=== PATIENT | male | born 1970 | race Caucasian/White ===

== ENCOUNTER 2017-04-10 08:37 | Emergency (ER) | payer OTHER ==
[~2017-04-10] VITALS: Ht 162.6 cm; Wt 56.7 kg
[~2017-04-10 08:37] MED LIST: COLACE100 MG PO; DOCUSATE SODIU250 MG PO; ETODOLAC400 MG PO; LITHIUM8 MEQ/5 ML PO; MAGNESIUM CITR296 ML PO; METAMUCIL1 PKT NG; MULTI VITAMIN1 EACH PO; PAXIL10 MG/5 ML PO; PROPRANOLOL HCL20 MG PO; ZYPREXA ZYDIS20 MG PO; ZYPREXA20 MG PO
[2017-04-10] MEDS ORDERED: BACLOFEN10 MG PO (09:01)
[2017-04-10] MEDS ORDERED: ONDANSETRON ODT8 MG PO (09:01)
[2017-04-10] MEDS ORDERED: ADULT GLYCERIN1 EACH PR (09:36)
[2017-04-10] MEDS ORDERED: FLEET ENEMA133 ML PR (09:36)
[2017-07-19] MEDS ORDERED: BACLOFEN10 MG PO (19:03)
[2017-07-19] MEDS ORDERED: MILK OF MA400 MG/5 M PO (19:04)
[2017-07-19] MEDS ORDERED: CEFADROXIL500 MG PO (19:05)
[2017-07-19] MEDS ORDERED: BACTRIM DS TAB1 EACH PO (19:05)
[2017-08-14] MEDS ORDERED: BACTRIM DS TAB1 EACH PO (00:14)
== END 2017-04-10 11:56 | disposition home or self-care (01) ==
LOC: ED 08:37
DX: K56.41 Fecal impaction (principal); F20.9 Schizophrenia, unspecified; Z79.899 Other long term (current) drug therapy
CPT/HCPCS: 99282

== ENCOUNTER 2017-05-15 16:28 | Emergency (ER) | payer OTHER ==
[~2017-05-15] VITALS: Ht 162.6 cm; Wt 56.7 kg
[~2017-05-15 16:28] MED LIST changes: +ADULT GLYCERIN1 EACH PR; +BACLOFEN10 MG PO; +FLEET ENEMA133 ML PR; +ONDANSETRON ODT8 MG PO
[2017-07-19] MEDS ORDERED: BACLOFEN10 MG PO (19:03)
[2017-07-19] MEDS ORDERED: MILK OF MA400 MG/5 M PO (19:04)
[2017-07-19] MEDS ORDERED: BACTRIM DS TAB1 EACH PO (19:05)
[2017-07-19] MEDS ORDERED: CEFADROXIL500 MG PO (19:05)
[2017-08-14] MEDS ORDERED: BACTRIM DS TAB1 EACH PO (00:14)
== END 2017-05-15 19:03 | disposition home or self-care (01) ==
LOC: ED 16:28
DX: K59.00 Constipation, unspecified (principal); F20.9 Schizophrenia, unspecified; Z79.899 Other long term (current) drug therapy
CPT/HCPCS: 80053; 83735; 85025; 96360; 99283; J7030

== ENCOUNTER 2017-05-18 09:32 | Emergency (ER) | payer OTHER ==
[~2017-05-18] VITALS: Ht 162.6 cm; Wt 55.3 kg
[2017-05-18] MEDS ORDERED: MILK OF MA400 MG/5 M PO (09:56)
[2017-07-19] MEDS ORDERED: BACLOFEN10 MG PO (19:03)
[2017-07-19] MEDS ORDERED: MILK OF MA400 MG/5 M PO (19:04)
[2017-07-19] MEDS ORDERED: CEFADROXIL500 MG PO (19:05)
[2017-07-19] MEDS ORDERED: BACTRIM DS TAB1 EACH PO (19:05)
[2017-08-14] MEDS ORDERED: BACTRIM DS TAB1 EACH PO (00:14)
== END 2017-05-18 18:18 | disposition home or self-care (01) ==
LOC: ED 09:32
PROC: 0T9B70Z Drainage of Bladder with Drainage Device, Via Natural or Artificial Opening (ICD-10-PCS; principal; 2017-05-18)
DX: K59.00 Constipation, unspecified (principal); Z79.899 Other long term (current) drug therapy
CPT/HCPCS: 51701; 74020; 74177; 80053; 81001; 83735; 85025; 96360; 99284; J7030; Q9967

== ENCOUNTER 2017-05-19 11:45 | Inpatient (IN) | payer OTHER ==
[~2017-05-19] VITALS: Ht 162.6 cm; Wt 56.7 kg
[~2017-05-19 11:45] MED LIST changes: +MILK OF MA400 MG/5 M PO
--- NOTE | 2017-05-19 18:29 | NUR ---
PT ARRIVED TO FLOOR WITH CAREGIVER AT BEDSIDE. PT MOSTLY NON-VERBAL. 2 PERSON ASSIST, CAREGIVER WILL ASSIST. IV STARTED, FLUIDS RUNNING. CLEAR LIQUIDS AT THIS TIME.
--- NOTE | 2017-05-19 19:25 | NUR ---
RECIEVED REPORT FROM DAY SHIFT NURSE. PT IN BED WITH CAREGIVER AT BEDSIDE. PT APPEARS TO BE IN ALOT OF PAIN. CONSTANT FROWN NOTED. PT HAS NOT VOIDED SINCE HE ARRIVED ON MS. HUMBERTO RUANO IN REACH.
--- NOTE | 2017-05-19 20:00 | NUR ---
ATIVAN ADMINISTERED. CALLED MD FOR ENEMA ORDER AND CATHETER ORDER. CAREGIVER AT BEDSIDE. CALL RUANO IN REACH.
--- NOTE | 2017-05-19 20:36 | NUR ---
FAYE CATHETER INSERTED AT 2030 AFTER BLADDER SCAN SHOWED OVER 999CC IN BLADDER.
--- NOTE | 2017-05-19 21:03 | NUR ---
SOAP SUDS ENEMA ADMINISTERED. PT ABLE TO TOLERATE 900CC. SMALL AMOUNT OF STOOL LEAKED OUT AFTER ADMINISTRATION. PT LYING IN L LATERAL GONZALES. CAREGIVER AT BEDSIDE. ENCOURAGED CAREGIVER TO USE CALL LIGHT WHEN PT STARTS TO EXPELL FLUID FROM RECTUM. CALL RUANO IN REACH.
--- NOTE | 2017-05-19 21:14 | NUR ---
PT UP TO BSC WITH HELP OF CAREGIVER. CALL RUANO IN REACH.
--- NOTE | 2017-05-19 21:30 | NUR ---
700CC BROWN LIQUID OUT. PT BACK TO BED. SECOND ENEMA TO BE GIVEN IN ABOUT 1/2 HOUR.
--- NOTE | 2017-05-19 22:00 | NUR ---
SECOND SOAP SUDS ENEMA GIVEN IN L LATERAL GONZALES. PT ABLE TO TOLERATE 1000CC. CAREGIVER AT BEDSIDE. CALL RUANO IN REACH.
--- NOTE | 2017-05-19 22:35 | NUR ---
PT UP TO BSC WITH ASSIST FROM CAREGIVER. DR. MILLER IN TO SEE PT.
--- NOTE | 2017-05-19 22:45 | NUR ---
PT OFF BSC-600CC LIQUID BROWN STOOL OUT. PT BACK TO BED WITH HELP OF CAREGIVER. TORADOL ADMINISTERED. PT STILL WITH CONSTANT FROWN-ATIVAN AND TORADOL GIVEN. NEW IVF HANGING. CALL RUANO IN REACH.
--- NOTE | 2017-05-20 01:31 | NUR ---
PT SLEEPING. VS OBTAINED. IVF INFUSING W/O DIFFICULTY. CAREGIVER AT BEDSIDE. CALL RUANO IN REACH.
--- NOTE | 2017-05-20 03:45 | NUR ---
PT SLEEPING. CAREGIVER AT BEDSIDE. IVF INFUSING W/O DIFFICULTY. CALL RUANO IN REACH.
--- NOTE | 2017-05-20 04:58 | NUR ---
PT SLEEPING. CAREGIVER AT BEDSIDE. IVF INFUSING W/O DIFFICULTY. CALL RUANO IN REACH.
--- NOTE | 2017-05-20 05:30 | NUR ---
PT INCONT OF LIQUID STOOL. BED BATH PERFORMED. BED LINEN CHANGED. PT UP TO BSC. ABLE TO PASS SMALL HARD PELLET.
--- NOTE | 2017-05-20 06:12 | NUR ---
PT SLEPT MOST OF THE NIGHT. 2 SOAP SUDS ENEMAS ADMINISTERED AT START OF SHIFT W/O RESULTS. PT INCONT. OF STOOL THIS MORNING. BED BATH GIVEN. ATIVAN ADMINISTERED X3 LAST NIGHT. CAREGIVER "REGINALDO" WITH PATIENT.
--- NOTE | 2017-05-20 07:23 | NUR ---
RECIEVED BEDSIDE REPORT FROM GM ROJO. PT IN BED RESTING WITH CAREGIVER AT BEDSIDE. NO SIGNIFICANT BM OVERNIGHT. X-RAY COMPLETE THIS AM.
--- NOTE | 2017-05-20 08:03 | NUR ---
PATIENT SLEEPING, DID NOT WANT TO DISTURB HIM. WHITEBOARD UPDATED. ROOM TIDIED.
--- NOTE | 2017-05-20 09:45 | NUR ---
PT STILL SLEEPING, WOKE TO CAREGIVER FOR ASSESSMENT AND MEDICATIONS. PT APPEARS RELAXED AND COMFORTABLE. UNABLE TO FOLLOW MOST DIRECTIONS. WILL DRINK APPLE JUICE WITH CUING. FAYE DRAINING DK YELLOW URINE. NO BM YET. IMAGING NOT COMPLETE.
--- NOTE | 2017-05-20 09:50 | NUR ---
PATIENT STILL ASLEEP, GETS A LOT OF ANXIETY WHEN AWAKE SO I DO NOT WANT TO WAKE HIM FOR AM CARE UNTIL HE WAKES UP BY HIMSELF. CAREGIVER AGREES.
--- NOTE | 2017-05-20 12:10 | NUR ---
PT RECIEVED SOAPSUDS/TAP WATER ENEMA WITH MINIMAL RESULTS. PT TOLERATED PROCEDURE WELL. PT HAD SMALL AMT OF LIQUID DM IN ATTENDS PRIOR TO ENEMA. PT PLACED ON LEFT SIDE WITH ATTEND ON. WILL REPEAT ENEMA IF NO RESULTS.
--- NOTE | 2017-05-20 13:29 | NUR ---
PATIENT STILL SLEEPING. WOKE UP A FEW MINUTES AGO TO DRINK APPLE JUICE, BUT OTHERWISE SLEEPING. DID NOT WAKE UP FOR VITAL SIGNS.
--- NOTE | 2017-05-20 15:51 | NUR ---
PT IN BED WATCHING FOOTBALL WITH CAREGIVER. NO DISTRESS NOTED, PT SMILING AT STAFF. PT DRIFTED TO SLEEP WHILE DOING ASSESSMENT. NO SIZEABLE BM NOTED.
--- NOTE | 2017-05-20 16:50 | NUR ---
ADMINISTERED ADDITIONAL SOAPSUDS/TAPWATER ENEMA WITH VERY MINIMAL RESULTS. PT TOLERATED WELL. PT AGREEABLE TO SITTING ON THE COMMODE AFTER A WHILE. WILL ATTEMPT LATER THIS SHIFT.
--- NOTE | 2017-05-20 17:50 | NUR ---
NO SIGNIFCANT BM THIS SHIFT. TAP WATER/SOAPSUDS ENEMA X2. SMALL LIQUID BM WITH FIRST ENEMA. PT UP TO COMMODE, MINIMAL RESULTS. PT UNWILLING TO BE OOB FOR ANY LENGTH OF TIME. NO PRN ATIVAN GIVEN. FAYE DRAINING WELL. IV FLUIDS CONTINUE. PT NPO AFTER MIDNIGHT.
--- NOTE | 2017-05-20 19:44 | NUR ---
RECIEVED REPORT FROM DAY SHIFT NURSE. PT SLEEPING IN BED. BED ALARM ON. CAREGIVER AT BEDSIDE. CAREGIVER DENIES NEEDS. CALL RUANO IN REACH.
--- NOTE | 2017-05-20 20:40 | NUR ---
TAP WATER EMEMA ADMINISTERED IN L LATERAL GONZALES. PT ABLE TO TOLERATE 1000ML. PT MUCH MORE PLESANT TONIGHT. HE IS MORE VERBAL. ASKED ME WHAT MY NAME WAS. PT DOES NOT APPEAR TO BE IN ANY KIND OF DISTRESS. NO C/O PAIN EXCEPT WHEN TUBE WAS INITIALLY INSERTED INTO RECTUM. PROPANOLOL HELD THIS EVENING, HR 55-60. CAREGIVER AT BEDSIDE. CALL RUANO IN REACH.
--- NOTE | 2017-05-20 21:26 | NUR ---
PT UP TO BSC, HAD 450CC BROWN LIQUID OUT OF RECTUM ALONG WITH 5-6 SMALL-MED HARD STOOLS. PT BACK IN BED. BED ALARM ON. WILL REPEAT TAP WATER ENEMA IN 30 MINUTES. CALL RUANO IN REACH.
--- NOTE | 2017-05-20 21:50 | NUR ---
ADMINISTERED SECOND TAP WATER ENEMA. PT ABLE TO TOLERATE 1000CC IN. HE WAS ONLY ABLE TO HOLD IT FOR ABOUT 5 MINUTES. PT UP TO BSC AT THIS TIME. CAREGIVER SITTING WITH PATIENT WHILE HE TRIES TO HAVE BM. CALL RUANO IN REACH.
--- NOTE | 2017-05-20 22:20 | NUR ---
PT OFF BSC. 700CC BROWN LIQUID OUT. NO FORMED STOOL. PT BACK TO BED. ATTENDS IN PLACE. CAREGIVER AT BEDSIDE. CAREGIVER AND PT DENY NEEDS. CALL RUANO IN REACH.
--- NOTE | 2017-05-20 23:44 | NUR ---
PT UP TO BSC WITH 2 PERSON ASSIST. VOIDED. BACK TO BED. REPOSITIONED TO R SIDE, PT STATES SHE IS NOT COMFORTABLE ON THAT SIDE. PT SUPINE WITH BLE ELEVATED ON 2 PILLOWS. CALL RUANO IN REACH.
--- NOTE | 2017-05-21 00:16 | NUR ---
PT SLEEPING. CAREGIVER AT BEDSIDE. CHECKED FOR EPISODE OF INCONT., FOUND DRY. CALL RUANO IN REACH.
--- NOTE | 2017-05-21 01:36 | NUR ---
PT SLEEPING. CAREGIVER AT BEDSIDE. CHECKED FOR EPISODE OF INCONT., FOUND DRY. CALL RUANO IN REACH. BED ALARM ON.
--- NOTE | 2017-05-21 03:45 | NUR ---
PT CHECKED FOR EPISODE OF INCONT., FOUND DRY. IVF INFUSING W/O DIFFICULTY. FAYE EMPTIED PALE YELLOW URINE. BED ALARM ON, CALL RUANO IN REACH. PT HAS BEEN NPO SINCE 2229.
--- NOTE | 2017-05-21 04:26 | NUR ---
PT SLEEPING. BED ALARM ON, CALL RUANO IN REACH.
--- NOTE | 2017-05-21 05:05 | NUR ---
CHECKED FOR EPISODE OF INCONT., FOUND DRY. PT SLEEPING. ACTIVE BS AUSCULTATED. NO MORE STOOLS SINCE FIRST ENEMA GIVEN. IVF INFUSING W/O DIFFICULTY. CALL RUANO IN REACH. CAREGIVER DENIES NEEDS AT THIS TIME.
--- NOTE | 2017-05-21 05:45 | NUR ---
2 TAP WATER ENEMAS ADMINISTERED THIS SHIFT. LITTLE RESULTS AFTER FIRST ENEMA-(5-6 SMALL/MED HARD PELLETS). NO RESULTS WITH SECOND ENEMA. PT APPEARED MUCH MORE COMFORTABLE THIS SHIFT, SMILING AT STAFF. SLEPT MOST OF THE NIGHT. NO INCONTINENCE. ATTENDS IN PLACE. CAREGIVER AT BEDSIDE.
--- NOTE | 2017-05-21 06:50 | NUR ---
XRAY IN OBTAINING ABD XRAY.
--- NOTE | 2017-05-21 07:29 | NUR ---
PT IS VERY ANXIOUS, GRIMACING, TEARFUL. PRN ATIVAN GIVEN. DISSCUSSED PLAN OF THE DAY.
--- NOTE | 2017-05-21 08:00 | NUR ---
PATIENT RESTING IN BED. CAREGIVER STATES THAT PATIENT JUST CALMED DOWN AND ISN'T IN THE MOOD TO BE BOTHERED FOR ADL'S. LEFT WASH CLOTH, CLEAN GOWN AND TOOTH BRUSH OUT FOR USE. TALKED TO CAREGIVER ABOUT CALLING WHEN ITS A GOOD TIME FOR CARE.
--- NOTE | 2017-05-21 09:47 | NUR ---
PT SLEEPING, WOKE TO CAREGIVER QUESTIONS. TOOK ORAL MEDS WITH SMALL AMT OF JUICE PER DR MILLER'S ORDER. PROPRANOL HELD D/T LOWER BP AND CAREGIVER REQUEST. WAITING FOR SPOUT LINER HELPER TO COME IN TO SIGN CONSENT FOR PROCEDURE AND FLU SHOT.
--- NOTE | 2017-05-21 10:21 | NUR ---
SPOKE WITH PT'S CAREGIVERS AND WHIPPED TOPPING MIXER. ALL AGREED TO THE PROCEDURE, WHIPPED TOPPING MIXER AND AND CAREGIVER SIGNED CONSENT WITH RN WITNESS. ALL QUESTIONS WERE ANSWERED. VERBAL CONSENT FOR FLU SHOT WELL.
--- NOTE | 2017-05-21 10:30 | NUR ---
SPOKE WITH CAREGIVER REGINALDO VA [phone] AT BEDSIDE WITH PATIENT. PATIENT WILL RETURN HOME WITH THEM TO [facility]. PATIENT IS AWAKE, QUIET IN BED. CAREGIVER STATES PATIENT HAS BEEN IN [facility]. HAS CONSTIPATION ON OCCASION ABOUT ONCE EVERY 2 MONTHS. PATIENT IS ON BOWEL ROUTINE, USUALLY ONE ENEMA RELIEVES THE PROBLEM. HE STATES PATIENT HAD A MEDICATION CHANGE RECENTLY THAT THEY THINK MADE THIS WORSE. HE STATES DR MILLER WAS IN AND THE PLAN IS FOR SCOPE OF THE BOWEL LATER TODAY. HE STATES THE AGING AND DISABILITY ROLLER MILL OPERATOR IS COMING TO SIGN SURGERY PERMIT. HER NAME IS MATT BOSWELL. REGINALDO HAS NO BARRIERS TO RETURNING PATIENT HOME TO [facility].
--- NOTE | 2017-05-21 10:47 | NUR ---
PT SLEEPING, BREATHING EVEN AND UNLABORED. TAPING SUPERVISOR AND CAREGIVERS AT BEDSIDE.
--- NOTE | 2017-05-21 10:50 | NUR ---
PATIENT RESTING COMFORTABLY IN BED. CAREGIVER IN ROOM. NO NEEDS AT THIS TIME. TALKED TO CAREGIVER ABOUT BATHING THIS AFTERNOON.
--- NOTE | 2017-05-21 11:28 | NUR ---
PATIENT RESTING IN BED WITH EYES CLOSED.
--- NOTE | 2017-05-21 12:10 | NUR ---
PATIENT RESTING IN BED. BED BATH COMPLETE. [place], FAYE CATH, AND ORAL CARE DONE. LINENS CHANGED. CAREGIVER IN ROOM. NO OTHER NEEDS AT THIS TIME.
--- NOTE | 2017-05-21 14:29 | NUR ---
PT TRANSFERED TO SURGERY WITH REGINALDO, CAREGIVER. REPORT GIVEN TO GM MCDOWELL AND GM BROWN.
--- NOTE | 2017-05-21 15:41 | NUR ---
05/21/17 1541 Joana Mendoza 1532-PATIENT ARRIVED TO PACU ON 4L NC O2 SAT 100% PATIENT LAYING ON LEFT LATERAL SIDE. ABDOMEN SOFT. NONAROUSABLE. FAYE CATHETER TO GRAVITY.
--- NOTE | 2017-05-21 16:39 | NUR ---
PATIENT IS BACK FROM SURGERY. GOT PATIENT TUCKED INTO REGULAR BED. SEEMS TO BE DOING FAIRLY WELL.
--- NOTE | 2017-05-21 17:00 | NUR ---
PATIENT RESTING IN BED WATCHING TV. CAREGIVER IN ROOM. NO NEEDS AT THIS TIME.
--- NOTE | 2017-05-21 17:43 | NUR ---
PLACED FAYE CATHETER IN STERILE FASHION D/T URINARY RETENTION. BLADDER SCAN SHOWED 346ML POST VOID. PT TOLERATED WELL.
--- NOTE | 2017-05-21 18:08 | NUR ---
PT WENT TO PROCEDURE THIS AFTERNOON. BLOCKAGE CLEARED. ADVANCED TO REGULAR DIET, TOLERATED WELL. FAYE MAY BE D/C WHEN PO INTAKE IS ADEQUATE. NEW MEDICATIONS ORDERED. IV S/L.
--- NOTE | 2017-05-21 18:13 | NUR ---
PATIENT SITTING STRAIGHT UP IN BED. CAREGIVER ASSISTING WITH DINNER. NO OTHER NEEDS AT THIS TIME.
--- NOTE | 2017-05-21 19:00 | NUR ---
RECIEVED REPORT FROM DAY SHIFT NURSE. PT SITTING UP IN CHAIR, PEG ALARM ON. FAMILY IN ROOM. CALL RUANO IN REACH.
--- NOTE | 2017-05-21 19:20 | NUR ---
RECIEVED REPORT FROM DAY SHIFT NURSE. PT RESTING IN BED. CAREGIVER AT BEDSIDE. CAREGIVER REQUESTING FOR ATIVAN TO BE GIVEN TO HELP PT RELAX SO HE MAY SLEEP. I EXPLAINED TO HIM THAT PT SHOULD TRY TO SLEEP WITHOUT IT TONIGHT, IF PT IS ANXIOUS AND RESTLESS I CAN ALWAYS CALL . CALL BINDU IN REACH.
--- NOTE | 2017-05-21 19:59 | NUR ---
REMOVED FAYE FROM PT. TOLERATED WELL. PLACED ATTENDS IN THE EVENT HE IS INCONT. BENSON CAREGIVER AT BEDSIDE. WILL CALL WHEN PT NEEDS SOMETHING.
--- NOTE | 2017-05-21 20:52 | NUR ---
PT RESTING IN BED. HR AROUND 100 BPM. PT APPEARS ANXIOUS. OBTAINED ORDER FOR HOME MEDS AND ATIVAN. CALL RUANO IN REACH.
--- NOTE | 2017-05-21 21:15 | NUR ---
PT UP TO BSC TO ATTEMPT TO VOID. LOTS OF FLATUS EXPELLED. NO URINE OUTPUT AT THIS TIME. ATTENDS IN PLACE. CAREGIVER STATES PT CAN BE INCONT. AT TIMES. CALL RUANO IN REACH.
--- NOTE | 2017-05-21 23:08 | NUR ---
PT SLEEPING. CHECKED FOR EPISODE OF INCONT., FOUND DRY. CAREGIVER AT BEDSIDE. CALL RUANO IN REACH.
--- NOTE | 2017-05-22 01:09 | NUR ---
CHECKED FOR EPISODE OF INCONT., FOUND DRY, ASKED PT IF HE NEEDED TO VOID, PT SAID NO. BS ACTIVE. CAREGIVER AT BEDSIDE, CALL RUANO IN REACH.
--- NOTE | 2017-05-22 02:32 | NUR ---
PT HAD LARGE EPISODE OF URINARY INCONTINENCE. BED LINEN CHANGED. WASHED PT. BRIEF CHANGED. HYDRATION OFFERERD. CAREGIVER DENIES NEEDS. CALL RUANO IN REACH. BED ALARM ON.
--- NOTE | 2017-05-22 04:41 | NUR ---
WALKED INTO PT'S ROOM, PT WAS LYING SIDEWAYS ON HIS BED, EYES WIDE OPEN, STATES HE DOES NOT FEEL GOOD. ADMINISTERED 0.25MG ATIVAN. CHECKED FOR EPISODE OF INCONT., FOUND DRY. CAREGIVER AT BEDSIDE. CALL RUANO IN REACH.
--- NOTE | 2017-05-22 05:20 | NUR ---
COLONOSCOPY W/ WASHOUT SUCCESSFUL YESTERDAY. PT ANXIOUS AT START OF SHIFT, ATIVAN ADMINISTERED. FAYE CATH D/C. INCONTINENT OF URINE. PT ANSWERS SIMPLE QUESTIONS, DOES NOT ANSWER APPROPRIATELY AT TIMES. MOSTLY NON-VERBAL. EATING AND DRINKING WELL. MIRALAX, SENNA, METAMUCIL ON OCT. CAREGIVER (REGINALDO) AT BEDSIDE ASSISTS WITH CARE. MOST LIKELY D/C TODAY.
--- NOTE | 2017-05-22 06:00 | NUR ---
PT INCONT OF URINE. LINEN CHANGE. BRIEF CHANGE. NO C/O. CAREGIVER AT BEDSIDE.
--- NOTE | 2017-05-22 07:16 | NUR ---
CAREGIVER IN WITH PT. HE IS LAYING IN BED, WITH A PAINED EXPRESSION ON HIS FACE. HE STRUGGLED TO COMMUNICATE, TRIED TO SMILE AND FOLLOWED THE COMMAND OF CG TO THANK ME FOR COMING IN. I WILL CONTINUE TO FOLLOW
--- NOTE | 2017-05-22 07:40 | NUR ---
BEDSIDE REPORT FROM ALIA WORRELL, PT SLEEPING RR EVEN AT 16 BPM, CAREGIVER AT BEDSIDE.
--- NOTE | 2017-05-22 08:20 | NUR ---
PATIENT SITTING UP IN BED. WASHED HANDS AND FACE. ORAL CARE DONE. CAREGIVER STATES THAT HE WILL HAVE THE PATIENT TAKE A BATH WHEN HE GOES HOME TODAY. FRESH ICE WATER GIVEN. NO OTHER NEEDS AT THIS TIME.
--- NOTE | 2017-05-22 11:02 | NUR ---
PT RESTING IN BED WAS UP WITH CAREGIVERS TO VOID. NEW DRESSING PLACED BETWEEN TOES AT THIS TIME. HAS CAREGIVER AT BEDSIDE
--- NOTE | 2017-05-22 11:16 | NUR ---
PATIENT LAYING IN BED WATCHING TV CAREGIVER IN ROOM. NO OTHER NEEDS AT THIS TIME.
--- NOTE | 2017-05-22 12:51 | NUR ---
patient resting in bed with eyes closed. bed alarm on.
--- NOTE | 2017-05-22 13:00 | NUR ---
patient up to commode with two person assist.
--- NOTE | 2017-05-22 14:00 | NUR ---
PATIENT RESTING WITH EYES CLOSED IN BED. CAREGIVER IN ROOM. NO NEEDS AT THIS TIME.
[2017-05-22] MEDS ORDERED: METAMUCIL FIBE3.4 GM PO (14:37)
[2017-05-22] MEDS ORDERED: MIRALAX17 GM PO (14:37)
[2017-05-22] MEDS ORDERED: SENNA LAX8.6 MG PO (14:38)
[2017-05-22] MEDS ORDERED: PROPRANOLOL HCL20 MG PO (14:45)
--- NOTE | 2017-05-22 15:13 | NUR ---
DISCHARGE INSTRUCTIONS GIVEN TO CAREGIVER REGINALDO. ACTIVITY TO BE ENCOURAGED UP AND WALKING AT HOME. GOOD HYDRATION TO BE MAINTAINED, TO PROMOTE BOWEL HEALTH. MEDICATION CONSULT BY [facility], RN GAVE MEDICATION EDUCATION LAST DOSE NEXT DOSE. PT TO FOLLOW UP WITH ON SUNDAY PREVIOUSLY SCHEDULED. CAREGIVER ABLE TO VERBALIZE ALL EDUCATIONS BACK TO RN
--- NOTE | 2017-06-15 07:48 | OR ---
[facility] [address], [place] [address] Signed DATE OF PROCEDURE: 05/21/17 PREOPERATIVE DIAGNOSES Recent progressive unrelenting fecal impaction. Mental retardation and other psychiatric illness. POSTOPERATIVE DIAGNOSIS: Normal colon to cecum. PROCEDURE PERFORMED: Colonoscopy with lavage of fecal impaction. SURGEON: Fadi Miller MD. ANESTHESIA: Propofol infusion, Julee Beltran CRNA. INDICATION This 46-year-old retarded man was admitted by me on May 19, 2017, following his third visit to the emergency room with an unrelenting fecal impaction. Various approaches had been undertaken to loosen his impaction. He had undergone a CT scan several days prior to that confirming a markedly dilated colon with air-fluid levels and a fair amount of stool in the rectosigmoid. Mineral oil and Mag Citrate were ineffective in addition to 2 enemas that had been performed. Since his admission, he has undergone treatment only from "below" including enemas, fecal disimpaction a couple times, and so on. His KUB today shows a fair amount of air within the colon, but no air-fluid levels and improvement. I have recommended colonoscopy to assure that complete relief of the fecal impaction has been accomplished as well as to assess for neoplastic or other unusual causes of the obstructive process. His guardian service desk lead understands the risks of bleeding, infection, and perforation. The patient himself is not competent otherwise. FINDINGS There was some solid stool in the upper part of the rectum, much of it out of reach of the examining finger, even under sedation, however. Colonoscopy was undertaken allowing passage of the scope beyond the impaction to the more proximal colon. Colonoscopy was undertaken to the right colon with visualization of the cecum. There was some residual stool, but not much more proximally. Irrigation was undertaken throughout. With various maneuvers, including irrigation and scope manipulation, the imp acted stool clips completely freed and at this point, the colon is free of any impaction. There is no evidence of neoplastic change. Scarring, stricture, or of diverticular formation that would account for his problem, mostly it is functional. PROCEDURE IN DETAIL The patient was brought to the endoscopy suite and placed in lateral decubitus position. He was given intravenous sedation with Propofol infusion and full cardiopulmonary Electronically Signed By: FADI MILLER MD 06/15/17 0748 PATIENT NAME: YESENIA BRISCOE OPERATIVE REPORT DATE OF : 74 PHYSICIAN: FADI MILLER MD REPORT #: [id number] REPORT IS CONFIDENTIAL AND NOT TO BE RELEASED WITHOUT AUTHORIZATION [facility] [address], [place] [address] Signed monitoring. Digital rectal examination was undertaken showing some bits of partially formed stool in the high rectum. An Olympus video colonoscope was passed in the rectum. There was no sign of rectal neoplasm. The scope was advanced to the rectosigmoid where a stool bolus was noted. There was some room around it and therefore the s cope was manipulated around it with irrigation and other maneuvers ultimately passing beyond to the sigmoid and upward well beyond that. There was not much of formed stool more proximal in the rectosigmoid at this point. Once the right colon was intubated, irrigation was undertaken. The scope was withdrawn decompressing the colon as much as possible with gas. Further withdrawal of the scope was undertaken and at the rectosigmoid irrigation and mechanical breakup using the tip of the endoscope undertaken. Irrigation was undertaken more fully and retroflexed view undertaken allowing for withdrawal of some impacted stool. Retroflexed view in the rectum was then undertaken confirming that all the stool was cleared from the rectosigmoid and colon and minimal amounts in the rectum itself. The scope was straightened, withdrawn, and removed and the patient was taken to recovery room in good condition. CONCLUDING DIAGNOSIS: Complete clearance of the colon at this point. PLAN We will initiate a persistent bowel regimen to start. He will likely be able to be discharged once tolerating a regular diet. MD PAYAM Albert/Andrea /[id number] cc: MD Steve Thompson MD Electronically Signed By: FADI MILLER MD 06/15/17 0748 PATIENT NAME: YESENIA BRISCOE OPERATIVE REPORT DATE OF : 74 PHYSICIAN: FADI MILLER MD REPORT #: [id number] REPORT IS CONFIDENTIAL AND NOT TO BE RELEASED WITHOUT AUTHORIZATION
--- NOTE | 2017-06-15 08:27 | HP ---
[facility] [address], [place] [address] Signed DATE OF ADMISSION: 05/19/17 REASON FOR ADMISSION: Progressive unrelenting significant constipation. HISTORY OF PRESENT ILLNESS This 46-year-old white man is mentally retarded. He presented to the emergency room approximately 2 days ago and was evaluated by Dr. Esparza with at least 10 days of no bowel movement. According to his caregiver, Kalpesh, he has a bowel regimen of having bowel movements approximately every 4 days or so. If no bowel movement is forthcoming, he sometimes receives an enema and occasionally milk of magnesia. He has been on MiraLAX in the past. He has some problem with his toe and has had spasticity related to it and was prescribed Baclofen which may have recently complicated his overall bowel regimen. When advised of his constipation problem 2 days a g o by Dr. Esparza following a CT scan of his abdomen which showed a somewhat dilated and markedly impacted colon. He was advised by me to initiate mineral oil 60 mL p.o. as well as mag Citrate. He was given those preparations and only a small amount of stool was noted. Dr. Steve Chaves, emergency room physician, today saw him and efforts at manual disimpaction were undertaken retrieving some stool, but then the stool in question was out of reach of the examining finger. On that basis, additional enemas were undertaken which were not beneficial. Somewhat out of desperation, I was called for further assistance. The patient did not have additional imaging today, but certainly did have abdominal and pelvic CT as well as plain abdominal x-ray on 05/18/2017. Distended fluid-filled colon was noted and rectal stool was deemed the offending cause. The cecum was distended at 9 cm in diameter. The patient is admitted at this time for further evaluation and care. PAST MEDICAL HISTORY Significant for mental retardation. He does not have Down syndrome. He does not smoke. Does not use alcohol. He is nonverbal. His past medical history does include MRDD, schizophrenia, and constipation. MEDICATIONS Include Propranolol, DSS, Etodolac, Olanzapine, recently Baclofen, Milk of Magnesia, Fossil Citrate liquid, Paroxetine and Multivitamin. Electronically Signed By: FADI MILLER MD 06/15/17 0827 PATIENT NAME: YESENIA BRISCOE HISTORY AND PHYSICAL DATE OF : 74 PHYSICIAN: FADI MILLER MD REPORT #: [id number] REPORT IS CONFIDENTIAL AND NOT TO BE RELEASED WITHOUT AUTHORIZATION [facility] [address], [place] [address] Signed ALLERGIES: He has no known drug allergies. REVIEW OF SYSTEMS He is unable to respond for such an inquiry, but his inbound telemarketer, Kalpesh, notes he has not had shortness of breath or evidence of chest pain in his opinion. His abdominal pain is such that when he initiates bowel movement he has a fair amount of discomfort. PHYSICAL EXAM Relatively thin white man who is nonverbal, but cooperative, having had some Ativan. Trachea is midline. He has no hoarseness. There is no crepitus. Abdomen is somewhat distended, but not tender at all. I detect no mass. He is on the commode at this time. His lower extremities appeared to show no sign of edema. An IV is in place. A Kirkland catheter was placed. He did have a 1000 mL residual. LABORATORY DATA From yesterday showed a white count of 5.2, hematocrit 33, platelets 101,000. Chem profile is normal overall, glucose 80. Liver enzymes normal. Total protein 5.8, albumin 3.3. Urinalysis specific gravity 1.031. Otherwise, normal. ASSESSMENT AND PLAN I reviewed some of his CT scan findings showing fair amount of fluid within the cecum and upper portions of colon as well as some more solid stool distally. Enema therapy has been initiated since admission under my direction and the plain x-ray will be obtained in the morning. There has been some production with the enemas, but not completely. He may ultimately require exam under anesthesia. Attempts at fecal disimpaction that way, possible endoscopic evaluation to allow for decompression. We are mindful of the hazards of severe constipation and fecal impaction including development of stercoral ulcer or more proximal dilation of the stomach with rupture which should be a serious problem indeed. We are taking measures to avoid that as noted. MD PAYAM Albert/Andrea /[id number] Electronically Signed By: FADI MILLER MD 06/15/17 0827 PATIENT NAME: YESENIA BRISCOE HISTORY AND PHYSICAL DATE OF : 74 PHYSICIAN: FADI MILLER MD REPORT #: [id number] REPORT IS CONFIDENTIAL AND NOT TO BE RELEASED WITHOUT AUTHORIZATION [address] [address] Signed cc: MD Imtiaz Ramey MD Electronically Signed By: FADI MILLER MD 06/15/17 0827 PATIENT NAME: YESENIA BRISCOE HISTORY AND PHYSICAL DATE OF : 74 PHYSICIAN: FADI MILLER MD REPORT #: [id number] REPORT IS CONFIDENTIAL AND NOT TO BE RELEASED WITHOUT AUTHORIZATION
--- NOTE | 2017-06-28 08:26 | DS ---
[facility] [address], [place] [address] Signed ADMISSION DATE: 05/19/2017 DISCHARGE DATE: 05/22/2017 REASON FOR ADMISSION: This 46-year-old white man is mentally retarded and presented to the emergency room approximately 2 days prior to current admission and evaluation and evaluated by Dr. Esparza with at least 10 days of no bowel movement. According to his caregiver, "Kira," he has a bowel regimen of having bowel movements approximately every 4 days or so. If no bowel movement is forthcoming, he would receive an enema and occasionally milk of magnesia. He has been on MiraLAX in the past. He has had some problem with his toe and recently was prescribed baclofen, which may have recently complicated his overall bowel regimen. A CT scan was performed of his abdomen in the emergency room, which had shown a dilated and markedly impacted colon. He was advised by me at that time to initiate mineral oil 60 mL dose as well as magnesium citrate. He was given those preparations and only a small amount of stool was noted. On the day of admission, Dr. Chaves, emergency room physician saw him and efforts at manual disimpaction were undertaken retrieving some stool, but the stool in question was out of reach of the examining finger. On that basis, additional enemas were undertaken, which were not beneficial. I was called for further assistance. Additional imaging was not undertaken today, but given his previous imaging with distention of the cecum at about 9 cm, he was admitted to my service for further evaluation and care. PERTINENT PHYSICAL EXAMINATION: GENERAL: Showed a thin white man, who is nonverbal, but cooperative, having had some Ativan for agitation. HEENT: Trachea is midline. He had no hoarseness. There is no crepitus. ABDOMEN: Somewhat distended, but nontender. There was no distinct mass. EXTREMITIES: Lower extremities showed no evidence of edema. Kirkland catheter was placed. He was noted to have a 1000 mL residual urine after voiding. LABORATORY DATA: His white count is 5.2, hematocrit 33, and platelets 101,000. Chem profile normal. Liver enzymes normal. Albumin 3.3. Urinalysis normal. HOSPITAL COURSE: He was admitted with an objective to provide enema therapy in hopes of loosening up his fecal impaction. He was given Ativan due to his apparent anxiety and although somewhat somnolent, was cooperative. A digital rectal examination showed some solid formed stool at the anal canal, a capacious rectum, and stool out of reach of the examining finger. Enemas had been initiated with minimal production. Electronically Signed By: FADI MILLER MD 06/28/17 0826 PATIENT NAME: YESENIA BRISCOE DISCHARGE SUMMARY DATE OF : 74 PHYSICIAN: FADI MILLER MD REPORT #: [id number] REPORT IS CONFIDENTIAL AND NOT TO BE RELEASED WITHOUT AUTHORIZATION [address] [address] Signed By May 21, 2017, without much improvement, he was taken to the endoscopy suite and underwent colonoscopy with lavage of the fecal impaction. Some solid stool was noted in the upper part of the rectum. Much of it was out of reach of the examining finger even under sedation. Colonoscopy was undertaken allowing passage of the scope well beyond the impaction to the more proximal colon. Colonoscopy was undertaken of the right colon with visualization of the cecum. There was some residual stool there, but not much proximally. Irrigation was undertaken throughout and with various maneuvers including irrigation and scope manipulation, the impacted stool was completely freed. By conclusion, the colon was free of any impaction. There was no evidence of neoplastic change, scarring, stricture, diverticular formation, or other problem. The following day, he was doing well overall. He was tolerating a regular diet and voiding well. He had no abdominal distention or tenderness. Plans were made for discharge with a bowel regimen outlined as well. DISCHARGE MEDICATIONS: Were to include: 1. MiraLAX 17 g powder pack 1 packet daily. 2. Metamucil fiber packet 3.4 g p.o. daily. 3. Senna laxative 8.6 mg tablets 2 tabs p.o. at bedtime. 4. Continuance of propranolol 20 mg tablets 60 mg b.i.d. He will continue with his usual medications includin. [place] 8 mEq p.o. b.i.d. 2. Paroxetine (Paxil) 10 mg/5 mL, 10 mL p.o. b.i.d. 3. Multivitamin 1 tab p.o. daily. 4. Etodolac 400 mg tablets b.i.d. 5. Zyprexa olanzapine 20 mg tablet p.o. daily. 6. Glycerin suppository one rectally as needed. He will for the time being discontinue his baclofen, Fleet Enema, DSS, and magnesium hydroxide. He will have regularly scheduled follow up with Dr. Lofton as previously noted. DISCHARGE DIAGNOSES: 1. Fecal impaction, unresponsive to enema therapy and other measures. 2. Recent prescription of baclofen, possibly contributory to constipation and fecal impaction. 3. Severe mental retardation. 4. Anxiety disorder. Electronically Signed By: FADI MILLER MD 06/28/17 0826 PATIENT NAME: YESENIA BRISCOE DISCHARGE SUMMARY DATE OF : 74 PHYSICIAN: FADI MILLER MD REPORT #: [id number] REPORT IS CONFIDENTIAL AND NOT TO BE RELEASED WITHOUT AUTHORIZATION [address] [place], [place] [address] Signed MD PAYAM Albert/LILIL /[id number] cc: Imtiaz Lofton MD Electronically Signed By: FADI MILLER MD 06/28/17 0826 PATIENT NAME: YESENIA BRISCOE Gabino DISCHARGE SUMMARY DATE OF : 74 PHYSICIAN: FAID MILLER MD REPORT #: [id number] REPORT IS CONFIDENTIAL AND NOT TO BE RELEASED WITHOUT AUTHORIZATION
[2017-07-19] MEDS ORDERED: BACLOFEN10 MG PO (19:03)
[2017-07-19] MEDS ORDERED: MILK OF MA400 MG/5 M PO (19:04)
[2017-07-19] MEDS ORDERED: BACTRIM DS TAB1 EACH PO (19:05)
[2017-07-19] MEDS ORDERED: CEFADROXIL500 MG PO (19:05)
[2017-08-14] MEDS ORDERED: BACTRIM DS TAB1 EACH PO (00:14)
== END 2017-05-22 15:20 | disposition home or self-care (01) | DRG 392 ==
LOC: ED 11:45 → MS 16:52
PROVIDERS: ADMIT Surgery
PROC: 3E1H88Z Irrigation of Lower GI using Irrigating Substance, Via Natural or Artificial Opening Endoscopic (ICD-10-PCS; principal; 2017-05-21 16:00)
DX: K59.09 Other constipation (principal); F20.9 Schizophrenia, unspecified; F79 Unspecified intellectual disabilities
CPT/HCPCS: 00810; 74000; 99285; J1885; J2060; J2704; J7120

== ENCOUNTER → 2017-07-19 | Emergency (ER) | payer OTHER ==
[~2017-07-19] VITALS: Ht 162.6 cm; Wt 56.7 kg
[~2017-07-19] MED LIST changes: +BACTRIM DS TAB1 EACH PO; +BENEFIBER1 EAC1 PO; +BISAC-EVAC10 MG PR; +CEFADROXIL500 MG PO; +CITRATE OF MAG296 ML PO; +DIPHENHYDRAMINE25 MG PO; +DULCOLAX5 MG PO; +ERYTHROMYCIN250 M1 PO; +INDERAL LA60 MG PO; +LACTULOSE20 GM/30 M PO; +METAMUCIL FIBE3.4 GM PO; +METOCLOPRAMIDE10 MG PO; +MINERAL OIL EN133 ML PR; +MIRALAX17 GM PO; +SENNA LAX8.6 MG PO; +TYLENOL325 MG PO
== END ==
LOC: ED 18:44
DX: K59.00 Constipation, unspecified (principal); F20.9 Schizophrenia, unspecified; Z79.899 Other long term (current) drug therapy
CPT/HCPCS: 51701; 74022; 80053; 83690; 85025; 99284

== ENCOUNTER 2017-07-25 16:33 | Emergency (ER) | payer OTHER ==
[~2017-07-25] VITALS: Ht 162.6 cm; Wt 54.4 kg
[~2017-07-25 16:33] MED LIST changes: -BENEFIBER1 EAC1 PO; -BISAC-EVAC10 MG PR; -CITRATE OF MAG296 ML PO; -DIPHENHYDRAMINE25 MG PO; -DULCOLAX5 MG PO; -ERYTHROMYCIN250 M1 PO; -INDERAL LA60 MG PO; -LACTULOSE20 GM/30 M PO; -METOCLOPRAMIDE10 MG PO; -MINERAL OIL EN133 ML PR; -TYLENOL325 MG PO
[2017-07-25] MEDS ORDERED: FLEET ENEMA133 ML PR (19:02)
[2017-08-14] MEDS ORDERED: BACTRIM DS TAB1 EACH PO (00:14)
== END 2017-07-25 22:47 | disposition home or self-care (01) ==
LOC: ED 16:33
DX: K59.00 Constipation, unspecified (principal); F20.9 Schizophrenia, unspecified; Z79.899 Other long term (current) drug therapy
CPT/HCPCS: 74000; 99283

== ENCOUNTER 2017-08-07 10:17 | Observation (INO) | payer OTHER ==
[~2017-08-07] VITALS: Ht 162.6 cm; Wt 55.8 kg
[2017-08-07] MEDS ORDERED: CITRATE OF MAG296 ML PO (13:22)
--- NOTE | 2017-08-07 16:36 | NUR ---
PT ARRIVED TO FLOOR FROM EMERGENCY DEPARTMENT AT 1620. ARRIVED VIA STRECHER, ACCOMPANIED BY GM TAN AND PT'S CAREGIVER, CAMILO. PT'S CAREGIVER ASKED THAT PT HAVE ATIVAN PRN AVAILABLE, PT IS VERY ANXIOUS AT THIS TIME, AND CAREGIVER REPORTS THAT WHEN PT WAS AN INPATIENT RECENTLY, THIS MEDICATION WAS VERY EFFECTIVE FOR HIM. ALSO NOTIFIED THIS RN THAT THE PT WILL REFUSE TO USE URINAL OR TOILET TO URINATE, AND THAT PT HAD A FAYE CATHETER DURING HIS LAST ADMISSION, AND REQUESTED THAT FAYE BE PLACED. NOTIFIED DR. CASILLAS THAT PT APEARS ANXIOUS, IS TREMBLING, FLINCHING AWAY FROM STAFF, ETC. ALSO NOTIFIED DR. CASILLAS OF CAREGIVER'S REQUEST FOR CATHETER AND FOR ATIVAN.
[2017-08-07] MEDS ORDERED: INDERAL LA60 MG PO (16:41)
[2017-08-07] MEDS ORDERED: SENNA LAX8.6 MG PO (16:43)
[2017-08-07] MEDS ORDERED: TYLENOL325 MG PO (16:45)
--- NOTE | 2017-08-07 16:46 | NUR ---
MED REC COMPLETE WITH INTERVIEW WITH REGINALDO [facility] CARE PROVIDER. PATIENT HAS ALL MORNING MEDICATIONS EXCEPT METAMUCIL OR BACLOFEN, OR TYLENOL, OR ANTIBIOTIC BACTRIM TODAY.
--- NOTE | 2017-08-07 16:51 | NUR ---
NEW PT. TOOK VITALS.
--- NOTE | 2017-08-07 17:47 | NUR ---
16 FR FAYE CATHETER INSERTED, 10 ML STERILE WATER INSERTED ONCE CATHETER IN PLACE. CATHETER SECUREMENT DEVICE TO RIGHT INNER THIGH, HOLDING CATHETER IN PLACE.
--- NOTE | 2017-08-07 18:47 | NUR ---
REGINALDO, PT'S CAREGIVER AT BEDSIDE. PT RECIEVING SOAP SUDS ENEMA FROM VIVIEN Salcedo RN.
--- NOTE | 2017-08-07 19:12 | NUR ---
RECEIVED REPORT FROM DAY SHIFT RN. PATIENT IS RESTING IN BED WITH CAREGIVER AT THE BEDSIDE. NO NEEDS NOTED.
--- NOTE | 2017-08-07 21:20 | NUR ---
PATIENT ASSESMENT COMPLETED. PATIENT HAD AN EXTREMELY LARGE BM, THAT WAS LOOSE. PATIENT TOLERATED BED BATH WELL. PATIENTS CAREGIVER AT THE BEDSIDE AND ASSISTED WITH PATIENT CARE. PATIENTS COCYX HAS REDDENED AREA THAT IS BLANCHABLE. BARRIER CREAM IS APPLIED. PATIENTS EVENING MEDICATIONS GIVEN PER ORDER. PATIENT IS RESTLESS IN BED. PATIENT GIVEN PRN ANXIETY MEDICATION PER ORDER PER CAREGIVER REQUESTS. PATIENT ALSO SHOWS NON-VERBAL CUES OF BEING IN PAIN. PATIENT GIVEN PRN TYLENOL PER ORDER. PATIENTS ABD IS FIRM AND SLIGHTLY DISTENDED. PATIENTS CAREGIVER DENIES ANY FURTHER NEEDS. CALL LIGHT IN REACH.
--- NOTE | 2017-08-07 23:17 | NUR ---
PATIENT GIVEN SCHEDULED LACTULOSE. PATIENT TOLERATED MED PASS WELL. PATIENTS CAREGIVER IS ASLEEP ON THE COUCH. NO FURTHER NEEDS. NOTED. CALL LIGHTIN REACH.
--- NOTE | 2017-08-08 01:36 | NUR ---
PATIENT GIVEN SCHEDULED LACTULOSE. PATIENTS VITALS TAKEN AND RECORDED. PATIENTS CAREGEIVER DENIES ANY FURTHER NEEDS. CALL LIGHT IN REACH.
--- NOTE | 2017-08-08 03:35 | NUR ---
PATIENTS SCHEDULED LACTULOSE GICEN PER ORDER. PATIENT HAD A MEDIUM SIZED BM THAT WAS LOOSE IN NATURE BUT THICKER THAN THE LAST BM. PATIENT TOLERATRED ACTIVITY WELL. PATIENT DID BECOME ANXIOUS AFTER CARE. PATIENT GIVEN PRN ATIVAN PER CAREGIVERS REQUEST. NO FURTHER NEEDS AT THIS TIME. CALL LIGHT IN REACH.
--- NOTE | 2017-08-08 04:28 | NUR ---
PATIENT RESTED ON AND OFF THROUGHOUT THE SHIFT. PATIENT IS ON A SOFT DIET. PATIENT IS A 2PA WHEN OUT OF BED. PATIENT HAS A FAYE IN PLACE. PATIENT HAS A CAREGIVER AT THE BEDSIDE. PATIENT HAS A REDDENED AREA ON HIS COCYX, BARRIER CREAM APPLIED. PATIENT HAD X2 LOOSE BMS. PATIENT RECEIVED NEW IV. PATIENT RECEIVED X2 PRN ATIVAN. PATIENT RECEIVED X2 PRN TYLENOL FOR PAIN. PATIENT IS NON VERBAL AT TIMES. PATIENT HAS FAYE IN PLACE AND URINE OUTPUT IS QS.
--- NOTE | 2017-08-08 05:32 | NUR ---
PT'S VITAL SIGNS WERE TAKEN AND DOCUMENTED. FAYE WAS EMPTIED AND DOCUMENTED. PT'S SHEETS AND GOWN WERE CHANGED DUE TO PT SWEATING.
--- NOTE | 2017-08-08 05:40 | NUR ---
PATIENT GIVEN SCHEDULED DOSE OF LACTULOSE. PATIENT TOLERATED TAKING MEDICATION WELL. PATIENTS VITALS TAKEN AND RECORDED. PATIENTS MORTGAGE OR LOAN UNDERWRITER REMAINS AT THE BEDSIDE. PATIENT DOES NOT SHOW ANY NON VERBAL SIGNS OF PAIN. NO FURTHER NEEDS NOTED. CALL LIGHT IN REACH.
--- NOTE | 2017-08-08 07:33 | NUR ---
RECIEVED REPORT FROM DESULFURIZER MACHINE NURSE. PATIENT RESTING IN BED. CAREGIVER AT BEDSIDE. IVF INFUSING IN R ARM. CAREGIVER DENIES NEEDS. CALL LIGHT IN REACH.
--- NOTE | 2017-08-08 08:09 | NUR ---
PATIENT RESTING IN BED. GRIMACING FREQUENTLY. CAREGIVER STATES PATIENT IS VERY UNCOMFORTABLE. WHEN I ASKED THE PATIENT IF HE HAD ANY PAIN, I DID NOT GET A RESPONSE. TYLENOL AND ATIVAN ADMIISTERED. PATIENT'S ABDOMEN FIRM, BOWEL SOUNDS ACTIVE, PASSING FLATUS. RN FROM LAST NIGHT STATES THAT HE HAD 2 LOOSE BMS LAST NIGHT. SOAP SUDS ENEMA TO BE GIVEN ONCE ATIVAN HAS TAKEN EFFECT. BED ALARM IN PLACE. CALL LIGHT IN REACH.
--- NOTE | 2017-08-08 08:38 | NUR ---
WASHED PATIENTS HANDS AND FACE ORAL CARE DONE. CAREGIVER IN ROOM. NO OTHER NEEDS AT THIS TIME.
--- NOTE | 2017-08-08 08:57 | NUR ---
BED BATH COMPLETE. FAYE CATH CARE DONE. ORAL CARE DONE. CAREGIVER IN ROOM ORDERING PATIENT BREAKFAST.
--- NOTE | 2017-08-08 09:16 | NUR ---
PATIENT RESTING IN BED. CAREGIVER AT BEDSIDE. IV PUMP CONSTANTLY BEEPING. TURNED PUMP OFF, PATIENT DRINKING PLETNY OF FLUIDS. WILL SPEAK WITH MD. BREAKFAST ORDERED.
--- NOTE | 2017-08-08 10:29 | NUR ---
PATIENT ATE 100% OF BREAKFAST. AFTER BREAKFAST PATIENTS ABDOMEN BECAME MUCH MORE FIRM. PATIENT ALSO DIAPHORETIC AND APPEARS TO BE EXTREMELY UNCOMFORTABLE. CALLED MD, OBTAINED ORDER. ADMINISTERED PAIN MEDICATION PER [facility] SUPPOSITORY. WAITING FOR PORTABLE XRAY. I TOLD CAREGIVER TO KEEP PT NPO FOR NOW UNTIL HE STARTS TO FEEL BETTER. PATIENTS IVF INFUSING W/O DIFFICULTY FOR NOW. CALL LIGHT IN REACH.
--- NOTE | 2017-08-08 10:50 | NUR ---
PATIENT STILL DIAPHORETIC, GRIMACING CONSTANTLY. ADMINISTERED ANOTHER DOSE OF MORPHINE. PATIENT ALSO HAS BEEN HICCUPING/BURPING--APPEARS HE MIGHT VOMIT. ADMINISTERED ZOFRAN PER OCT. MED STUDENT IN TO SEE PATIENT AND CAREGIVER. CALLED XRAY A REMINDER.
--- NOTE | 2017-08-08 12:30 | NUR ---
400CC OF SOAP SUDS ENEMA ADMINISTERED PER RECTUM. THAT WAS ALL PATIENT COULD TOLERATE. PATIENT INCONT OF STOOL. PUDDING CONSISTENCY.
--- NOTE | 2017-08-08 13:00 | NUR ---
REVIEWED XRAY REPORT. FAYE CATH NOT PLACED IN CORRECT POSITION. DEFLATED BALLOON, ADVANCED CATHETER, PULLED BACK AND ADVANCED AGAIN. PATIENT STARTED DRIPPING BLOOD FROM AROUND MEATUS. REMOVED CATHETER, CALLED .
--- NOTE | 2017-08-08 13:10 | NUR ---
PATIENT'S MEATUS NO LONGER EXPELLING BRIGHT RED BLOOD.
--- NOTE | 2017-08-08 13:31 | NUR ---
DR. CASILLAS IN TO EXAMINE PATIENT.
--- NOTE | 2017-08-08 14:15 | NUR ---
PATIENT CHANGED FOR EPISODE OF STOOL INCONT. BARRIER CREAM APPLIED. NEW BRIEF IN PLACE.
--- NOTE | 2017-08-08 15:09 | NUR ---
CHANGED PATIENT FOR EPISODE OF STOOL INCONT. PATIENT ALSO HAD MORE BLEEDING OUT OF MEATUS. BOLUS HAS STOPPED, IVF INFUSING AGAIN AT 125CC/HR. REMOVED DRESSING ON R FOOT. PT'S SECOND TOE RECENTLY AMPUTATED, NO S/S OF INFECTION NOTED AT THIS TIME. CALLED MD TO ASSESS.
--- NOTE | 2017-08-08 15:45 | NUR ---
PATIENT CHANGED FOR EPISODE OF STOOL INCONT. CLEAN PATIENT AND USED BARRIER WIPES, PT'S COCCYX IS SLIGHTLY REDDENED. ABDOMEN STILL FIRM, BS HYPERACTIVE, PATIENT HAS BEEN PASSING FLATUS. LUNGS CLEAR, HR REGULAR. MD IN TO SEE PATIENT'S RECENTLY AMPUTATED TOE. REMOVED DRESSING, MD ASSESSED, CLEANSED WITH NORAML SALINE AND PLACED DRY GUAZE OVER SITE, WRAPPED COBAN AROUND FOOT TO KEEP GUAZE IN PLACE. PATIENT APPEARS TO BE UNCOMFORTABLE. ADMINISTERED MORPHINE 1MG. CALL RUANO IN REACH.
--- NOTE | 2017-08-08 16:22 | NUR ---
PER RN, PATIENT HAD EPISODE OF VOMITING. SHE STATES IT WAS A LARGE AMOUNT OF THIN BROWN EMESIS. BED LINENS CHANGED, GOWN CHANGED, PATIENT WASHED.
--- NOTE | 2017-08-08 17:15 | NUR ---
BLADDER SCANNED PATIENT TO FIND OVER 491CC IN BLADDER. NOTIFIED MD OF BLADDER SCAN AND EMESIS. PATIENT STATES HE HAS TO "PEE." ASSISTED PATIENT ON BSC WITH CAREGIVER. CALL LIGHT IN REACH.
--- NOTE | 2017-08-08 18:02 | NUR ---
ASSISTED PATIENT OFF BSC AND BACK TO BED. PATIENT HAD A MEDIUM STOOL, BUT STILL NO URINE. MEAL TRAY REMOVED, PATIENT DID NOT EAT DINNER. CALL LIGHT IN REACH.
--- NOTE | 2017-08-08 18:08 | NUR ---
PATIENT'S I AND O COMPLETE AND VITALS TAKEN AT THIS TIME
--- NOTE | 2017-08-08 19:00 | NUR ---
ASSISTING DR. CASILLAS WITH FAYE CATH PLACEMENT. PATIENT SLEEPING THROUGH INTERVENTION.
--- NOTE | 2017-08-08 19:53 | NUR ---
PATIENT IN BED ASLEEP. WHITEBOARD UPDATED, GREEN SHEET SWITCHED OUT. ROOM TIDIED. PATIENT DOES NOT NEED ANYTHING AT THIS TIME.
--- NOTE | 2017-08-08 20:13 | NUR ---
CLARIFIED ENEMA AND SUPPOSITORY ORDERS WITH DR CASILLAS. CHANGE ENEMA TO Q4 HOURS AND GIVE SUPPOSITORY 2 HOURS AFTER ENEMA PER DR CASILLAS.
--- NOTE | 2017-08-08 21:55 | NUR ---
PT HAD XLARGE LOOSE BM. CLEANED PT UP AND CHANGED BEDDING. PT DROWSY AT THIS TIME. CAREGIVER ON SOFA, ALSO APPEARS TO BE SLEEPING. LIGHTS TURNED OFF.
--- NOTE | 2017-08-08 21:56 | NUR ---
PT LAYING IN BED, APPEARED TO BE SLEEPING WHEN ENTERING ROOM. CAREGIVER ON SOFA ALSO APPEARED ASLEEP. PT WOKE EASILY AND TOOK HIS MEDS WELL. PT INCONTINENT OF EXTRA LARGE AMOUNT OF LOOSE STOOL. CLEANED PT UP AND GAVE NEW GOWN AND ALL NEW BEDDING, ATTENDS ALSO IN PLACE. CAREGIVER VERY ATTENTIVE. PT ANXIOUS AFTER ENEMA, GAVE ATIVAN FOR AGITATION. NEW BAG OF FLUIDS AND ALL NEW TUBING DUE TO STOOL GETTING ON IV TUBING. PT APPEARED TO RELAX AFTER ATIVAN GIVEN. CAREGIVEN WILL CALL IF PT NEEDS ANYTHING.
--- NOTE | 2017-08-09 00:52 | NUR ---
patient incontinent of stool. changed depend, john and draw sheet. performed clyde care and catheter care. rolled patient to left side.
--- NOTE | 2017-08-09 03:32 | NUR ---
PT HAD ANOTHER XLARGE PUDDING CONSISTANTCY BM. CLEANED PT UP AND CHANGED BEDDING. PT APPEARS AGITATED AT THIS TIME, GAVE ATIVAN FOR AGITATION. BOWEL TONES ARE HYPERACTIVE, AUDIBLE TO RN WHILE STANDING IN ROOM, VERY LOUD BOWEL SOUNDS. PASSING MASSIVE AMOUNTS OF FLATUS.
--- NOTE | 2017-08-09 05:18 | NUR ---
PT HAS HAD MULTIPLE XLARGE LOOSE BM'S OVER NIGHT. SLEPT ON AND OFF THROUGHOUT SHIFT. GAVE ATIVAN FOR AGITATION X2. CAREGIVER IN ROOM, VERY ATTENTIVE TO PT. ENEMA'S Q4 HOURS.
--- NOTE | 2017-08-09 07:27 | NUR ---
RECIEVED BEDSIDE REPORT FROM CHILD CARE WORKER NURSE. PATIENT SLEEPING, EVIDENCE BY SNORING. IVF INFUSING W/O DIFFICULTY. CAREGIVER AT BEDSIDE. CAREGIVER DENIES NEEDS AT THIS TIME. CALL LIGHT IN REACH.
--- NOTE | 2017-08-09 08:30 | NUR ---
PATIENT SLEEPING. CAREGIVER IN ROOM. CALL LIGHT IN REACH.
--- NOTE | 2017-08-09 09:00 | NUR ---
CHANGED PATIENT FOR EPISODE OF STOOL INCONTINENCE. BRIEF CHANGED. CHUCKS CHANGED. WASHED PATIENT. FAYE CARE COMPLETED.
--- NOTE | 2017-08-09 09:43 | NUR ---
VS OBTAINED. NOTIFIED MD OF PATIENT CONDITION (ELEVATED HR AND TEMP, DIAPHORETIC, ANXIOUS). ATIVAN ADMINISTERED. CAREGIVER AT BEDSIDE. OBTAINED ORDERS FROM MD.
--- NOTE | 2017-08-09 10:21 | NUR ---
PATIENT IS MUCH MORE RELAXED AFTER ATIVAN. OIL RETENTION ENEMA GIVEN WITHOUT DIFFICULTY. LR BOLUS STARTED. TYLENOL ADMINISTERED FOR FEVER OF 100.7 F. CATHETER EMPITED, URINE CULTURE SENT. LAB IN TO DRAW BLOOD CULTURES. DIFFICULTY AUSCULTATING LUNGS, PATIENT UNABLE TO FOLLOW DIRECTIONS WELL AT TIMES. HR TACHY (MD AWARE), NO EDEMA. DRESSING TO R SECOND TOE C/D/I. PEDAL PULSES PALPATED. CAREGIVER DENIES NEEDS AT THIS TIME. ENCOURAGED SIPS OF WATER. PLAN FOR MEAL AT LUNCH, WILL PREMEDICATE WITH ANTIEMETIC.
--- NOTE | 2017-08-09 11:04 | NUR ---
BOLUS FINISHED INFUSING. DIETARY IN TO SEE PATIENT. RESTARTED CONTINUOUS FLUIDS. PATIENT SLEEPING EVIDENCE BY SNORING. CALL LIGHT IN REACH.
--- NOTE | 2017-08-09 11:49 | NUR ---
CHANGED PATIENT FOR EPISODE OF STOOL INCONT. USED BARRIER WIPES TO CLEAN [place] AREA. ALSO APPLIED BARRIER CREAM. NEW BRIEF PLACED. NEW GOWN APPLIED. ADMINISTERED ANTIEMETIC BEFORE LUNCH. LUNCH ORDERED. PATIENT SITTING UP RIGHT IN BED. CALL LIGHT IN REACH. CAREGIVER AT BEDSIDE.
--- NOTE | 2017-08-09 12:00 | NUR ---
PATIENT SLEEPING. TALKED WITH ASPHALT ROLLER PERSON OF THE [facility], REGINALDO. REGINALDO EXPLAINED TO ME PATIENT'S EATING REGIMEN ALONG WITH BOWEL MOVEMENTS/ISSUES. PATIENT DOES NOT LIKE TO HAVE BM'S BECAUSE THEY ARE PAINFUL. THEY DID HAVE A GOOD REGIMEN GOING SINCE MAY WHEN PATIENT WAS PUT ON A NEW MEDICATION. PATIENT HAS HAD ISSUES WITH ONE OF HIS TOES WHICH ENDED UP BEING AMPUTATED, SO HE HASN'T BEEN ACTIVE AND SITTING ON THE TOILET HAS BEEN DIFFICULT. AFTER DISCUSSING PATIENT'S USUAL DIET INTAKE, I OFFERED A FEW SUGGESTIONS THEY COULD TRY TO PROVIDE VARIETY AND FIBER. SOME SUGGESTIONS WERE PUREED OR MASHED BERRIES, SWEET POTATOES, MORE SOFT BEANS THAT CAN BE MASHED, AND SWITCHING FROM NO FIBER CRACKERS TO WHOLE WHEAT CRACKERS TO EAT WITH HIS SOUP. WE ALSO DISCUSSED PROTEIN FOR THE PATIENT. HE CAN EAT GROUND TURKEY, GROUND BEEF, AND CANNED CHICKEN, BUT THEY ALL HAVE TO BE MASHED AND MIXED WITH MASHED POTATOES OR OTHER SOFT FOOD. PATIENT DOES NOT CHEW, HE JUST SWALLOWS HIS FOOD. HANDOUT PROVIDED ON HIGER-FIBER DIET THAT REGINALDO CAN TAKE AND SHARE WITH HIS . HE THINKS HE WILL BUY SOME PROTEIN POWDER TO MIX IN PATIENT'S OATMEAL AT HOME. PATIENT ALREADY TAKES MIRALAX, SENOKOT, AND METAMUCIL. HE DRINKS 4 OZ. PRUNE JUICE AT LUNCH. THEY MIX AN ENSURE (NOT SURE IF ITS ORIGINAL OR PLUS) WITH 4 OZ OF MILK AND ADD EITHER STRAWBERRY OR CHOCOLATE QUICK TO MAKE IT "STRAWBERRY MILK." OTHERWISE PATIENT WON'T DRINK IT. REGINALDO WAS OPEN TO THE SUGGESTIONS PROVIDED. HE OR HIS CAN CALL ME IF THEY HAVE ANY QUESTIONS.
--- NOTE | 2017-08-09 13:30 | NUR ---
PATIENT SLEEPING. CAREGIVER AT BEDSIDE. PATIENT HAD SMEAR OF STOOL. PERICARE PERFORMED, APPLIED BARRIER CREAM. CAREGIVER DENIES NEEDS. CALL LIGHT IN REACH.
--- NOTE | 2017-08-09 14:45 | NUR ---
PATIENT RESTING IN BED, CHANGED PATIENT FOR EPISODE OF STOOL INCONT. ENEMA ADMINISTERED. CAREGIVER REQUESTS I GIVE HIM SOME TYLENOL. PATIENT GRIMACES AT TIMES. UNABLE TO SUBJECTIVELY ASSESS WHETHER OR NOT PATIENT IS EXPERIENCING PAIN DUE TO MRDD. PATIENT IS MOSTLY NON-VERBAL HOWEVER HE IS MORE TALKATIVE THIS AFTERNOON. LUNGS CLEAR, HR REGULAR, BS HYPERACTIVE. DRESSING TO R SECOND TOE C/D/I WITH GUAZE AND COBAN. PATIENT AND CAREGIVER DENY NEEDS AT THIS TIME. CALL LIGHT IN REACH.
--- NOTE | 2017-08-09 15:45 | NUR ---
PATIENT HAD ANOTHER EPISODE OF STOOL INCONT. CLEANED WITH BARRIER WIPES. STOOL APPEARS TO BE MORE MUCOUSY AND HAS A STRONG ODOR. NOTIFIED MD. CAREGIVER AT BEDSIDE. CALL RUANO IN REACH.
--- NOTE | 2017-08-09 17:45 | NUR ---
NURSE COMPANION OBTAINED VS. HEART RATE AND BLOOD PRESSURE ELEVATED. NOTIFIED MD. PATIENT STARTED BACK ON PROPANOLOL. BED BATH PERFORMED WITH CAREGIVER. PATIENT WASHED WITH WARM SOAPY WATER. GOWN CHANGED, BRIEF CHANGED. PATIENT TRANSFERRED TO [facility] WITH HELP OF CAREGIVER, NO STOOL AT THIS TIME. BED LINEN CHANGED. ENEMA ADMINISTERED. BED ALARM ON. CALL LIGHT IN REACH.
--- NOTE | 2017-08-09 19:25 | NUR ---
BEDSIDE REPORT RECEIVED FROM GM ROJO. PT SLEEPING, EYES CLOSED, CAREGIVER AT BEDSIDE. D5LR INFUSING WNL AT 125 ML/HR.
--- NOTE | 2017-08-09 20:27 | NUR ---
CLEANED PT W BOX TOE STITCHER NOVEMBER AND CAREGIVER REGINALDO ASSIST. PT INCONTINENT OF STOOL. PT ASLEEP, EYES CLOSED WHILE CLEANING. PT ASSESSMENT COMPLETE AT THIS TIME. BOWEL TONES ACTIVE X 4, ABDOMEN SOFT. PT DOES NOT COMMUNICATE PAIN, ADMINISTERED 1 ACETAMINOPHEN PO FOR PT TOE. TOE CLEAN, GAUZE OVER TOE, NO DISCHARGE NOTED. LUNGS CLEAR THROUGHOUT ALL LOBES. IVF INFUSING WNL. PT AWAKENS WHEN SAT UP TO TAKE ORAL MEDICATIONS. CAREGIVER AT BEDSIDE. WILL CONTINUE TO MONITOR.
--- NOTE | 2017-08-09 21:54 | NUR ---
PHONE CALL TO DR. CASILLAS, UPDATED THAT PT BP 95/[address] CASILLAS INSTRUCTED TO RETAKE BLOOD PRESSURE IN ONE HOUR.
--- NOTE | 2017-08-09 22:17 | NUR ---
VITALS AND I&OS DONE. I HELPED HIS RN CHANGE HIS ATTEND OF A BOWEL MOVEMENT. CALL LIGHT AND BEDSIDE TABLE IS WITHIN REACH. BED ALARM IS ON. CAREGIVER IS IN THE CHAIR NEXT TO PT WHEN I LEFT.
--- NOTE | 2017-08-09 23:11 | NUR ---
IN PT ROOM, ATTENDS CHANGED, SMALL BM, FLEET ENEMA ADMINISTERED, RN GEE ASSISTED, PT SARAH WELL. BP REASSESSED, 98/50 (60), HR 82, PT AFEBRILE. PT DROWSY, BACK TO SLEEP, IVF INFUSING. FOLDED DRAW SHEET BETWEEN PTS KNEES REDNESS NOTED. PT CAREGIVER IN ROOM, INSTRUCTED TO CALL IF ANY REQUESTS, IVF INFUSING.
--- NOTE | 2017-08-09 23:16 | NUR ---
CALLED DR. CASILLAS, UPDATED ON PT BP 98/50 MAP 60, HR 82, URINE OUTPUT QUANITY SUFFICIENT. ORDER TO CONTINUE TO MONITOR.
--- NOTE | 2017-08-10 00:30 | NUR ---
PT INCONTINENT OF STOOL, CHANGED ATTENDS, REPOSITIONED PT WITH MAGNET PLACER KIMBER ASSIST. PT HAD LARGE SOFT STOOL, BROWN IN COLOR. CHUX CHANGED UNDER PT. PT CAREGIVER AWAKENS IN ROOM. IVF INFUSING, PT BACK TO SLEEP, EYES CLOSED. PT COOPERATIVE. WILL CONTINUE TO MONITOR.
--- NOTE | 2017-08-10 00:41 | NUR ---
WENT INTO PT ROOM TO CHANGE HIS ATTENDS WITH RN. HE HAD A BIG BOWEL MOVEMENT. GOT HIM CLEANED UP AND NEW ATTENDS PUT ON. REPOSITIONED HIM IN BED. CALL LIGHT AND BEDSIDE TABLE WITHIN REACH. PT WENT BACK TO SLEEP WE WERE LEAVING THE ROOM.
--- NOTE | 2017-08-10 02:13 | NUR ---
PT SLEEPING, LIGHTS OFF IN ROOM, IVF INFUSING. PT CHECKED FOR STOOL, NO STOOL NOTED BY CLINICAL RN MANAGER NOVEMBER. WILL CONTINUE TO MONITOR. CAREGIVER ASLEEP ON COUCH.
--- NOTE | 2017-08-10 02:41 | NUR ---
PT ASSESSMENT COMPLETE, PT AWAKENS TO RN VOICE, RISES UP IN BED, REACHING OUT AT RN, MUMBLING INCOMPREHENSIBLE, ORIENTED PT TO CAREGIVER REGINALDO IN ROOM, ADMINISTERED 0.5 MG ATIVAN FOR AGITATION. PTS LUNGS SOUND CLEAR THROUGHOUT ALL LOBES, HR REGULAR RHYTHM. BOWEL TONES ACTIVE X 4, ABDOMEN SOFT. PT ATTENDS DRY, NO STOOL NOTED. PT REPOSITIONED SELF TO LEFT SIDE PER CAREGIVER INSTRUCTION. CALL LIGHT NEAR CAREGIVER, NO ADDITIONAL REQUESTS AT THIS TIME.
--- NOTE | 2017-08-10 04:26 | NUR ---
CHECKED ON PT, PT SLEEPING, AWAKENS TO VOICE, TOUCH. CHECKED PTS ATTENDS, NO STOOL NOTED. FAYE DRAINING, IVF INFUSING WNL. CAREGIVER IN ROOM, NO REQUESTS AT THIS TIME. PT STATES "BEDDY BYE TIME", FACING CAREGIVER.
--- NOTE | 2017-08-10 04:51 | NUR ---
PT HAS HAD MULTIPLE INCONTINENT STOOLS IN ATTENDS, RECEIVED LACTULOSE AND FLEET ENEMA ORDERED, BARRIER CREAM APPLIED TO REDDENED AREA ON BEHIND. PT COOPERATIVE, RECEIVED ATIVAN X 1 FOR AGITATION, TYLENOL X 1 FOR PAIN CONTROL. FAYE CATHETER DRAINING, IVF INFUSING WNL THROUGHOUT SHIFT. CAREGIVER IN ROOM THROUGHOUT SHIFT.
--- NOTE | 2017-08-10 06:14 | NUR ---
IN PT ROOM, CHECKED ATTENDS, DRY AT THIS TIME, EMPTIED PT'S FAYE 1125 MLS YELLOW URINE OUT. IVF INFUSING WNL. BP 110/67 (74), HR 75, 97% SPO2 ON ROOM AIR. CAREGIVER IN ROOM. NO REQUESTS AT THIS TIME.
--- NOTE | 2017-08-10 06:22 | NUR ---
ASSISTED X RAY TECHNICIANS TO POSITION PT FOR XRAY. PT SARAH WELL, FOLLOWED COMMANDS TO TURN. CAREGIVER IN PT ROOM.
--- NOTE | 2017-08-10 08:00 | NUR ---
patient sat up in bed for breakfast. ordered oatmeal, apple sauce, and apple juice. paient tolerated 100 percent. taking medication well. vitals taken. patient is currently with clean attends. no bm at this time. daniel putting out clear yellow urine. qs. lungs clear but diminished at the bases. working on deep breathing with patient. following commands at times. answering questions for health care analyst not nursing staff. will respond with yes and no answers to caregiver.
--- NOTE | 2017-08-10 09:49 | NUR ---
checked on patient. patient currently resting with hob down. children's zoo caretaker in room. rr even and unlabored. caregiver reports that he has been looking comfortable since breakfast. asked if I would feel is abd since last assessment. patient jumped when i went to take him for another assesment. patient abd reminds soft. patient has small amount of sweat on forehead. not tense or clentching at this time. will cont to monitor.
--- NOTE | 2017-08-10 10:00 | NUR ---
SPOKE WITH PATIENTS CAREGIVER, REGINALDO IN ROOM. WE DISCUSSED POSSIBLE DISCHARGE TODAY BACK TO HIS [facility]. HE STATES HE HAS ALL NECESSARY EQUIPMENT. WE DISCUSSED THAT WHEN THEY GET DISCHARGE INSTRUCTIONS, TO LET STAFF KNOW IF HE HAS ANY QUESTIONS, CONCERNS OR NEEDS FOR PATIENT TO RETURN TO HIS CARE. HE STATES UNDERSTANDING.
--- NOTE | 2017-08-10 10:57 | NUR ---
personal care attendant stepped out. plan to do bed bath and move to chair at 1115. patient remains with clean attend on his l side. patient has no grimance on face. bed alarm in place while personal care attendant is out of room.
--- NOTE | 2017-08-10 11:37 | NUR ---
total bed bath complete. dressing change complete on r 2nd toe. patients amputation looks good. stitches intact. no redness. new gauze and coband placed. patient assited to the chair with a total assist with resident care manager rn. patient sitting up for lunch. requesting tylenol. patient smiling for caregiver, but fearful for transfer. relaxed now.
--- NOTE | 2017-08-10 11:47 | NUR ---
CAREGIVER AND I GAVE HIM A BED BATH AND SHAMPOOED HIS HAIR. CHANGED BED LINENS. NURSE AND CAREGIVER GOT HIM IN THE CHAIR. NOW CAREGIVER IS HELPING HIM EAT.
--- NOTE | 2017-08-10 12:27 | NUR ---
patient remains up in chair. tolerating well. patient tolerated 75 percent of lunch. post acute care registered nurse in the room to assist with feeding. daniel remains intact putting out clear yellow urine. abd remains soft. patient smiling with caregiver and watching tv.
--- NOTE | 2017-08-10 12:35 | NUR ---
CAREGIVER AND I TRANSFERED PATIENT FROM CHAIR BACK TO HIS BED. HE DID GOOD. NOW HE IS SLEEPING ON HIS LEFT SIDE. BED ALARM CARTRIDGE BELT PUNCHER LIGHT RIGHT NEXT TO HIM.
--- NOTE | 2017-08-10 12:38 | NUR ---
patient assisted back to bed with a total lift from caregiver. patient tolerated transfer better. assisted to bed. on l side. patient is not tense. attends remains clean. no new stool.
--- NOTE | 2017-08-10 13:02 | NUR ---
rounded with DR. CASILLAS in room. plan to discharge this afternoon. x-ray from admit and today shown to caregiver. improvement with bowels. daniel to remain in place until sun. patient will go to ds for removal. new regiment of lactalose discussed with caregiver. plan to have pharmacy in room to go over medications again.
[2017-08-10] MEDS ORDERED: LACTULOSE20 GM/30 M PO (13:03)
[2017-08-10] MEDS ORDERED: METAMUCIL FIBE3.4 GM PO (13:04)
--- NOTE | 2017-08-10 14:11 | NUR ---
cath care education given to animal daycare provider. discussed how to clean tubing. stat lock. and how to switch to leg bag. plan to d/c daniel on sunday wither at doctors office or outpatient. animal daycare provider tolerated all information well. changed patient. new attends in place. no bm at this time.
--- NOTE | 2017-08-10 14:45 | NUR ---
discharge paper work given. care given extensive information on new medication. lactolose instructions given. pharmacy in room to given information. assisted to own clothing. daniel cath care/ demonstration given to caregiver.
--- NOTE | 2017-08-10 15:00 | NUR ---
refused flu shot due to already having before hospital stay
[2017-08-14] MEDS ORDERED: BACTRIM DS TAB1 EACH PO (00:14)
== END 2017-08-10 15:05 | disposition home or self-care (01) ==
LOC: ED 10:17 → MS 10:19
PROVIDERS: ADMIT Internal Medicine
DX: K59.09 Other constipation (principal); F79 Unspecified intellectual disabilities; F20.9 Schizophrenia, unspecified; R31.9 Hematuria, unspecified; S37.30XA Unspecified injury of urethra, initial encounter; T83.83XA Hemorrhage due to genitourinary prosthetic devices, implants and grafts, initial encounter; Y84.6 Urinary catheterization as the cause of abnormal reaction of the patient, or of later complication, without mention of misadventure at the time of the procedure; Y92.239 Unspecified place in hospital as the place of occurrence of the external cause; Z89.421 Acquired absence of other right toe(s); Z86.59 Personal history of other mental and behavioral disorders; Z79.2 Long term (current) use of antibiotics; Z79.899 Other long term (current) drug therapy
CPT/HCPCS: 51702; 51798; 74000; 74177; 80053; 80178; 81001; 83735; 85025; 96361; 96372; 96374; 96375; 96376; 99284; G0378; J1170; J1650; J2060; J2270; J2405; J2765; J7030; J7120; Q9967

== ENCOUNTER 2017-08-13 08:31 | Emergency (ER) | payer OTHER ==
[~2017-08-13] VITALS: Ht 162.6 cm; Wt 55.8 kg
[~2017-08-13 08:31] MED LIST changes: +CITRATE OF MAG296 ML PO; +INDERAL LA60 MG PO; +LACTULOSE20 GM/30 M PO; +TYLENOL325 MG PO
[2017-08-13] MEDS ORDERED: DIPHENHYDRAMINE25 MG PO (11:42)
[2017-08-13] MEDS ORDERED: METOCLOPRAMIDE10 MG PO (11:42)
[2017-08-13] MEDS ORDERED: ERYTHROMYCIN250 M1 PO (11:48)
[2017-08-14] MEDS ORDERED: BACTRIM DS TAB1 EACH PO (00:14)
== END 2017-08-13 12:23 | disposition home or self-care (01) ==
LOC: ED 08:31
DX: K59.09 Other constipation (principal); N39.490 Overflow incontinence; F20.9 Schizophrenia, unspecified; Z79.899 Other long term (current) drug therapy
CPT/HCPCS: 36415; 74022; 80053; 81001; 83605; 83690; 85025; 99283

== ENCOUNTER 2017-08-20 15:42 | Observation (INO) | payer OTHER ==
[~2017-08-20] VITALS: Ht 162.6 cm; Wt 51.7 kg
[~2017-08-20 15:42] MED LIST changes: +DIPHENHYDRAMINE25 MG PO; +ERYTHROMYCIN250 M1 PO; +METOCLOPRAMIDE10 MG PO
--- NOTE | 2017-08-20 23:40 | NUR ---
RECEIVED REPORT FROM ED RN CHICO.
--- NOTE | 2017-08-20 23:49 | NUR ---
PATIENT TO FLOOR FROM ER VIA STRETCHER. PATIENT TRANSFERED TO BED WITH EASE.
--- NOTE | 2017-08-20 23:55 | NUR ---
ADMISSION DONE WELL ASSESSMENT. VITALS TAKEN. PATIENT APPEARS TO BEUNCOMFORTABLE AND EMOTIONAL. UNABLE TO ASSESS PATIENT'S NEEDS DUE TO BEING NON-VERBAL. CAREGIVER AT BEDSIDE WAS ABLE TO GIVE INFORMATION AND STATES "HE GETS UPSET WHEN THERE ARE A LOT OF PEOPLE HE DOESN'T KNOW AROUND." PATIENT'S ATTENDS WERE CHANGED DUE TO HAVE MEDIUM BM. [place] CARE DONE. REPOSITIONED PATIENT ON SIDE FOR COMFORT. ORIENTED CAREGIVER AND PATIENT TO ROOM, SHOWED HOW TO USE CALL LIGHT.
--- NOTE | 2017-08-21 00:25 | NUR ---
GM FENTON AND I CHANGED/CLEANED UP PATIENT HAVING BOWEL MOVEMENT WITH THE HELP OF PATIENT'S COMPANY.
--- NOTE | 2017-08-21 01:00 | NUR ---
CALLED DR. CASILLAS REGARDING PATIENT'S EVENING MEDICATIONS. CAREGIVER STATED THAT PATIENT DID NOT HAVE HIS EVENING DOSES OF LITHIUM, OLANZAPINE, PAROXETINE, OR PROPRANOLOL. DR. CASILLAS ORDERED FOR OLANZAPINE TO BE GIVEN TONIGHT, OTHER MEDICATIONS WILL BE RESUMED TOMORROW. ALSO RECEIVED 0.5 MG IV ATIVAN PRN Q6H ORDER FOR AGGITATION.
--- NOTE | 2017-08-21 01:18 | NUR ---
PATIENT RESTING IN BED COMFORTABLY. NO GRIMACE ON FACE, CAREGIVER STATES "HE LOOKS COMFORTABLE." ATTENDS CHANGED DUE TO PATIENT HAVING LARGE BM WITH FORMED BROWN STOOL. [place] CARE DONE, BARRIER CREAM APPLIED. MEDICATIONS GIVEN PER EMAR, PRN ATIVAN GIVEN AFTER PATIENT WAS CHANGED DUE TO BECOMING UPSET AGGITATED. CALL LIGHT WITHIN REACH.
--- NOTE | 2017-08-21 04:30 | NUR ---
ATTENDS CHANGE AND LINEN CHANGE DUE TO PATIENT'S LARGE INCONTINENT VOID OF URINE. ASSISTED BY MELI ROJO. PATIENT RESTING COMFORTABLY, TOLERATED WELL. WHEN GIVEN MEDICATION, PATIENT WAS DIFFICULT TO AROUSE. CAREGIVER STATES "THIS IS NORMAL FOR HIM. WE HAVE A HARD TIME WAKING HIM UP ALL THE TIME." VITALS TAKEN, WHICH WERE STABLE. PATIENT NOW RESTING ON SIDE AGAIN, BREATHING IS EVEN AND UNLABORED, RESPIRATORY RATE IS 14. CALL LIGHT WITHIN REACH, CAREGIVER AT BEDSIDE.
--- NOTE | 2017-08-21 05:19 | NUR ---
PATIENT'S NIGHT HAS BEEN UNEVENTFUL. VSS, URINE OUTPUT QS. PATIENT IS MOSTLY NON-VERBAL, BUT ANSWERS "YES" AND "NO" AT TIMES, HX OF MRDD. HAS 24/ CAREGIVER. PATIENT HAD 2 LARGE BMs THIS SHIFT, ONE WITH BROWN FORMED STOOL. RECEIVING LACTULOSE Q2H. HAS IV FLUIDS INFUSING, CAREGIVER REPORTS HE IS A 1PA WITH AMBULATION. NO ACUTE CHANGES.
--- NOTE | 2017-08-21 06:34 | NUR ---
PATIENT RESTING COMFORTABLY IN BED, BREATHING IS EVEN AND UNLABORED. AWAKES EASILY TO VOICE. MEDICATION ADMINISTERED PER EMAR. CALL LIGHT WITHIN REACH.
--- NOTE | 2017-08-21 08:45 | NUR ---
patient in bed resting. caregiver states they have no needs at this time.
--- NOTE | 2017-08-21 09:02 | NUR ---
IN ROOM TO SEE PATIENT.
--- NOTE | 2017-08-21 09:03 | NUR ---
DR CASILLAS IN TO ASSESS PATIENT AND SPEAK WITH CAREGIVERS NOW. PT LYING ON RIGHT SIDE FLAT IN BED. AT BEDSIDE REPORT PT WAS PASSING LOTS OF FLATULENCE. APPEARS COMFORTABLE AT THIS TIME. SNORING.
--- NOTE | 2017-08-21 10:01 | NUR ---
PATIENT IS ANXIOUS AND SHAKING. NOTIFIED RN. WILL APROACH PATIENT AFTER MEDICATION CALMS HIM DOWN. CARE GIVERS IN ROOM. NO OTHER NEEDS AT THIS TIME.
--- NOTE | 2017-08-21 10:40 | NUR ---
PATIENT RESTING IN BED. BATH COMPLETE. [place] CARE DONE. CAREGIVERS AND RN IN ROOM TO SEE PATIENT. NO OTHER NEEDS AT THIS TIME.
--- NOTE | 2017-08-21 11:43 | NUR ---
MED REC COMPLETE WITH LAST DISCHARGE AND INTERVIEW WITH CAREGIVER. NEW MEDICATIONS INCLUDE ERYTHROMYCIN, DIPHENHYDRAMINE, AND METOCLOPRAMIDE. UNCLEAR IF PATIENT IS STILL TAKING BACTRIM EVEN THOUGH PATIENT WAS DIRECTED TO STOP TAKING THIS AFTER LAST DISCHARGE.
--- NOTE | 2017-08-21 12:57 | NUR ---
PATIENT WITH COPIUS LOOSE STOOL. PATIENT CLEANED, IN SHOWER, LINENS CHANGED AND PATIENT IS BACK TO BED.
--- NOTE | 2017-08-21 14:18 | NUR ---
PATIENT RESTING IN BED. CHANGED DEPENDS AND [place] CARE DONE. WORKERS' COMPENSATION CLAIMS SUPERVISOR IN ROOM FRESH ICE WATER GIVEN. NO OTHER NEEDS AT THIS TIME.
--- NOTE | 2017-08-21 16:44 | NUR ---
PT BMs ARE MUCH MORE LOOSE/WATERY THAN EARLIER IN DAY. NO FOOD CHUNKS NOTED IN STOOL. COLOR IS COPPER TONED.
--- NOTE | 2017-08-21 17:41 | NUR ---
CAREGIVER AT BEDSIDE. LACTULOSE QID. ENEMAS AND SUPPOS FOR BM REGIMEN (ONLY ONE MORE DOSE THEN STOP PER MD ORDER). FINISH IVF BAG AND THEN STOP. NS @ 100 INFUSING NOW. INCONTINENT. ATTENDS IN PLACE. REGULAR DIET/CHOPPED. SWALLOW PERCAUTIONS. 1PA. LOOSE STOOLS D/T LACTULOSE AND BOWEL CARES. PASSING LOTS OF GAS. ABD XRAY TODAY. MRDD. ROOM AIR. ABDOMEN VERY DISTENDED.
[2017-08-21] MEDS ORDERED: ZYPREXA ZYDIS20 MG PO (18:14)
[2017-08-21] MEDS ORDERED: LACTULOSE20 GM/30 M PO (18:15)
[2017-08-21] MEDS ORDERED: DULCOLAX5 MG PO (18:17)
[2017-08-21] MEDS ORDERED: MINERAL OIL EN133 ML PR (18:18)
[2017-08-21] MEDS ORDERED: BISAC-EVAC10 MG PR (18:18)
[2017-08-21] MEDS ORDERED: METAMUCIL FIBE3.4 GM PO (18:19)
[2017-08-21] MEDS ORDERED: MILK OF MA400 MG/5 M PO (18:20)
--- NOTE | 2017-08-21 18:55 | NUR ---
RECEIVED REPORT FROM RN. PATIENT RESTING COMFORTABLY IN BED, BREATHING IS EVEN AND UNLABORED. CAREGIVER AT BEDSIDE. CALL LIGHT WITHIN REACH.
--- NOTE | 2017-08-21 19:15 | NUR ---
RECEIVED REPORT FROM RN. PATIENT RESTING COMFORTABLY IN BED, BREATHING IS EVEN AND UNLABORED. APPEARS TO BE ASLEEP. CAREGIVER AT BEDSIDE. CALL LIGHT WITHIN REACH.
--- NOTE | 2017-08-21 19:18 | NUR ---
PATIENT RESTING IN BED. FRESH ICE WATER GIVEN. NO OTHER NEEDS AT THIS TIME. TRAVELING STOREKEEPER IN ROOM.
--- NOTE | 2017-08-21 20:06 | NUR ---
PATIENT RESTING COMFORTABLY IN BED. MEDICATIONS GIVEN PER EMAR. PATIENT TOLERATED SUPPOSITORY WELL, NO AGGITATION AND NO NEED FOR PRN ATIVAN. NOW RESTING ON SIDE COMFORTABLY, BREATHING IS EVEN AND UNLABORED. CAREGIVER DENIES QUESTIONS AT TIME. CALL LIGHT WITHIN REACH.
--- NOTE | 2017-08-21 23:13 | NUR ---
PATIENT RESTING COMFORTABLY IN BED, BREATHING IS EVEN AND UNLABORED. PATIENT CLEANED, ATTENDS AND LINEN CHANGED DUE TO LARGE BOWEL MOVEMENT. ENEMA GIVEN PER ORDERS FROM DR. CASILLAS. ONCE CLEANED, PATIENT WAS REPOSITIONED ON SIDE FOR COMFORT. PATIENT APPEARS COMFORTABLE, NO SIGNS OF DISCOMFORT OR AGGITATION. CAREGIVER AT BEDSIDE. CALL LIGHT WITHIN REACH.
--- NOTE | 2017-08-21 23:35 | NUR ---
GM FENTON, GM GODDARD AND I CHNGED/CLEANED UP PATIENT FROM HAVING BOWEL MOVEMENT.
--- NOTE | 2017-08-22 00:08 | NUR ---
PATIENT RESTING COMFORTABLY IN BED, BREATHING IS EVEN AND UNLABORED. CAREGIVER AT BEDSIDE, CALL LIGHT WITHIN REACH.
--- NOTE | 2017-08-22 02:17 | NUR ---
PATIENT RESTING COMFORTABLY IN BED, BREATHING IS EVEN AND UNLABORED. CAREGIVER AT BEDSIDE. CALL LIGHT WITHIN REACH.
--- NOTE | 2017-08-22 04:00 | NUR ---
PATIENT'S ATTENDS CHANGED, LARGE URINARY VOID AND LOOSE BM. REPOSITIONED FOR COMFORT. APPEARS COMFORTABLE, NO SIGNS OF AGRIVATION. CAREGIVER AT BEDSIDE. CALL LIGHT WITHIN REACH.
--- NOTE | 2017-08-22 05:45 | NUR ---
PATIENT'S NIGHT WAS UNEVENTFUL. HE HAS BEEN RESTING COMFORTABLY IN BED THROUGHOUT SHIFT. VSS, URINE OUTPUT QS. NO SIGNS OF PAIN THROUGHOUT SHIFT. CONTINUES TO HAVE LARGE AMOUNTS OF LOOSE STOOL, REQUIRES FREQUENT ATTENDS AND LINEN CHANGES. ABD REMAINS MODERATELY DISTENDED, HIGH LEVELS OF FLATULENCE, HYPERACTIVE BOWEL TONES. NO ACUTE CHANGES FROM BEGINNING OF SHIFT. PATIENT HAD GOOD NIGHT OVERALL.
--- NOTE | 2017-08-22 06:47 | NUR ---
PATIENT RESTING COMFORTABLY IN BED, BREATHING IS EVEN AND UNLABORED. BED ALARM ON, CALL LIGHT WITHIN REACH.
--- NOTE | 2017-08-22 07:10 | NUR ---
BEDSIDE HANDOFF REPORT RECEIVED FROM DIRECTOR GLOBAL SALES RN. PT RESTING QUIETLY IN BED. CAREGIVER AT BEDSIDE.
--- NOTE | 2017-08-22 07:30 | NUR ---
PATIENT RESTING IN BED WATCHING TV WITH CAREGIVER IN ROOM. GAVE PATIENT SOME APPLE JUICE AND ADJUSTED PATIENT IN BED. NO OTHER NEEDS AT THIS TIME.
--- NOTE | 2017-08-22 08:49 | NUR ---
PATIENT UP TO BATHROOM AND BACK TO BED WITH CAREGIVER ASSISTING. ORAL CARE DONE. HANDS AND FACE WASHED. TALKED TO CAREGIVER ABOUT SHOWER. HE WILL CALL WHEN HE'S READY. NO OTHER NEEDS AT THIS TIME. FRESH ICE WATER GIVEN.
--- NOTE | 2017-08-22 09:45 | NUR ---
PT RESTIGN QUIETLY IN BED. PT WITH OCCASIONAL GRIMACE, OVERALL APPEARS RELAXED. CAREGIVER REPORT THAT PT APPEARED TO BE IN PAIN 30 MINUTES AFTER EATIGN BREAKFAST, REPORT OF SHAKING AND SWEATING. PT ON ROOM AIR, LUNG SOUNDS CLEAR. PT TOLERATED CHOPPED REGULAR DIET, BOWEL TONES HYPERACTIVE. PT SALINE LOCKED. PT GIVEN MORNING MEDICATIONS, CRUSHED AND TOOK WITH APPLE SAUCE. PT WITHOUT EDEMA, CMS INTACT, PULSES PALPABLE. DISCUSSED PLAN OF CARE WITH CAREGIVERS, SEVERAL QUESTIONS FOR MD ABOUT POSSIBLE DISCHARGE.
--- NOTE | 2017-08-22 10:32 | NUR ---
CAREGIVER REMOVED GAUZE DRESSING TO RIGHT TOE AMBUTATION. STERISTRIPS INTACT, SMALL AMOUNT OF OLD DRY DRAINAGE, NO REDNESS NOTED TO TOE OR SURROUNDING SKIN. CLEAN GAUZE APPLIED TO TOE, SECURED WITH MEDIPORE TAPE. DENIES OTHER NEEDS AT THIS TIME.
--- NOTE | 2017-08-22 11:20 | NUR ---
PATIENT RASTING IN BED. DOOR TRIMMER IN ROOM. NO NEEDS AT THIS TIME.
--- NOTE | 2017-08-22 11:50 | NUR ---
PATIENT SHOWER WITH CAREGIVER AND RN INTERVENTIONAL ASSIST. LINENS CHANGED. PATIENT SITTING UP IN CHAIR EATING LUNCH. NO OTHER NEEDS AT THIS TIME.
--- NOTE | 2017-08-22 12:13 | NUR ---
PT SITTING IN CHAIR, EATING LUNCH, CAREGIVER AT BEDSIDE. PT APPEARS COMFORTABLE, INTERACTING WELL WITH CAREGIVER. PT WITHOUT BOWEL MOVEMENT THIS SHIFT, GIVEN METAMUCIL AND LACTULOSE. DENIES OTHER NEEDS AT THIS TIME.
--- NOTE | 2017-08-22 12:56 | NUR ---
PT WITH MEDIUM STOOL, BROWN IN COLOR, LOOSE WITH SMALL AMOUNT OF MUCUS. PERICARE PERFORMED WITH BARRIER WIPES, ATTENDS IN PLACE. BED ALARM ON, CAREGIVER OFF UNIT FOR BREAK.
--- NOTE | 2017-08-22 13:13 | NUR ---
PATIENT RESTING IN BED WITH MISSILE MECHANIC IN ROOM. FRESH ICE WATER GIVEN. NO OTHER NEEDS AT THIS TIME
[2017-08-22] MEDS ORDERED: BENEFIBER1 EAC1 PO (14:16)
[2017-08-22] MEDS ORDERED: MINERAL OIL EN133 ML PR (14:16)
[2017-08-22] MEDS ORDERED: MILK OF MA400 MG/5 M PO (14:16)
[2017-08-22] MEDS ORDERED: BISAC-EVAC10 MG PR (14:16)
== END 2017-08-22 15:10 | disposition home or self-care (01) ==
LOC: ED 15:42 → MS 15:43
PROVIDERS: ADMIT Internal Medicine
DX: K59.09 Other constipation (principal); F79 Unspecified intellectual disabilities; F20.9 Schizophrenia, unspecified; Z79.1 Long term (current) use of non-steroidal anti-inflammatories (NSAID); Z79.899 Other long term (current) drug therapy; Z86.59 Personal history of other mental and behavioral disorders
CPT/HCPCS: 36415; 51798; 74018; 74022; 80069; 83735; 96374; 96376; 99285; G0378; J2060; J7030

== ENCOUNTER 2018-01-30 07:46 | Emergency (ER) | payer OTHER ==
[~2018-01-30] VITALS: Ht 162.6 cm; Wt 51.7 kg
[~2018-01-30 07:46] MED LIST changes: +BENEFIBER1 EAC1 PO; +BISAC-EVAC10 MG PR; +DULCOLAX5 MG PO; +MINERAL OIL EN133 ML PR
[2018-01-30] MEDS ORDERED: AMITIZA24 MCG PO (07:56)
[2018-01-30] MEDS ORDERED: ZITHROMAX250 MG PO (10:23)
== END 2018-01-30 10:52 | disposition home or self-care (01) ==
LOC: ED 07:46
DX: J40 Bronchitis, not specified as acute or chronic (principal); K59.00 Constipation, unspecified; F20.9 Schizophrenia, unspecified; Z79.899 Other long term (current) drug therapy
CPT/HCPCS: 26725; 74022; 80053; 81001; 83605; 85025; 99283; J7030

== ENCOUNTER 2018-02-03 09:36 | Emergency (ER) | payer OTHER ==
[~2018-02-03] VITALS: Ht 162.6 cm; Wt 51.7 kg
[~2018-02-03 09:36] MED LIST changes: +AMITIZA24 MCG PO; +ZITHROMAX250 MG PO
== END 2018-02-03 10:47 | disposition home or self-care (01) ==
LOC: ED 09:36
DX: S61.101A Unspecified open wound of right thumb with damage to nail, initial encounter (principal); Z79.899 Other long term (current) drug therapy; Z23 Encounter for immunization; X58.XXXA Exposure to other specified factors, initial encounter
CPT/HCPCS: 90471; 90715; 99282

== ENCOUNTER 2018-02-05 18:53 | Emergency (ER) | payer OTHER ==
[~2018-02-05] VITALS: Ht 162.6 cm; Wt 51.7 kg
[2018-02-05] MEDS ORDERED: IBUPROFEN200 MG PO (19:23)
[2018-02-05] MEDS ORDERED: ANUSOL-HC25 MG PR (20:39)
== END 2018-02-05 21:09 | disposition home or self-care (01) ==
LOC: ED 18:53
DX: K64.8 Other hemorrhoids (principal); Z79.899 Other long term (current) drug therapy
CPT/HCPCS: 36415; 85025; 99283

== ENCOUNTER 2018-12-05 16:23 | Emergency (ER) | payer OTHER ==
[~2018-12-05] VITALS: Ht 162.6 cm; Wt 59.4 kg
--- OUTSIDE RECORDS SUMMARY | ~2018-12-05 | XMS | Clinical Summary ---
Demographics + + + | Address | [address] | | | [place] [address] | + + + | Home Phone | | + + + | Preferred Language | Unknown | + + + | Marital Status | Single | + + + | Christianity Affiliation | Unknown | + + + | Race | Unknown | + + + | Ethnic Group | Unknown | + + + Author + + + | Author | [facility] | | | and Namana | + + + | Organization | [facility] | | | and Namana | + + + | Address | Unknown | + + + | Phone | Unavailable | + + + Support + + +---------+ + | Name | Relationship | Address | Phone | + + +---------+ + | Jose Manuel,Kalpesh | ECON | Unknown | | + + +---------+ + Care Team Providers + +------+ + | Care New Client Banking Services Clerk Name | Role | Phone | + +------+ + | Imtiaz Lofton | PP | | | MD | | | + +------+ + Allergies No Known Allergies Medications + + + +---------+------+------+-------+ | Medication | Sig | Dispensed | Refills | Star | End | Statu | | | | | | t | Date | s | | | | | | Date | | | + + + +---------+------+------+-------+ | Lactulose 20 | Take by mouth 4 | | 0 | | | Activ | | GM/30ML SOLN | times daily. | | | | | e | + + + +---------+------+------+-------+ | etodolac (LODINE) | Take 400 mg by mouth | | 0 | | | Activ | | 400 mg tablet | 2 times daily. | | | | | e | + + + +---------+------+------+-------+ | multivitamin | Take 1 tablet by | | 0 | | | Activ | | (THEREMS) TABS | mouth Daily. | | | | | e | + + + +---------+------+------+-------+ | propranolol | Take 60 mg by mouth | | 0 | | | Activ | | (INDERAL LA) 60 mg | 2 times daily. | | | | | e | | SR capsule | | | | | | | + + + +---------+------+------+-------+ | baclofen | Take 10 mg by mouth | | 0 | | | Activ | | (LIORESAL) 10 mg | 3 times daily. | | | | | e | | tablet | | | | | | | + + + +---------+------+------+-------+ | Nutritional | Take by mouth 2 | | 0 | | | Activ | | Supplements (ENSURE | times daily. | | | | | e | | PLUS HN PO) | | | | | | | + + + +---------+------+------+-------+ | lithium 300 mg/5 | Take 300 mg by mouth | | 0 | | | Activ | | mL liquid | 2 times daily. | | | | | e | + + + +---------+------+------+-------+ | PARoxetine (PAXIL) | Take by mouth 2 | | 0 | | | Activ | | 10 mg/5 mL | times daily. | | | | | e | | suspension | | | | | | | + + + +---------+------+------+-------+ | OLANZapine | Take 20 mg by mouth | | 0 | | | Activ | | (ZYPREXA) 20 MG | nightly. | | | | | e | | tablet | | | | | | | + + + +---------+------+------+-------+ | butt paste | as needed for Diaper | | 0 | | | Activ | | ointment | Rash. | | | | | e | + + + +---------+------+------+-------+ | bisacodyl | Take 5 mg by mouth 3 | | 0 | | | Activ | | (DULCOLAX) 5 mg EC | times daily. | | | | | e | | tablet | | | | | | | + + + +---------+------+------+-------+ | Wheat Dextrin | Take by mouth 3 | | 0 | | | Activ | | (BENEFIBER ON THE GO | times daily. | | | | | e | | PO) | | | | | | | + + + +---------+------+------+-------+ | AMITIZA 24 MCG | TAKE 1 CAPSULE BY | 60 | 11 | 05/0 | | Activ | | capsule | MOUTH TWICE DAILY | capsule | | 7/20 | | e | | | WITH BREAKFAST AND | | | 18 | | | | | DINNER FOR | | | | | | | | CONSTIPATION | | | | | | + + + +---------+------+------+-------+ | Nutritional | Take by mouth. | | 0 | | | Activ | | Supplements (ENSURE | | | | | | e | | ACTIVE PO) | | | | | | | + + + +---------+------+------+-------+ | [facility] MINERAL OIL | Place rectally. | | 0 | | | Activ | | ENEMA RE | | | | | | e | + + + +---------+------+------+-------+ | BISCOLAX 10 MG | | | 0 | 07/0 | | Activ | | suppository | | | | 3/20 | | e | | | | | | 18 | | | + + + +---------+------+------+-------+ | PROCTO-MED HC 2.5 | | | 0 | 06/2 | | Activ | | % rectal cream | | | | 7/20 | | e | | | | | | 18 | | | + + + +---------+------+------+-------+ | lidocaine | apply thin layer to | 30 mL | 5 | 10/2 | | Activ | | (XYLOCAINE) 2% jelly | anus for anal pain, | | | 9/20 | | e | | | TID PRN | | | 18 | | | + + + +---------+------+------+-------+ | polyethylene | Take 17 g by mouth | 500 g | 2 | 11/2 | | Activ | | glycol (MIRALAX) | Daily as needed (up | | | 0/20 | | e | | powder | to 4 times daily). | | | 18 | | | | | For gas and | | | | | | | | constipation | | | | | | + + + +---------+------+------+-------+ Active Problems + + + | Problem | Noted Date | + + + | Constipation, chronic | 01/03/2018 | + + + Family History + + +------+ + | Medical History | Relation | Name | Comments | + + +------+ + | Other (see comment) | Mother | | In poor health | + + +------+ + + +------+ + + | Relation | Name | Status | Comments | + +------+ + + | Brother | | Alive | | + +------+ + + | Father | | | | + +------+ + + | Mother | | Alive | | + +------+ + + Social History + +-------+ +--------+------+ | Tobacco Use | Types | Packs/Day | Years | Date | | | | | Used | | + +-------+ +--------+------+ | Never Smoker | | | | | + +-------+ +--------+------+ + +---+---+---+ | Smokeless Tobacco: | | | | | Never Used | | | | + +---+---+---+ + + +---------+ + | Alcohol Use | Drinks/We | oz/Week | Comments | | | ek | | | + + +---------+ + | No | | | | + + +---------+ + + + + | Sex Assigned at | Date Recorded | | | | + + + | Not on file | | + + + + + + + | Job Start Date | Occupation | Industry | + + + + | Not on file | Not on file | Not on file | + + + + + + + + | Travel History | Travel Start | Travel End | + + + + + + | No recent travel history available. | + + Last Filed Vital Signs + + + + | Vital Sign | Reading | Time Taken | + + + + | Blood Pressure | 128/89 | 03/08/2018 1330 PDT | + + + + | Pulse | 74 | 03/08/2018 1330 PDT | + + + + | Temperature | 36.4 C (97.5 F) | 03/08/2018 1224 PDT | + + + + | Respiratory Rate | 15 | 03/08/2018 1330 PDT | + + + + | Oxygen Saturation | 100% | 03/08/2018 1330 PDT | + + + + | Inhaled Oxygen | - | - | | Concentration | | | + + + + | Weight | 58.6 kg (129 lb 3 | 03/08/2018952 PDT | | | oz) | | + + + + | Height | 165.1 cm (5' 5") | 03/08/2018952 PDT | + + + + | Body Mass Index | 21.5 | 03/08/2018952 PDT | + + + + Plan of Treatment + + + + + | Health Maintenance | Due Date | Last Done | Comments | + + + + + | Vaccine: | | | | | Dtap/Tdap/Td (1 - | 2 | | | | Tdap) | | | | + + + + + | Vaccine: Influenza | | | | | (Season Ended) | 9 | | | + + + + + Results Not on filefrom Last 3 Months Insurance + +--------+ +--------+ +---------+--------+ | Payer | Benefi | Subscriber | Effect | Phone | Address | Type | | | t Plan | ID | man | | | | | | / | | Dates | | | | | | Group | | | | | | + +--------+ +--------+ +---------+--------+ | [employer] | MODA | [id number] | | [phone] | | Medica | | MEDICAID HMO | HEALTH | | [id number]-Pr | 1 | | id | | | MDCD | | esent | | | | | | HMO OR | | | | | | + +--------+ +--------+ +---------+--------+ + +--------+ +--------+ + + | Guarantor Name | Accoun | Relation to | Date | Phone | Billing Address | | | t Type | Patient | of | | | | | | | | | | + +--------+ +--------+ + + | Emily Peres | Person | Self [birth year] [address] | | | al/Fam | | 1971 | [phone] | [place] [address] | | | deepali | | | 0 (Home) | | + +--------+ +--------+ + + Advance Directives Patient has advance care planning documents on file. For more information, please contact:[facility] [place] [address]
--- OUTSIDE RECORDS SUMMARY | ~2018-12-05 | XMS | Clinical Summary ---
Demographics + + + | Address | [address] | | | [place] [address] | + + + | Home Phone | | + + + | Preferred Language | Unknown | + + + | Marital Status | Single | + + + | Roman Catholic Affiliation | Unknown | + + + | Race | Unknown | + + + | Ethnic Group | Unknown | + + + Author + + + | Author | [facility] | | | and Namana | + + + | Organization | [facility] | | | and Namana | [...] Team Providers + +------+ + | Care Gristmiller Name | Role | Phone | + [...] | [employer] | MODA | [id number] | | [phone] | | Medica | | MEDICAID HMO [...] | Self | [birth year] [address] | | | al/Fam | | 1971 | [phone] | [place] [address] | | | [place]ali | | | 0 (Home) | | + +--------+ +--------+ + + Advance Directives Patient has advance care planning documents on file. For more information, please contact:[facility] [place] [address]
[~2018-12-05 16:23] MED LIST changes: +ANUSOL-HC25 MG PR; +IBUPROFEN200 MG PO
--- OUTSIDE RECORDS SUMMARY | 2018-12-05 16:26 | XMS ---
PreManage Notification: YESENIA BRISCOE [employer] Events No recent Security Events currently on file CRITERIA MET - [facility] - Has Care Guidelines CARE PROVIDERS DR INGRID LOFTON Primary Care Current PHONE: [phone] [facility] Provider Current PHONE: [phone] Marianela has no Care Guidelines for this patient. Care History Medical/Surgical 02/06/2018 [facility] - Patient can be seen same day at PCP office if patient calls first thing in the am. - Non emergent ED visits needs to be directed to his PCP Dr Lofton. - Dr Lofton and GM Pryor are aware of the ED usage and are working on patient to maintain health outside of the ED. - Patient caregiver needs to be educated on ED usage for patient. CHW called patient several times voicemail is not set up. Care Recommendation: This patient has had 5 or more Emergency Department visits in the last 12 months.\T\ nbsp; Patient requires education on the scope and purpose of the ED as an acute care provider not a Primary Care Provider and should not be utilized for chronic conditions.\T\nbsp; If patient returns to ED please contact Community Health WorkerMena at [phone]. These are guidelines and the provider should exercise clinical judgment when providing care. Behavioral 04/24/2018 Gio Fry Currently working with [facility] for mental health medication management.\T\ nbsp; Please contact [facility] with mental health concerns. [phone] E.D. VISIT COUNT (12 MO.) 4 MEE [facility] TOTAL 4 NOTE: Visits indicate total known visits. ED/UCC VISIT TRACKING (12 MO.) 12/05/2018 16:23 [facility] [place] TYPE: Emergency COMPLAINT: - VOMITING 02/05/2018 18:54 [facility] TYPE: Emergency COMPLAINT: - BLOOD IN HIS INTENDS DIAGNOSES: - Other hemorrhoids - Other silk screen painter (current) drug therapy - Hemorrhage of anus and rectum 02/03/2018 09:36 [facility] TYPE: Emergency COMPLAINT: - L THUMB NAIL PROB DIAGNOSES: - Unspecified injury of right wrist, hand and finger(s), initial encounter - Unspecified open wound of right thumb with damage to nail, initial encounter - Other snf (current) drug therapy - Encounter for immunization - Exposure to other specified factors, initial encounter 01/30/2018 07:47 [facility] [place] TYPE: Emergency COMPLAINT: - COLD SWEATS,CRYING DIAGNOSES: - Constipation, unspecified - Other silk screen painter (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
[2018-12-05] MEDS ORDERED: TUSSIN100 MG/51 PO (16:41)
[2018-12-05] MEDS ORDERED: ZOFRAN4 MG SL (18:40)
[2018-12-05] MEDS ORDERED: KEFLEX500 MG PO (18:40)
== END 2018-12-05 21:22 | disposition home or self-care (01) ==
LOC: ED 16:23
PROC: 0T9B70Z Drainage of Bladder with Drainage Device, Via Natural or Artificial Opening (ICD-10-PCS; principal; 2018-12-05)
DX: N39.0 Urinary tract infection, site not specified (principal); R33.9 Retention of urine, unspecified; F20.9 Schizophrenia, unspecified; Z89.422 Acquired absence of other left toe(s); Z89.421 Acquired absence of other right toe(s); Z79.899 Other long term (current) drug therapy
CPT/HCPCS: 51701; 74177; 80053; 81001; 83690; 85025; 99284-25; C9113; J0696; J2405; J7030; Q9967

== ENCOUNTER 2019-01-05 00:30 | Emergency (ER) | payer OTHER ==
[~2019-01-05] VITALS: Ht 162.6 cm; Wt 63.5 kg
--- OUTSIDE RECORDS SUMMARY | ~2019-01-05 | XMS | Clinical Summary ---
Demographics + + + | Address | [address] | | | [place] [address] | + + + | Home Phone | | + + + | Preferred Language | Unknown | + + + | Marital Status | Single | + + + | Anabaptism Affiliation | Unknown | + + + | Race | Unknown | + + + | Ethnic Group | Unknown | + + + Author + + + | Author | [facility] | | | and Namana | + + + | Organization | [facility] | | | and Namana | [...] Team Providers + +------+ + | Care Helix Coil Winder Name | Role | Phone | + [...] | [employer] | MODA | [id number] | | [phone] | | Medica | | MEDICAID HMO [...] | Self | [birth year] | [address] | | | al/Fam | | 1971 | [phone] | [place] [address] | | | deepali | | | 0 (Home) | | + +--------+ +--------+ + + Advance Directives Patient has advance care planning documents on file. For more information, please contact:[facility] [place] [address]
--- OUTSIDE RECORDS SUMMARY | ~2019-01-05 | XMS | Clinical Summary ---
Demographics + + + | Address | [address] | | | [place] [address] | + + + | Home Phone | | + + + | Preferred Language | Unknown | + + + | Marital Status | Single | + + + | Church Affiliation | Unknown | + + + | Race | Unknown | + + + | Ethnic Group | Unknown | + + + Author + + + | Author | [facility] | | | and Namana | + + + | Organization | [facility] | | | and Namana | [...] Team Providers + +------+ + | Care Judge'S Clerk Name | Role | Phone | [...] | [employer] | MODA | [id number] | | [phone] | | Medica | | MEDICAID HMO [...] | Self | [birth year] | [address] | | | al/Fam | | 1971 | [phone] | [place] [address] | | | deepali | | | 0 (Home) | | + +--------+ +--------+ + + Advance Directives Patient has advance care planning documents on file. For more information, please contact:[facility] [place] [place] [address]
[~2019-01-05 00:30] MED LIST changes: +KEFLEX500 MG PO; +TUSSIN100 MG/51 PO; +ZOFRAN4 MG SL
--- OUTSIDE RECORDS SUMMARY | 2019-01-05 00:32 | XMS ---
PreManage Notification: YESENIA BRISCOE Security Office Administration Events No recent Security Events currently on file CRITERIA MET - [facility] Guidelines CARE PROVIDERS FRANCISCA LOFTON Family Medicine 12/06/2018-Current PHONE: Unknown DR INGRID LOFTON Primary Care Current PHONE: [phone] [facility] Mental Health Provider Current PHONE: [phone] Marianela has no Care Guidelines for this patient. Care History [facility]iz has worked with [facility] for mental health medication management.\ T\nbsp; Please contact [facility] with mental health concerns. [phone] Medical/Surgical 02/06/2018 [facility] - Patient can be seen same day [...] ED please contact Community Health WorkerMena at [phone]. These are guidelines and the provider should exercise clinical judgment when providing care. E.D. VISIT COUNT (12 MO.) 5 [facility] TOTAL 5 NOTE: Visits indicate total known visits. ED/UCC VISIT TRACKING (12 MO.) 01/05/2019 00:30 [facility] TYPE: Emergency COMPLAINT: - VOMITING 12/05/2018 16:23 [facility] [place] TYPE: Emergency COMPLAINT: - VOMITING DIAGNOSES: - Retention of urine, unspecified - Vomiting, unspecified - Urinary tract infection, site not specified - Acquired absence of other left toe(s) - Acquired absence of other right toe(s) - Schizophrenia, unspecified - Other penitentiary (current) drug therapy 02/05/2018 18:54 [facility] [place] TYPE: Emergency COMPLAINT: - BLOOD IN HIS INTENDS DIAGNOSES: - Other hemorrhoids - Other oil heaterman (current) drug therapy - Hemorrhage of anus and rectum 02/03/2018 09:36 [facility] [place] TYPE: Emergency COMPLAINT: - L THUMB NAIL PROB DIAGNOSES: - Unspecified injury of right wrist, hand and finger(s), initial encounter - Unspecified open wound of right thumb with damage to nail, initial encounter - Other oil heaterman (current) drug therapy - Encounter for immunization - Exposure to other specified factors, initial encounter 01/30/2018 07:47 [facility] [place] TYPE: Emergency COMPLAINT: - COLD SWEATS,CRYING DIAGNOSES: - Constipation, unspecified - Other oil heaterman (current) drug therapy - Bronchitis, not specified as acute or chronic - Schizophrenia, unspecified INPATIENT VISIT TRACKING (12 MO.) No inpatient visits to display in this time frame [email or web address]
== END 2019-01-05 04:00 | disposition home or self-care (01) ==
LOC: ED 00:30
DX: R11.10 Vomiting, unspecified (principal); F20.9 Schizophrenia, unspecified
CPT/HCPCS: 51798; 80053; 83735; 85025; 99284-25; J7030

== ENCOUNTER 2019-04-16 13:41 | Observation (INO) | payer OTHER ==
[~2019-04-16] VITALS: Ht 162.6 cm; Wt 50.8 kg
[~2019-04-16 13:41] MED LIST changes: +ZOFRAN4 MG PO
--- OUTSIDE RECORDS SUMMARY | 2019-04-16 13:44 | XMS ---
PreManage Notification: YESENIA BRISCOE Security Recenterer Events No recent Security Events currently on file CRITERIA MET - [facility] CARE PROVIDERS FRANCISCA LOFTON Family [facility] 12/06/2018-Current PHONE: Unknown DR INGRID LOFTON Primary Care Current PHONE: [phone] [facility] Mental [facility] Provider Current PHONE: [phone] Guidelines Source: [facility] [place] Guidelines Date: 01/07/2019 Care Coordination: Mental health services provided by [facility].\T\nbsp; Please contact [facility] with mental health concerns.\T\nbsp; [place]: [phone]\T\ nbsp; [place]: [phone]. Care History Behavioral 04/24/2018 [facility] - Ang Veliz has worked with [facility] for mental health medication management.\ T\nbsp; Please contact [facility] with mental health concerns. [phone] Medical/Surgical 02/06/2018 [facility] - Patient can be seen same day [...] ED please contact Community Health WorkerMena at [phone]. These are guidelines and the provider should exercise clinical judgment when providing care. E.D. VISIT COUNT (12 MO.) 4 [facility] TOTAL 4 NOTE: Visits indicate total known visits. ED/UCC VISIT TRACKING (12 MO.) 04/16/2019 13:42 [facility] TYPE: Emergency COMPLAINT: - NOT FEELING WELL 03/11/2019 22:40 [facility] TYPE: Emergency COMPLAINT: - VOMITING DIAGNOSES: - Schizophrenia, unspecified - Other chcf (current) drug therapy - Vomiting, unspecified - Constipation, unspecified - Hematemesis 01/05/2019 00:30 [facility] TYPE: Emergency COMPLAINT: - VOMITING DIAGNOSES: - Schizophrenia, unspecified - Vomiting, unspecified 12/05/2018 16:[address] [facility] [place] TYPE: Emergency COMPLAINT: - VOMITING DIAGNOSES: - Retention of urine, unspecified - Vomiting, unspecified - Urinary tract infection, site not specified - Acquired absence of other left toe(s) - Acquired absence of other right toe(s) - Schizophrenia, unspecified - Other chcf (current) drug therapy INPATIENT VISIT TRACKING (12 MO.) No inpatient visits to display in this time frame [email or web address]
--- NOTE | 2019-04-16 16:32 | NUR ---
REPORT RECEIVED FROM GM LUZ, IN E.R.
[2019-04-16] MEDS ORDERED: ZYPREXA15 MG PO (17:02)
[2019-04-16] MEDS ORDERED: ENULOSE10 GM/15 M PO (17:02)
[2019-04-16] MEDS ORDERED: ONDANSETRON ODT4 MG SL (17:03)
[2019-04-16] MEDS ORDERED: PAXIL10 MG/5 ML PO (17:04)
[2019-04-16] MEDS ORDERED: MIRALAX17 GM PO (17:05)
[2019-04-16] MEDS ORDERED: ANECREAM515 GM TOP (17:09)
--- NOTE | 2019-04-16 17:27 | NUR ---
PATIENT HAD LARGE URINARY AND BOWEL INCONTINENCE EPISODE WHEN BROUGHT TO THE [facility].
--- NOTE | 2019-04-16 17:42 | NUR ---
PATIENT ADMITTED TO MED SURG. PATIENT WILL NOT HAVE [facility] CAREGIVER TONIGHT, PATIENT IN BED WITH BED ALARM. PATIENT CALL OUT FREQUENTLY AND THIS IS HIS BASELINE. PATIENT HAS HAD 2 LARGE BM'S AND ONE LARGE VOID SINCE COMING TO HOSPITAL. LR 500ML BOLUS INFUSING THEN IVF TO BE 75ML/HOUR. PATIENT TOLERATING SIPS OF THICKENED LIQUID, NO COUGH AT THIS TIME. PATIENT HAS BEEN AFEBRILE SINCE COMING TO MED SURG.
--- NOTE | 2019-04-16 19:35 | EKG ---
[facility] [address] [facility] [address] [facility] [place], [place] [address] Signed Sinus tachycardia Otherwise normal ECG No previous ECGs available Confirmed by JACQUELYN HILLIARD DO ([id number]) on 04/16/2019 7:34:56 PM Electronically Signed By: JACQUELYN HILLIARD DO 04/16/19 1935 PATIENT NAME: YESENIA BRISCOE PREETI Electrocardiogram DATE OF : 74 PHYSICIAN: JACQUELYN HILLIARD DO REPORT #: [id number] REPORT IS CONFIDENTIAL AND NOT TO BE RELEASED WITHOUT AUTHORIZATION
--- NOTE | 2019-04-16 19:36 | NUR ---
ROUNDED CHARGE. PATIENT IS RESTING IN BED. PATIENT DOES NOT ANSWER QUESTIONING. PATIENT APPEARS COMFORTABLE. CALL LIGHT IN REACH AND BED ALARM ON FOR SAFETY.
--- NOTE | 2019-04-16 19:54 | NUR ---
RECIEVED PATIENT REPORT FROM DAY SHIFT RN. PATIENT ON HIS LEFT SIDE, SAYING SOMETHING OVER AND OVER, BUT UNABLE TO UNDERSTAND WHAT IT IS. PATIENT DOESEN'T APPEAR TO BE IN DISTRESS.
--- NOTE | 2019-04-16 22:08 | NUR ---
CALLED AND LET HIM KNOW THAT WE WERE ABLE TO GET SOME MEDS DOWN THE PATIENT, BUT NOT NEARLY ALL. WE TRIED THICKENED TO DRINK, THEN SYRINGE, AND THEN THICKENED IT UP ENOUGH TO TRY A SPOON. EACH TIME HE WOULD EAT SOME THEN WOULD SPIT THE REST OUT AND SCREAM. SAID TO JUST WATCH FOR TONIGHT AND WE WILL DEAL WITH THE PATIENTS FACILITY TOMORROW ON HOW THEY GET HIM TO EAT. IT MAY JUST BE THE UNFAMILIAR SURROUNDINGS AND PEOPLE. ALSO LET KNOW PATIENT HAD A HUGE INCONTINENT PASTY STOOL AND INCONTINENT URINE WELL.DR. HILLIARD VERBALIZED UNDERSTANDING.
--- NOTE | 2019-04-17 00:15 | NUR ---
PATIENT HAD ANOTHER LARGE BOWEL/URINE INCONTINENCE EPISODE AND WAS WASHED UP AND REPOSITIONED. PATIENT STILL MAKE THE SAME SOUND OVER AND OVER, NO IDEA WHAT PATIENT IS TRYING TO SAY. TRIED TO MAKE PATIENT COMFORTABLE POSSIBLE. PATIENT CAN BE SEEN FROM DESK.
--- NOTE | 2019-04-17 02:30 | NUR ---
PATIENT RESTING NOW NO MORE SOUNDS, RESPIRATIONS REGULAR AND EVEN, SEEMS MORE RELAXED. CAN BE SEEN FROM DESK.
--- NOTE | 2019-04-17 03:58 | NUR ---
PATIENT STILL RESTING QUIETLY, RESPIRATIONS REGULAR AND NORMAL, NO SIGNS OF RESTLESSNESS. PATIENT CAN BE SEEN FROM DESK.
--- NOTE | 2019-04-17 04:54 | NUR ---
PATIENT RESTLESS FIRST PART OF THE NIGHT, AND MULTIPLE EPISODES OF INCONTINENCE OF LARGE AMOUNTS OF STOOL AND URINE. SKIN BARRIER CREAM HAS BEEN APPLIED, PATIENT CALMED THE SECOND HALF OF THE NIGHT AND HAS BEEN RESTING QUIETLY, WITH REGULAR AND NORMAL RESPIRATIONS OF 16-18. VS HAVE BEEN STABLE. STILL HAVING A HARD TIME GETTING PATIENT TO TAKE ORAL MEDS. DR.PITEO WARD.
--- NOTE | 2019-04-17 07:15 | NUR ---
PT RESTING IN LEFT LATERAL SIDE IN SEMI FOWLERS POSITION IN BED. EYES CLOSED AND RESPIRATIONS EVEN AND UNLABORED. CALL LIGHT AND H2O IN REACH. PT APPEARS TO BE SLEEPING COMFORTABLY. BEDSIDE REPORT RECEIVED FROM GM BROWN.
--- NOTE | 2019-04-17 08:52 | NUR ---
PT RESTING SUPINE IN BED APPEARS TO BE IN NO ACUTE DISTRESS. PT IS NONVERBAL WITH HISTORY OF MRDD. PT ASSESSMENT COMPLETED AND AM MEDS ADMINISTERED. PT'S CAREGIVER FROM [facility] AT BEDSIDE. NO NEEDS/CONCERNS VOICED.
--- NOTE | 2019-04-17 11:35 | NUR ---
PT RESTING ON LEFT LATERAL SIDE IN BED. ENEMA ADMINISTERED PER MD REQUEST. PT TOLERATED WELL AND HAD VERY LARGE SOFT BROWN BM. PT ASSISTED WITH CLEANING UP AND CHANGED ATTENDS AND LINEN. PT APPEARS TO BE IN NO DISTRESS ON LEFT LATERAL SIDE WITH RESPIRATIONS EVEN AND UNLABORED. [facility] CAREGIVER AT BEDSIDE WITH PATIENT. NO NEEDS/CONCERNS VOICED. MD AWARE OF RESULTS AND STATES HE WILL LIKELY DISCHARGE PT TODAY.
[2019-04-17] MEDS ORDERED: AMOX TR-K400 MG/5 M PO (12:09)
[2019-04-17] MEDS ORDERED: DULCOLAX10 MG PR (12:11)
--- NOTE | 2019-04-17 12:41 | NUR ---
GM EATON SUGGESTED I NOT VISIT AT THIS MOMENT. PT WAS JUST AGGITATED WITH STAFF IN CARING FOR HIM. PT IS MRDD WITH THE [facility] PROGRAM. WILL FOLLOW NEEDED
--- NOTE | 2019-04-17 15:55 | NUR ---
THIS MORNING AFTER THE VITALS WERE DONE. THE NURSE AND I CHANGED HIM AND HIS BED LINENS.
== END 2019-04-17 13:20 | disposition home or self-care (01) ==
LOC: ED 13:41 → MS 13:43
PROVIDERS: ADMIT Student in an Organized Health Care Education/Training Program
DX: A41.9 Sepsis, unspecified organism (principal); J69.0 Pneumonitis due to inhalation of food and vomit; F79 Unspecified intellectual disabilities; K59.04 Chronic idiopathic constipation; F43.10 Post-traumatic stress disorder, unspecified; F31.9 Bipolar disorder, unspecified; Z86.59 Personal history of other mental and behavioral disorders; Z79.899 Other long term (current) drug therapy
CPT/HCPCS: 36415; 51701; 71045; 74018; 80048; 80053; 80178; 81001; 83605; 85025; 93005; 93010; 96367; 96372; 96376; 99285-25; G0378; J0295; J1170; J1650; J2543; J7030; J7060; J7120

== ENCOUNTER 2019-09-03 08:58 | Inpatient (IN) | payer OTHER ==
[~2019-09-03] VITALS: Ht 162.6 cm; Wt 56.3 kg
[~2019-09-03 08:58] MED LIST changes: +AMOX TR-K400 MG/5 M PO; +ANECREAM515 GM TOP; +DULCOLAX10 MG PR; +ENULOSE10 GM/15 M PO; +ONDANSETRON ODT4 MG SL; +ZYPREXA15 MG PO
--- OUTSIDE RECORDS SUMMARY | 2019-09-03 09:02 | XMS ---
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 No recent Security Events currently on file CRITERIA MET - [facility] CARE PROVIDERS FRANCISCA LOFTON Family [facility] 12/06/2018-Current PHONE: [phone] DR INGRID LOFTON Primary Care Current PHONE: [phone] [facility] Mental [facility] Provider Current PHONE: [phone] Guidelines Source: [facility] [place] Guidelines Date: 01/07/2019 Care Coordination: Mental health services provided by [facility].\T\nbsp; [facility] contact [facility] with mental [facility] concerns.\T\nbsp; [place]: [phone]\T\ nbsp; [place]: [phone]. Care History Medical/Surgical 02/06/2018 [facility] - Patient can be seen same day [...] ED please contact Community Health WorkerMena at [phone]. These are guidelines and the provider should exercise clinical judgment when providing care. Behavioral 04/24/2018 [facility] - Ang Veliz has worked with [facility] for mental health medication management.\ T\nbsp; Please contact [facility] with mental health concerns. [phone] E.D. VISIT COUNT (12 MO.) 5 [facility] TOTAL 5 NOTE: Visits indicate total known visits. ED/UCC VISIT TRACKING (12 MO.) 09/03/2019 09:00 [facility] TYPE: Emergency COMPLAINT: - POSSIBLE UTI 04/16/2019 13:42 [facility] TYPE: Emergency COMPLAINT: - NOT FEELING WELL 03/11/2019 22:40 [facility] TYPE: Emergency COMPLAINT: - VOMITING DIAGNOSES: - Schizophrenia, unspecified - Other custodial (current) drug therapy - Vomiting, unspecified - Constipation, unspecified - Hematemesis 01/05/2019 00:30 [facility] [place] TYPE: Emergency COMPLAINT: - VOMITING DIAGNOSES: - Schizophrenia, unspecified - Vomiting, unspecified 12/05/2018 16:23 [facility] TYPE: Emergency COMPLAINT: - VOMITING DIAGNOSES: - Retention of urine, unspecified - Vomiting, unspecified - Urinary tract infection, site not specified - Acquired absence of other left toe(s) - Acquired absence of other right toe(s) - Schizophrenia, unspecified - Other custodial (current) drug therapy INPATIENT VISIT TRACKING (12 MO.) 04/16/2019 13:43 [facility] TYPE: Observation COMPLAINT: - ASPIRATION DIAGNOSES: - Pneumonitis due to inhalation of food and vomit - Unspecified intellectual disabilities - Bipolar disorder, unspecified - Sepsis, unspecified organism Sepsis, u - Other lobsterman (current) drug therapy - Post-traumatic stress disorder, unspecified - Personal history of other mental and behavioral disorders - Chronic idiopathic constipation [email or web address]
[2019-09-03] MEDS ORDERED: SULFAMETHOXAZO473 M2 PO (09:20)
[2019-09-03] MEDS ORDERED: DIVALPROEX SOD250 MG PO (09:20)
[2019-09-03] MEDS ORDERED: MYSOLINE50 MG PO (12:29)
--- NOTE | 2019-09-03 12:36 | NUR ---
PATIENT SOAKING WET FROM URINE WHEN BROUGHT TO ROOM 111. LINEN CHANGED IMMEDIATELY UPON TRANSFER TO BED FROM STRETCHER. CHUCKS UNDERNEATH PATIENT. IVF INFUSING NOW. STUDENT NURSE ASSISTING WITH SETTLING PATIENT IN. PATIENT OCCASIONALLY CRIES OUT. TV TURNED ON TO CARTOON CHANNEL TO DISTRACT PATIENT. NPO NOW.
--- NOTE | 2019-09-03 13:00 | NUR ---
Notified by Rn, Dr Hernandez needs information on guardianship for Emily. To room and spoke with Holly Fortune who is his house career placement specialist [phone]. All information should go through her. She will pass information to his [facility] vocational case manager Candi Gambel [phone] and his health mall plant caretaker Delilah Monteiro [phone]. She states there is a care team in place who reproduction production manager his care and they need to be contacted prior to treatment. PT IS HIS OWN GUARDIAN, but they need to be contacted due to his DD diagnosis. She states other DX: are abd distention, PTSD, BIpolar, chronic constipation, Mod intellectual disabiltity. Pt lives in a [facility] and can walk, but usually uses a wc, as well as, raised toilet seat and shower chair. He requires assistance to walk. They state pt in the past has attempted to crawl from bed, but not in recent year. Discussed fall risk and asked if they will be staying with pt. Holly states they are not able to provide staffing at night. Physical Sciences Instructor notified. Holly states pt's mom is living, but does not have privy to his information. Updated Dr Hernandez to guardianship status and phone numbers to contact if pt needs surgery.
--- NOTE | 2019-09-03 13:01 | NUR ---
ROSA BUTADIENE COMPRESSOR OPERATOR, IN VISITING WITH CARE TEAM FOR PATIENT.
--- NOTE | 2019-09-03 13:32 | NUR ---
PT CAREGIVER STATES THE PT IS IN INCREASING PAIN. ADMINSITERED MORPH. PT NOW APPEARS TO BE RESTING COMFORTABLELY
--- NOTE | 2019-09-03 14:00 | NUR ---
PATIENT RESTING IN BED. CAREGIVERS IN ROOM. PATIENT'S ATTEND, GOWN AND LINENS CHANGED. TWO PERSON ASSISTING. CALL LIGHT WITHIN REACH. NO OTHER NEEDS AT THIS TIME
--- NOTE | 2019-09-03 15:34 | NUR ---
PATIENT YELLING OUT OFTEN. CAREGIVERS REPORT HE IS WANTING SOMETHING TO EAT/DRINK. CONTINUING NPO STATUS BUT PROVIDED MOUTH SWABS AND CHAPSTICK. NOTICED BLEEDING MUCUS MEMBRANES BEHIND LOWER LIP.
--- NOTE | 2019-09-03 17:24 | NUR ---
Medications reconciled using facility [facility]
--- NOTE | 2019-09-03 17:31 | NUR ---
PT SLEEPING SOUNDLY AT THIS TIME. ONE CAREGIVER STILL AT BEDTIME. WAITING FOR ANY WORD OF THE PLAN FROM DOCTOR PAUL WHEN AVAILABLE.
--- NOTE | 2019-09-03 17:42 | NUR ---
ED ADMIT FOR ABDOMINAL PAIN FROM POSSIBLE BOWEL PERFORATION. UNKNOWN PLAN FOR TONIGHT. SURGERY OR NOT? MRDD AND SCHIZOPHRENIA. LIVES AT [facility]. W/C BASELINE. HISTORY OF FALLS. D5LR @85 IN RFA. ROOM AIR. CAREGIVER AT BEDSIDE DURING DAYTIME. 1-2P ASSIST. INCONTINENT. LAST BM TODAY (09/03). MORPHINE AND TORADOL FOR ABDOMINAL PAIN.
--- NOTE | 2019-09-03 20:30 | NUR ---
ROUNDED CHARGE. PATIENT IS RESTING IN BED. PATIENTS CAREGIVER IS AT THE BEDSIDE. NO NEEDS NOTED. CALL LIGHT IN REACH. CHELA GARRISON PRESENT IN THE ROOM.
--- NOTE | 2019-09-03 20:43 | NUR ---
LAYING ON L SIDE, COOPERATIVE WITH ASSESSMENT AND CITALS. ACTIVE BOWEL TONES , ASSESSED BY 2 RN'S. INCONTINENT ATTENDS IN PLACE. CONTRATURES OF HANDS AND FEET PRESENT. IVF R WRIST PATENT. NPO FOR POSSIBLE AM SURGERY, CAREGIVER ZEKE JF INFORMED OF DR ROOSEVELT KOLB OF NO SURGERY TONIGH AND THAT HE WILL REASSESS HIM IN AM. CALL LIGHT AT BEDSIDE, MOUTH CARE DONE
--- NOTE | 2019-09-03 22:18 | NUR ---
PATIENT CALLING OUT. APPEARS PAINFUL. DIAPHORETIC WITH FLACC SCORE 9/10. PRN MEDS PROVIDED. RN AT BEDSIDE FOR 1:1 REASSURANCE.
--- NOTE | 2019-09-04 00:40 | NUR ---
RESTING, CALMER, EYES CLOSED, IVF INFUSING, BED ALARM ON
--- NOTE | 2019-09-04 02:19 | NUR ---
MEDICATED WITH MORPHINE 6MG IV PER FLACC SCALE, INCONTINENT OF URINE, SKIN CARE DONE, BARRIER CREAM APPLIED, REPOSITIONED. MOUTH CARE DONE
--- NOTE | 2019-09-04 05:00 | NUR ---
Pt has been NPO for all this shift. Pt is non verbal, makes grunting-moaning garbled speech sounds. Has been medicated with Morphine 3x and Toradol x1 per facial distress. Was incontinent of urine x3. skin care done, clean attends in place. Repositioned, Pt has chronic contractures of hands and legs. Mouth care done. IVF infusing w/o problems. call light at bedside, and bed alarm on.
--- NOTE | 2019-09-04 05:54 | NUR ---
Awakes easily, repositioned with pillows, attends dry at this time. ivf infusing. mouth care done, continues to be NPO for possible AM procedure. Coop with lab draws and vitals, bed alrm and vall light at bedside
--- NOTE | 2019-09-04 07:14 | NUR ---
0705: REPORT RECEIVED FROM DEYVI WORRELL. PT SLEEPING AT THIS TIME, CALL RUANO WITHIN REACH AND BED ALARM IS ON. D5LR RUNNING AT 85ML/HR.
--- NOTE | 2019-09-04 09:37 | NUR ---
Pt laying in his bed yelling and is sweating. Pt unable to answer if he is in pain and the cg states she belives that he maybe in pain. Pt medicated as ordered, see emar. Pt yelling during assessment and it was difficult to get a good listen to his lungs, heart and bowels. 2 caregivers in the room with him at this time state he wakes yelling every morning and this is nothing out of the norm for him. Caregivers remain in the room and were instructed to call if they belive him to be in pain or any noted changes in his condition from his baseline. Will continue to monitor.
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
--- NOTE | 2019-09-04 10:28 | NUR ---
The pt's caregiver states she belives the pt is comfortable and that he is acting normal for him.
--- NOTE | 2019-09-04 10:41 | NUR ---
THE CG (AYSE) STATES SHE BELIVES THE PT IS UNCOMFORTABLE AT THIS TIME. PT MEDICATED, SEE EMAR.
--- NOTE | 2019-09-04 12:12 | NUR ---
DR MILLER IS IN THE PT'S ROOM SPEAKING WITH HIS CAREGIVER TEAM AT THIS TIME.
--- NOTE | 2019-09-04 12:53 | NUR ---
PT LAYING IN BED ON HIS L SIDE WITH STUFFED ANIMAL IN HIS GRASP. PT MOSTLY NON-VERBAL. PT HAS 3 CAREGIVERS, ALL SEEM TO BE ACTIVLY INVOLVED IN PTS' CARE EXTENDED A BLESSING, WILL FOLLOW NEEDED
--- NOTE | 2019-09-04 13:40 | NUR ---
pre-op wipes done and the pt was taken to DS at this time.
--- NOTE | 2019-09-04 15:36 | NUR ---
THIS MORNING AFTER DOING VITALS THE CAREGIVER HELPED ME CHANGE HIM.
--- NOTE | 2019-09-04 16:26 | NUR ---
09/04/19 1626 Shanique Monteiro 1618- PT ARRIVES TO PACU NONAROUSABLE TO NOXIOUS STIMULI WITH A NPA IN PLACE TO THE LEFT NARE. OXYGEN SAT HIGH 90'S TO 100% ON 10L VIA MASK. RESP EVEN AND UNLABORED. 1620- PT NEEDING A JAW LIFT TO MAINTAIN A PATENT AIRWAY.
--- NOTE | 2019-09-04 17:21 | NUR ---
1715: PT RETURNED TO HIS ROOM IN MED-SURG. VITAL SIGNS STABLE ON 2L VIA NC. ABD INCISION SITES x3 WITH STERI-STRIPS IN PLACE AND A SMALL AMOUNT OF DRAINAGE NOTED. THE PT'S MOTHER AND AUNT NOW IN THE ROOM AND WITH THE CG WELL.
--- NOTE | 2019-09-04 17:42 | NUR ---
PT AWAKE AND APPEARS AT BASELINE FOR INTERACTION. HIS UPPER AIRWAY SOUNDS ARE MOIST BUT THE PT WILL NOT COUGH OR SWALLOW WHEN REQEUSTED. PT SUCTIONED AND A MODERATE AMOUNT OF MUCUS WAS SUCTIONED UP, PT TOLERATED WELL.
--- NOTE | 2019-09-04 17:47 | NUR ---
SAT 99% AT THIS TIME.
--- NOTE | 2019-09-04 17:57 | NUR ---
PT TREATED FOR PAIN, SEE EMAR. PT NOW TAKING WATER WELL.
--- NOTE | 2019-09-04 18:18 | NUR ---
SAT 99%, O2 TURNED OFF.
--- NOTE | 2019-09-04 20:26 | NUR ---
awake, all procedures explained to pt prior to. Pt non verbal, groans, moand and makes guttural screaming sounds. mouth care done. on room air. lungs dim but pt takes shallow breaths. abd jason, ss lap sites with umbilical area w ss drainage, 2x2 applied to that aea. incontinent of urine, clean attends, has berrier cream. contracture of hands, legs and feet. took meds with applesauce. mother and [facility] caregiver in room. repositioned with pillows. hob elevated. calmer after getting meds. call light at hands reach
--- NOTE | 2019-09-04 21:30 | NUR ---
REPOSITIONED PT WAS SCREAMING, MEDICATED WITH MORPHINE 4MG IV PER FLACC OF 12/20. . ATTENDS DRY. SCDS IN PLACE, CALL LITH AT BEDSIDE, BED ALARM ON PER HIGH FALL RISK PRECAUTIONS
--- NOTE | 2019-09-04 22:42 | NUR ---
CALMER, STILL MOANING SILENTLY, REPOSITIONED. ABD SS WITH OLD DRAINAGE IN PLACE, UNABLE TO ANSWER IF HES PASSING GAS. ATTENDS IN PLACE, ON ROOM AIR, IVF INGUSING.
--- NOTE | 2019-09-05 01:15 | NUR ---
PT INCONTINENT OF URINE, ATTENDS, GOWN AND BEDDING CHANGED, SKIN CARE DONE. REPOSTIONED. GROANING AND MOANING, MEDICATED WITH MORPHINE 4MG IV 6/10 FLACC SCALE, AND SCHEDULED IV TYLENOL. PROCEDURE EXPLAINED TO PT, UNABLE TO ASSESS CALL LIGTH AT BEDSIDE, TOLERATED SIPS OF FLUIDS
--- NOTE | 2019-09-05 03:28 | NUR ---
groaning, moaning and trying to move legs in bed. incontinent of urine, skin care done, clean attends in place. umbilical area ss came off, and moderate amount of sanguineous drainage present, 2x2 and opsite applied..all other 2 sites intact w ss in place, jason bowel tones present. Pt repositioned in bed, Medicated with Toradol 6mg IV 6/10 FLACC pain scale. Reassured verbally, calmed down. Tolerated sips of water. call light at hands reach, IVf patent
--- NOTE | 2019-09-05 06:16 | NUR ---
PT TAKES MEDS WITH APPLESAUCE, ASPIRATION PRECAUIONS IN PLACE. MEDICATED WITH SCHEDULED TYLENOL, MORPHINE AND TORADOL PER ABD PAIN. FAIR TO GOOD PAIN RELIEF. aBD W [address], UMBILICAL AREA LAP SITE REINFORCED DUE TO MODERATE AMOUNT OF DRAINAGE. iNCONTINENT OF URINE, BARRIER CREAM APPLIED. PT MOAND AND GROANS AND SOMETIMES SPEECH IS GARBLE, COOP WITH PROCEDURES, ALL PROCEDURES EXPLAINED PRIOR TO. REPOSITIONED Q2H. SCDS IN PLACE. IVF INFUSING. PT HAS CONTRACTURES OF HANDS, FEET AND LEGS, AFEBRILE AND NO EMESIS NOTED THIS SHIFT. CURRENTLY RESTING, HAS BEEN RESTLESS MUCH OF THIS SHIFT. CALL LIGHT AND FLUIDS AT BEDSIDE, BED ALARM ON
--- NOTE | 2019-09-05 06:58 | NUR ---
pt resting peacefully, vital signs defered at this time, am rn and noc charge nurse notified
--- NOTE | 2019-09-05 07:30 | NUR ---
RECIEVED REPORT FROM DEYVI, PT HAS BEEN AWAKE ON OFF ALL NOC, SLEEPING AT THIS TIME, REPORT RECIEVED PT HAS BEEN HAVING RED DRAINAGE FROM UMBILICAL INCISION WITH ANY MOVEMENT, PT HAS GAUZE DRSG, AND AGAIN REINFORCED WITH ABD, ATTENDS IS DRY, REQUIRED MORPHINE DURING NOC FOR PAIN CONTOL, RESP UNLABORED AT THIS TIME.
--- NOTE | 2019-09-05 08:45 | NUR ---
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
--- NOTE | 2019-09-05 09:00 | NUR ---
CAREGIVER FROM [facility] HERE, PT IS MUCH CALMER NOW AND SEEMED TO RECOGNIZE HER, CARTOONS PLACED ON TV AND PT REMAINS CALM, DRSG IS CDI TO UMBILICUS. COFFEE PROVIDED FOR CAREGIVER.
--- NOTE | 2019-09-05 13:41 | NUR ---
Attempted to visit pt, requested by Rn to not visit at this time as pt has been upset and yelling today and has gone to sleep. Update received, Dr. Hernandez will see and may dc to [facility] with cg today.
[2019-09-05] MEDS ORDERED: TYLENOL EXTRA500 MG PO (16:00)
--- NOTE | 2019-09-05 16:14 | NUR ---
DR MILLER IN TO SEE PT, DC ORDERS RECIEVED TO RETURN TO [facility], REVIEWED AND DEMONSTRATED DRESSING CHANGE TO CAREGIVER-OSWALD. VERBALIZES UNDERSTANDING OF MEDICATIONS AND DRESSING CHANGE.
--- NOTE | 2019-09-05 18:36 | OR ---
[facility] [address], [place] [address] Signed DATE OF OPERATION: 09/04/2019 SURGEON: Fadi Miller MD PREOPERATIVE DIAGNOSES: 1. Episodic paroxysmal abdominal pain, acute on chronic. 2. Chronic idiopathic constipation and mentally retarded and developmentally delayed. 3. CT scan findings of free intraperitoneal air (diffuse and subtle). POSTOPERATIVE DIAGNOSES: 1. No evidence of intraabdominal abscess, inflammation, fluid collection, or obvious intraperitoneal air. 2. Normal small bowel, colon, liver except for redundant left and sigmoid colon. 3. Appendix not acutely inflamed. PROCEDURES PERFORMED: 1. Extensive diagnostic laparoscopy with peritoneal lavage. 2. Laparoscopic appendectomy. ANESTHESIA: General endotracheal, Radha Ayoub CRNA, and local 20 mL of 0.25% Marcaine with epinephrine. INDICATION: This 48-year-old developmentally delayed white man has been institutionalized for many years. He is known to have chronic idiopathic constipation and episodic fecal impaction. He has a very vigorous bowel regimen. He has good caretakers who watch after him quite closely. He was noted in the past four days to have increasing paroxysms of abdominal pain, though his bowel function appeared to be preserved and concern was maintained for sudden change of abdominal pain. He was presented to the emergency room and was evaluated fully and thought to have severe and marked diffuse abdominal pain and possibly peritonitis. On that basis, a CT scan was performed, which showed various pockets of free intraperitoneal air, but without sign of obvious source. There was no sign of diverticulosis. He did have a fair amount of stool in the rectosigmoid as he has in the past. There is no sign of perforated ulcer. There was even some free air that was adjacent to the right lower pole of the kidney. Clinical examination that I performed showed essentially no tenderness whatsoever, though he had been treated with some medication. He was admitted to my service for Electronically Signed By: FADI MILLER MD 09/05/19 0589 PATIENT NAME: YESENIA BRISCOE OPERATIVE REPORT DATE OF : 74 REPORT #: [id number] PHYSICIAN: FADI MILLER MD PCP: FRANCISCA LOFTON MD REPORT IS CONFIDENTIAL AND NOT TO BE RELEASED WITHOUT AUTHORIZATION [facility] [address] [place], [place] [address] Signed observation. His lab studies have been normal including white count, amylase, lipase, and so on. On close observation, he has episodically had paroxysmal abdominal pain, which has been his baseline for many years. He also had some episodes of diaphoresis, but we are told by his caretakers that this is not uncommon for him chronically. His lab studies continue to show no elevated white count or other similar abnormalities. His clinical exam remains completely benign. Mindful of the various causes of free intraperitoneal air and extreme difficulty in providing for examination and reliable history of any sort. In his case, I have recommended to his caretakers and islas of workers compensation attorney that laparoscopic evaluation be undertaken. If generalized peritonitis is noted, fluid collection, or other abnormality, then remedy by whatever means would be undertaken. We discussed the potential of possible subtotal colectomy with anastomosis and other various approaches to potential findings including my concern for possible stercoral perforation of the rectosigmoid given his past history. All parties involved understand and wished to proceed. FINDINGS: There is no sign of inflammatory fluid or inflammatory changes within the abdominal cavity. Certainly, no abscess. The liver appeared normal. The small bowel was run from the ligament of Treitz to the terminal ileum and was completely normal. There was no sign of perforated duodenal or gastric ulcer. The colon itself on the right side was normal. The sigmoid, transverse, and left colonic segments were quite redundant, but not tensely distended with stool nor dilated in anyway. Retroperitoneum grossly appeared normal. The appendix had mild chronically inflamed appearance, though I would not call this acute appendicitis by any means. Appendectomy was performed so as to clarify future episodes of abdominal pain, which are highly predictable based on his prior history. DESCRIPTION OF PROCEDURE: The patient was brought to the operating room, given a general endotracheal anesthetic. Preoperative antibiotic cefoxitin had been given. Sequential compression stockings were used and heparin subcutaneously administered. A Kirkland catheter was placed. The abdomen was clipped and prepared with chlorhexidine solution and draped sterilely. He has a very thin abdominal wall. An infraumbilical incision was made and using an open Mayelin cannula technique, pneumoperitoneum achieved to a level of 14 mmHg of carbon dioxide gas. Intraabdominal inspection showed no sign of ascites or carcinomatosis. The liver appeared normal. There was no sign of inflammatory fluid or other issues. An epigastric 12 mm port was placed just to the right of the midline and camera placed to that site. Single instrument manipulation of intraabdominal contents was undertaken and in the right lower quadrant, a 5 mm trocar was then placed. With two-hand manipulation, the cecum and right colon were elevated and evaluated. The terminal ileum appeared Electronically Signed By: FADI MILLER MD 09/05/19 1836 PATIENT NAME: YESENIA BRISCOE OPERATIVE REPORT DATE OF : 74 REPORT #: [id number] PHYSICIAN: FADI MILLER MD PCP: FRANCISCA LOFTON MD REPORT IS CONFIDENTIAL AND NOT TO BE RELEASED WITHOUT AUTHORIZATION [facility] [address] [place], [place] [address] Signed normal. The small bowel was run from the terminal ileum more proximally to the ligament of Treitz showing no sign of Meckel diverticulum. No sign of ischemia, inflammatory bowel disease, or other problems. Some fluid-filled loops were noted and considered normal. Attention was turned to the left side of the abdomen. There was somewhat redundant rectosigmoid and sigmoid colon, but no sign of tense distention, certainly no sign of stercoral ulcer or perforation. I saw no diverticulosis particularly. Pelvis appeared normal. Re-examination throughout showed no sign of fluid collection, inflammatory foci, or other issues. Examination of the proximal GI tract showed no sign of purulent collection. No sign of perforated ulcer or other issue. Mindful of the lack of definitive reason for any free intraperitoneal air and mindful of his longstanding paroxysmal abdominal pain likely related to idiopathic constipation, was deemed appropriate to consider appendectomy. The appendix did have a mildly chronically inflamed appearance, but certainly not acutely inflamed. The appendix was elevated and a window created between the appendix the mesoappendix, and the base of the appendix was transected, flushed with the cecum with an Endo-MINOO stapling device. The mesoappendix was similarly secured. There was no untoward bleeding. Appendix was withdrawn into the infraumbilical port site offloaded after photographs taken. Irrigation was undertaken throughout the abdomen providing peritoneal lavage. Excess irrigation fluid was suctioned free. The trocars were removed under direct visualization showing no sign of bleeding. The infraumbilical epigastric and right lower quadrant fascial incisions were reapproximated with interrupted 0 Vicryl suture. Skin closed with interrupted 3-0 Vicryl. Steri-Strips were applied. The patient was rather prolonged and allowing for extubation due to diminished respiratory drive, but ultimately was able to be extubated and transferred to recovery room in good condition. Fadi Miller MD JM/MODL /[id number] cc: Francisca Lofton MD Dr. Electronically Signed By: FADI MILLER MD 09/05/19 1836 PATIENT NAME: YESENIA BRISCOE [place] OPERATIVE REPORT DATE OF : 74 REPORT #: [id number] PHYSICIAN: FADI MILLER MD PCP: FRANCISCA LOFTON MD REPORT IS CONFIDENTIAL AND NOT TO BE RELEASED WITHOUT AUTHORIZATION [address] [address] Signed Copies: FRANCISCA LOFTON MD ~ Electronically Signed By: FADI MILLER MD 09/05/19 1836 PATIENT NAME: YESENIA BRISCOE OPERATIVE REPORT DATE OF : 74 REPORT #: [id number] PHYSICIAN: FADI MILLER MD PCP: FRANCISCA LOFTON MD REPORT IS CONFIDENTIAL AND NOT TO BE RELEASED WITHOUT AUTHORIZATION
--- NOTE | 2019-09-05 18:36 | DS ---
[facility] [address] [place], [place] [address] Signed ADMISSION DATE: 09/03/2019 DISCHARGE DATE: 09/05/2019 REASON FOR ADMISSION: This 48-year-old mentally disabled white man was accompanied by his caregiver and has been empirically treated for urinary tract infection in the past few days. He presented to the emergency room having unrelenting abdominal pain, which was considered different than his usual chronic abdominal pain by his caregivers. The patient is noncommunicative and therefore unreliable as regards to history. He was improved with morphine intravenously administered. A CT scan was performed in the emergency room, which showed him to have a fair amount of stool within the rectosigmoid and sigmoid colon, but surprisingly, some areas of free air throughout the abdomen. Given these findings, he was admitted for further evaluation and care. PERTINENT PHYSICAL EXAMINATION: Shows a very thin white man who is not particularly relational necessarily. He is certainly nonverbal particularly. He at the time of my evaluation, appeared to be quite comfortable indeed. He had no tachypnea, tachycardia, or abdominal distention. Abdominal palpation was completely benign with no sign of tenderness even. His mucous membranes were reasonably moist. LABORATORY STUDIES: Showed a white count of only 5.1, hematocrit of 38.3, platelets 155,000. Differential was normal. Bicarb 32. Liver enzymes normal. Urinalysis showed only trace amount of urinary blood and trace leukocyte esterase. HOSPITAL COURSE: He was admitted and given intravenous fluids and simply observed. Antibiotics were not initiated despite the findings on CT scan. I reviewed the CT scan with radiologist. This confirmed small areas of free air including the right pericolic area, the subdiaphragmatic area, the right perianal area, but the area where his fecal load was in the rectosigmoid and sigmoid showed no sign of inflammation, and certainly no diverticula or abscess. He was continuously monitored and examined and showed no evidence of progression of his problem. Consideration was made for simply observing, but given the relatively high risk for a stercoral ulceration with perforation, I have recommended to his care team laparoscopy for diagnosis and treatment as appropriate. This was performed on September 04, 2019. Findings showed no evidence of free air, particularly no sign of inflammatory problems. The small bowel was run from the terminal ileum to the ligament of Treitz, which was normal. The colon did not show excess distention, certainly no ischemia, no Electronically Signed By: FADI MILLER MD 09/05/19 1836 PATIENT NAME: YESENIA BRISCOE DISCHARGE SUMMARY DATE OF : 74 REPORT #: [id number] PHYSICIAN: FADI MILLER MD PCP: FRANCISCA LOFTON MD REPORT IS CONFIDENTIAL AND NOT TO BE RELEASED WITHOUT AUTHORIZATION [facility] [address] [place] [id number] Signed ulcer, no abscess, no free air. His appendix did have mild chronic inflammatory changes. An appendectomy was performed, though that was not a dominant cause of his issue, I am sure. Postoperatively, he resumed his usual activity and usual activity levels. The patient is rather busy person, particularly at night and verbalizes rather strenuously on a baseline level. By time of discharge, he is tolerating his oral intake, his medicines. Appears to have no tenderness, no pain, and although there was a small amount of drainage at the umbilicus, this is resolved largely. He is cleared for discharge back to his assisted care living in the [facility]. DISCHARGE MEDICATIONS: His usual medicines includin. [place] 8 mEq/5 mL b.i.d. 2. Dulcolax one tablet p.o. t.i.d. 3. Benefiber one powder pack p.o. t.i.d. 4. Amitiza 24 mcg capsule b.i.d. 5. Zyprexa 15 mg at bedtime. 6. Lactulose 20 g in syrup every 4 hours as needed for constipation. 7. Ondansetron ODT 4 mg sublingual as needed for nausea. 8. Paroxetine (Paxil) 10 mL of a 10 mg/5 mL suspension b.i.d. 9. MiraLAX 17 g p.o. daily. 10. Bisacodyl 10 mg suppository weekly. 11. Divalproex 250 mg tablets p.o. b.i.d. 12. Primidone (Mysoline) 50 mg tablets three tabs p.o. daily for tremors. He will start Tylenol Extra Strength 1000 mg p.o. q.6 hours as needed for pain. He will hold off on amoxicillin and try methylprednisolone with sulfamethoxazole that was prescribed for presumed urinary tract infection. DISCHARGE DIAGNOSES: 1. Paroxysms of abdominal pain worse than usual. CT scan findings of free air. Laparoscopic findings showing no sign of acute pathology. 2. Status post laparoscopic evaluation and laparoscopic appendectomy. 3. Developmental delay. 4. Seizure disorder. 5. Chronic constipation. FOLLOW-UP PLANS: A phone followup will be arranged so as to minimize his transport time. If there are other problems, he will let us know. Wound care will include a change of gauze dressing to the umbilicus as needed. Electronically Signed By: FADI MILLER MD 09/05/19 1836 PATIENT NAME: YESENIA BRISCOE PREETI DISCHARGE SUMMARY DATE OF : 74 REPORT #: [id number] PHYSICIAN: FADI MILLER MD PCP: FRANCISCA LOFTON MD REPORT IS CONFIDENTIAL AND NOT TO BE RELEASED WITHOUT AUTHORIZATION [address] [place], [place] [address] Signed MD PAYAM Albert/LILIL /[id number] cc: Francisca Lofton MD Copies: FRANCISCA LOFTON MD ~ Electronically Signed By: FADI MILLER MD 09/05/19 1836 PATIENT NAME: YESENIA BRISCOE DISCHARGE SUMMARY DATE OF : 74 REPORT #: [id number] PHYSICIAN: FADI MILLER MD PCP: FRANCISCA LOFTON MD REPORT IS CONFIDENTIAL AND NOT TO BE RELEASED WITHOUT AUTHORIZATION
--- NOTE | 2019-09-05 18:37 | HP ---
[facility] [address] [facility] [place] [address] Signed ADMISSION DATE: 09/03/2019 REASON FOR ADMISSION: Four days of abdominal pain. CT scan findings of free air. HISTORY OF PRESENT ILLNESS: This 48-year-old mentally disabled white man is accompanied by his caregiver. He has been empirically treated for "UTI" for the past few days with antibiotics after evaluation at the [facility]. Notably, a urinary evaluation in the emergency room today shows no sign of urinary tract infection. He has been observed by his caretakers to have extreme abdominal distress for the past four days, which prompted his evaluation there. His primary care physician is Dr. Lofton. His presentation to the emergency room today showed him to have unrelenting abdominal pain, which was actually well managed with administration of morphine intravenously. His white count was normal at 5.1 with hematocrit of 38.3 and a Chem profile, which was normal. His urinalysis, as noted, was also normal. He did have 5 white cells per high-power field. The patient is perpetually troubled by chronic constipation, for which, he has an elaborate bowel regimen. Indeed, I have admitted him for fecal impaction management in 2017, which included colonoscopy after a disimpaction. This was on May 21, 2017. He was last in the hospital in April of 2019 under the care of Dr. Billings for aspiration type pneumonia. His other medical issues include severe developmental delay and chronic idiopathic constipation. Due to his severe abdominal pain, evaluation undertaken by Dr. Milton in the emergency room included a CT scan. This showed findings significance of separate areas of free air in the abdomen, not massive free air generally speaking, but certainly areas particular in the right pericolic gutter, the right hemidiaphragm area. Additionally, he is noted to have marked stool filling of the rectosigmoid and sigmoid colon. He does not appear to have diverticulosis and none were noted on his prior colonoscopy. The lungs appeared clear. The liver was normal. Kidneys were actually normal, though there was some perinephric free air near the right kidney. He is admitted for further evaluation and care. Review of systems is noncontributory. He is not able to verbalize or communicate well. His clinical pharmacy specialist is available and notes that she having dealt with him for the past 2 years has "never seen him this way." He is often in some distress of some type, but not as severely as she saw in the past few days. Electronically Signed By: FADI MILLER MD 09/05/19 1837 PATIENT NAME: YESENIA BRISCOE HISTORY AND PHYSICAL DATE OF : 74 REPORT #: [id number] PHYSICIAN: FADI MILLER MD PCP: FRANCISCA LOFTON MD REPORT IS CONFIDENTIAL AND NOT TO BE RELEASED WITHOUT AUTHORIZATION [address] [address] Signed Of special note, I visited with Vidal Fortune who is the on-health unit coordinator at his place of residence as part of the [facility]. The patient is said to be his "own guardian." His medical medicare sales executive is Delilah Monteiro at phone #[phone]. PHYSICAL EXAMINATION: This is a thin white man who is episodically crying out, but does not actually look in distress between those episodes. His mucous membranes are reasonably moist. Trachea is midline. Chest shows normal respiratory excursion without tachypnea. Abdomen is completely soft and without focal tenderness to my surprise. I feel no fecaloma or other abdominal mass. He has some contractures of his lower extremities and is somewhat misshapen generally. DIAGNOSTIC DATA: His lab studies show a white count of only 5.1, hematocrit of 38.3, platelets 155,000. Chem profile is essentially normal. Bicarb is 32. Liver enzymes normal. Urinalysis normal except for trace of urine blood and trace leukocyte esterase and white cells 5 per high-power field. I have reviewed the CT scan personally with the radiologist, Dr. Prieto. ASSESSMENT: Though he clinically appears surprisingly well at this time, he does have extraperitoneal free air in small amounts distributed throughout the abdomen. He has very large fecal impaction noted, but there appears to be no edema of the rectosigmoid and no diverticula. Examination of the periduodenal and gastric areas show no sign of free air to suggest perforated ulcer. The possibility of a limited perforation with self sealing is a consideration and his treatment recently for presumed urinary tract infection may have contributed to that improvement. He is impressively difficult patient as regards to personal history as he poorly verbalizes and has essentially no reliable communication as to his needs. His clinical pharmacy specialist, who is quite reliable, does note that he has had issues for the past few days. I think the safest approach present is to admit to the hospital for continued treatment and he may ultimately require exploration, either laparoscopically or open. I will review further with his healthcare advisor, Delilah Monteiro, should operative intervention be necessary. Electronically Signed By: FADI MILLER MD 09/05/19 0037 PATIENT NAME: YESENIA BRISCOE HISTORY AND PHYSICAL DATE OF : 74 REPORT #: [id number] PHYSICIAN: FADI MILLER MD PCP: FRANCISCA LOFTON MD REPORT IS CONFIDENTIAL AND NOT TO BE RELEASED WITHOUT AUTHORIZATION [address] [place], [place] [address] Signed Fadi Miller MD JM/MODL /[id number] cc: Dr. Yoan Lofton MD Copies: FRANCISCA LOFTON MD ~ Electronically Signed By: FADI MILLER MD 09/05/19 1837 PATIENT NAME: YESENIA BRISCOE HISTORY AND PHYSICAL DATE OF : 74 REPORT #: [id number] PHYSICIAN: FADI MILLER MD PCP: FRANCISCA LOFTON MD REPORT IS CONFIDENTIAL AND NOT TO BE RELEASED WITHOUT AUTHORIZATION
--- NOTE | 2019-09-08 17:53 | PATH ---
[facility] [address] [place], [place] [address] Signed SPECIMEN(S): A APPENDIX SPECIMEN SOURCE: A. APPENDIX CLINICAL HISTORY: Chronic constipation; extraperitoneal free air in abdomen; fecal impaction. FINAL PATHOLOGIC DIAGNOSIS: Appendix, appendectomy: - Acute appendicitis. NAL:emb:C2NR MICROSCOPIC EXAMINATION: Histologic sections of all submitted blocks are examined by light microscopy. These findings, together with the gross examination, support the pathologic diagnosis. GROSS DESCRIPTION: The specimen, labeled "LE, appendix," is received in formalin and consists of Specimen: Appendix with mesoappendix. Dimensions: 8.0 cm in length by 0.8 cm in diameter cm. Serosa: Normal. Perforation: Not grossly identified. Inking: Staple line is inked black. Mucosa: Dilated. Fecalith: Present. Additional: None. Teacher Education Director sections are submitted in cassette (A1). AT (under the direct supervision of a pathologist) The Gross Description was prepared using a voice recognition system. The report was reviewed for accuracy; however, sound-alike word errors, addition and/or deletions may occur. If there is any question about this report, please contact Client Services. PERFORMING LABORATORY: The technical component was performed by [facility], [address] [place] [id number] ([employer]: Angelica Bolanos MD; CLIA# [id number]). [facility] [address] [address] ([employer]: Antwon Morales MD; CLIA# PATIENT NAME: YESENIA BRISCOE PATHOLOGY DATE OF : 74 REPORT #: [id number] PHYSICIAN: JM PATHOLOGY PCP: FRANCISCA MCGARRY MD REPORT IS CONFIDENTIAL AND NOT TO BE RELEASED WITHOUT AUTHORIZATION [facility] [address] [place] [address] [place], [place] [address] Signed [id number]). Diagnostician: Ban Watts MD Pathologist Electronically Signed 09/08/2019 Copies: ~ PATIENT NAME: YESENIA BRISCOE PATHOLOGY DATE OF : 74 REPORT #: [id number] PHYSICIAN: JM PATHOLOGY PCP: FRANCISCA MCGARRY MD REPORT IS CONFIDENTIAL AND NOT TO BE RELEASED WITHOUT AUTHORIZATION
== END 2019-09-05 17:00 | disposition home or self-care (01) | DRG 343 ==
LOC: ED 08:58 → MS 11:22
PROVIDERS: ADMIT Surgery
PROC: 3E1M38Z Irrigation of Peritoneal Cavity using Irrigating Substance, Percutaneous Approach (ICD-10-PCS; principal; 2019-09-04 15:00)
PROC: 0DTJ4ZZ Resection of Appendix, Percutaneous Endoscopic Approach (ICD-10-PCS; 2019-09-04 15:00)
DX: R10.9 Unspecified abdominal pain (principal); K59.04 Chronic idiopathic constipation; F79 Unspecified intellectual disabilities; R62.50 Unspecified lack of expected normal physiological development in childhood; G89.29 Other chronic pain; G40.909 Epilepsy, unspecified, not intractable, without status epilepticus; Z79.899 Other long term (current) drug therapy
CPT/HCPCS: 00840; 36415; 51701; 74177; 80048; 80053; 81001; 83690; 85025; 99285-25; J0131; J0330; J0694; J1100; J1644; J1885; J2270; J2300; J2310; J2370; J2405; J2704; J2765; J3010; J7030; J7060; J7121; Q9967

== ENCOUNTER 2019-09-07 01:05 | Inpatient (IN) | payer OTHER ==
[~2019-09-07] VITALS: Ht 162.6 cm; Wt 56.1 kg
[~2019-09-07 01:05] MED LIST changes: +DIVALPROEX SOD250 MG PO; +MYSOLINE50 MG PO; +SULFAMETHOXAZO473 M2 PO; +TYLENOL EXTRA500 MG PO
--- OUTSIDE RECORDS SUMMARY | 2019-09-07 01:08 | XMS ---
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[employer] No recent Security Events currently on file CRITERIA MET - [facility] - Has Care Guidelines - History of Sepsis Dx - [facility] - 2 Visits in 30 Days CARE PROVIDERS FRANCISCA LOFTON Family Medicine 12/06/2018-Current PHONE: [phone] DR INGRID LOFTON Primary Care Current PHONE: [phone] K[facility]ela, [facility] Provider Current PHONE: [phone] Guidelines Source: Kartela - [place] Guidelines Date: 01/07/2019 Care Coordination: Mental health services provided by Kartela.\T\nbsp; Please contact Kartela with mental health concerns.\T\nbsp; [facility]: [phone]\T\ nbsp; Rob: [phone]. Care History Medical/Surgical 02/06/2018 [facility] - Patient can be seen same [...] ED please contact Community Health WorkerMena at [phone]. These are guidelines and the provider should exercise clinical judgment when providing care. Behavioral 04/24/2018 Kartela - Ang Veliz has worked with Kartela for mental health medication management.\ T\nbsp; Please contact Kartela with mental health concerns. [phone] E.D. VISIT COUNT (12 MO.) 6 [facility] TOTAL 6 NOTE: Visits indicate total known visits. ED/UCC VISIT TRACKING (12 MO.) 09/07/2019 01:05 [facility] TYPE: Emergency COMPLAINT: - VOMITING,NAUSEA 09/03/2019 09:00 [facility] TYPE: Emergency COMPLAINT: - POSSIBLE UTI 04/16/2019 13:42 [facility] TYPE: Emergency COMPLAINT: - NOT FEELING WELL 03/11/2019 22:40 [facility] TYPE: Emergency COMPLAINT: - VOMITING DIAGNOSES: - Schizophrenia, unspecified - Other residential (current) drug therapy - Vomiting, unspecified - [...] right toe(s) - Schizophrenia, unspecified - Other residential (current) drug therapy INPATIENT VISIT TRACKING (12 MO.) 09/03/2019 11:22 [facility] TYPE: Medical Surgical COMPLAINT: - ABDOMINAL PAIN, FREE AIR 04/16/2019 13:43 [facility] TYPE: Observation COMPLAINT: - ASPIRATION DIAGNOSES: - Pneumonitis due to inhalation of food and vomit - Unspecified intellectual disabilities - Bipolar disorder, unspecified - Sepsis, unspecified organism Sepsis, u - Other roasterman (current) drug therapy - Post-traumatic stress disorder, unspecified - Personal history of other mental and behavioral disorders - Chronic idiopathic constipation [email or web address]
--- NOTE | 2019-09-09 07:44 | HP ---
[facility] [address] [place], [place] [address] Signed ADMISSION DATE: 09/07/2019 REASON FOR ADMISSION: Apparent bowel obstruction or ileus. HISTORY OF PRESENT ILLNESS: This 48-year-old white man has advanced mental retardation, developmental delay and lives in a group facility at the [facility]. He recently was discharged from the hospital on September 05, having undergone exploratory laparoscopy with incidental appendectomy on September 04, 2019. He has recalled that he presented to the hospital four days prior to that admission with increasing abdominal pain and a CT scan that was performed in the emergency room at this time of evaluation showed intraabdominal free air, variously placed. He was nontender by the time I saw him and doing well. However, given his difficulty in evaluation due to his underlying disability, I had recommended laparoscopy. He did undergo laparoscopy. He was found to have no sign of abscess, inflammatory fluid, or other abnormality. The appendectomy was performed on the high probability that he would have abdominal pain again. It is also recalled that he has chronic idiopathic constipation, for which, he has a very elaborate bowel regimen. He had done well initially at home, but then began having episodes of crying out, "more than usual" believed from abdominal pain. The patient has this behavior quite a bit of time already. He was noted however to have vomiting at least four episodes and chronic loose stools related to his bowel regimen were noted. On that basis, lab studies were obtained, which showed normal CBC and Chem profile and urinalysis. A CT scan was performed showing a very prominent dilated fluid-filled stomach, fair amount of stool in the colon and rectum, and some soft tissue gas throughout visualized abdominal wall related likely to recent laparoscopy. He had no abdominal wall fluid collection or hematoma. A distended bladder was noted and a Kirkland catheter was placed. The dilated stomach also was accompanied by dilated small bowel, primarily jejunum in the left abdomen with a gradual transition with relative decompression of the ileum. This was considered either postoperative ileus or partial or developing small-bowel obstruction. He is admitted for further evaluation and care on that basis. He is noncommunicative. He has required some Ativan for sedation. PHYSICAL EXAMINATION: He is somnolent right now. Nasogastric tube was in place draining some bilious fluid. He has no sign of respiratory distress. Trachea is midline. Abdomen is nondistended Electronically Signed By: FADI MILLER MD 09/09/19 0744 PATIENT NAME: YESENIA BRISCOE HISTORY AND PHYSICAL DATE OF : 74 REPORT #: [id number] PHYSICIAN: FADI MILLER MD PCP: FRANCISCA LOFTON MD REPORT IS CONFIDENTIAL AND NOT TO BE RELEASED WITHOUT AUTHORIZATION [facility] [address] [place] [address] Signed and flat. Palpation throughout showed no sign of guarding. There is no distention whatsoever. There is no mass. Extremities show no clubbing, cyanosis, or edema. DIAGNOSTIC DATA: I reviewed the CT scan that was performed showing a markedly dilated stomach. Decompression of stomach was accomplished by nasogastric tube placement. Additionally ordered another x-ray today and I have reviewed those films myself, which shows nonspecific gas distributed throughout the abdomen. No sign of dilated stomach. There appears to be colonic air as well. Nasogastric tube appears to be in reasonable position. ASSESSMENT: Laparoscopy was performed to assess an etiology for free intraperitoneal air noted on CT scan for increasing abdominal pain, despite a clinically benign clinical exam and no elevated white count. Incidental appendectomy was performed on the high probability that his chronic abdominal pain would have acute exacerbation (which he now has). The appendix itself may have been mildly chronically inflamed, but was definitely not an etiology to his underlying problem otherwise. He now has dilated stomach and proximal bowel, which may or may not represent ileus or the possibility of course of formation of early bowel obstruction despite a laparoscopic approach to the operation. Continued nasogastric tube decompression would be most appropriate. We will consider for a small-bowel follow-through with Gastrografin and barium tomorrow via his nasogastric tube. In the meantime, his head of bed will remain elevated as he has previous history of aspiration pneumonia and he would be at high risk for that in any case. DVT prophylaxis is appropriate as well. MD PAYAM Albert/MODL /[id number] cc: Robert Pereira MD Electronically Signed By: FADI MILLER MD 09/09/19 0744 PATIENT NAME: YESENIA BRISCOE HISTORY AND PHYSICAL DATE OF : 74 REPORT #: [id number] PHYSICIAN: FADI MILLER MD PCP: FRANCISCA LOFTON MD REPORT IS CONFIDENTIAL AND NOT TO BE RELEASED WITHOUT AUTHORIZATION [address] [address] Signed Francisca Lofton MD Copies: ROBERT PEREIRA MD, JONATHAN MD ~ Electronically Signed By: FADI MILLER MD 09/09/19 0744 PATIENT NAME: YESENIA BRISCOE [place] HISTORY AND PHYSICAL DATE OF : 74 REPORT #: [id number] PHYSICIAN: FADI MILLER MD PCP: FRANCISCA LOFTON MD REPORT IS CONFIDENTIAL AND NOT TO BE RELEASED WITHOUT AUTHORIZATION
--- NOTE | 2019-09-10 08:21 | DS ---
[facility] [address] [place], [place] [address] Signed ADMISSION DATE: 09/07/2019 DISCHARGE DATE: 09/09/2019 REASON FOR ADMISSION: This 48-year-old white man with advanced mental retardation and developmental delay, lives in a group facility at the [facility]. He was recently discharged from hospital on September 05, having undergone exploratory laparoscopy for free air and incidental appendectomy on September 04, 2019. Notably, his final pathology report did describe appendicitis though it was not clearly a diagnosis at time of exploration. He was discharged to home, but then had a vomiting which was persistent. He is known to have chronic idiopathic constipation. Because of his vomiting, he was taken back to the emergency room where he was evaluated and found to have a markedly dilated stomach and findings suggestive of small bowel obstruction with transition point. This was considered quite unusual considering a laparoscopic approach to his operation. He is admitted for further evaluation and care. PERTINENT PHYSICAL EXAM: He did not look toxic. He has grimaces and groaning and so forth as per usual. A nasogastric tube decompressed considerable amount of fluid from the stomach. The abdomen was nontender. An incision was healing well. There was no sign of hernia or anything of that sort. HOSPITAL COURSE: He was maintaining with nasogastric tube decompression and given intravenous fluids. Followup abdominal x-ray showed nonspecific gas pattern. On September 08, 2019, he underwent a Gastrografin/barium small bowel follow-through, which showed complete passage of contrast through the intestine into the colon. He was just restarted on a liquid diet and ultimately a solid diet, which he tolerated well. By day of discharge, his abdomen was soft. Nasogastric tube was then withdrawn for over 24 hours without problem. He has had bowel movement and he is back to his baseline state. He is discharged home on that basis. DISCHARGE MEDICATIONS: Discharge medications will be unchanged, which will include lithium, bisacodyl, wheat dextrin, Amitiza, olanzapine, lactulose, paroxetine, MiraLAX, bisacodyl tabs, divalproex 250 p.o. b.i.d., primidone 150 mg daily for tremors, and Tylenol Extra Strength as needed for pain. DISCHARGE DIAGNOSIS: Postoperative ileus with spontaneous resolution confirmed by small bowel follow-through Electronically Signed By: FADI MILLER MD 09/10/19 0821 PATIENT NAME: YESENIA BRISCOE DISCHARGE SUMMARY DATE OF : 74 REPORT #: [id number] PHYSICIAN: FADI MILLER MD PCP: FRANCISCA LOFTON MD REPORT IS CONFIDENTIAL AND NOT TO BE RELEASED WITHOUT AUTHORIZATION [facility] [address] [place], [place] [address] Signed and bowel function. FOLLOWUP PLANS: He will return as needed. His primary physician remains Dr. Lofton. MD PAYAM Albert/GISELA /[id number] cc: Francisca Lofton MD Copies: FRANCISCA LOFTON MD ~ Electronically Signed By: FADI MILLER MD 09/10/19 0821 PATIENT NAME: YESENIA BRISCOE PREETI DISCHARGE SUMMARY DATE OF : 74 REPORT #: [id number] PHYSICIAN: FADI MILLER MD PCP: FRANCISCA LOFTON MD REPORT IS CONFIDENTIAL AND NOT TO BE RELEASED WITHOUT AUTHORIZATION
== END 2019-09-09 11:25 | disposition home or self-care (01) | DRG 390 ==
LOC: ED 01:05 → MS 01:06 → CCU 03:28 → ED 03:28 → MS 03:53 → CCU 03:53 → MS 09-08 19:43
PROVIDERS: ADMIT Surgery
DX: K91.30 Postprocedural intestinal obstruction, unspecified as to partial versus complete (principal); K59.04 Chronic idiopathic constipation; F20.9 Schizophrenia, unspecified; R62.50 Unspecified lack of expected normal physiological development in childhood; F79 Unspecified intellectual disabilities; Z74.01 Bed confinement status; Z79.899 Other long term (current) drug therapy; Z89.422 Acquired absence of other left toe(s); Z89.421 Acquired absence of other right toe(s)
CPT/HCPCS: 51701; 51702; 71045; 74018; 74019; 74177; 74250; 80053; 80164; 80178; 81001; 83690; 85025; 96361; 96375; 96376; 99285-25; G0378; J1170; J1885; J2060; J2405; J2550; J3480; J7030; J7121; Q9967

== ENCOUNTER 2019-10-30 15:54 | Emergency (ER) | payer OTHER ==
[~2019-10-30] VITALS: Ht 162.6 cm; Wt 56.1 kg
--- OUTSIDE RECORDS SUMMARY | 2019-10-30 15:56 | XMS ---
PreManage Notification: YESENIA BRISCOE Security Core Feeder Events No recent Security Events currently on file CRITERIA MET - [facility] Guidelines - History of Sepsis CARE PROVIDERS FRANCISCA LOFTON Family Medicine 12/06/2018-Current PHONE: Unknown DR INGRID LOFTON Primary Care Current PHONE: [phone] [facility] Mental Health Provider Current PHONE: [phone] Guidelines Source: [facility] Luciana Fry Guidelines Date: 01/07/2019 Care Coordination: Mental health services provided by [facility].\T\nbsp; Please contact [facility] with mental health concerns.\T\nbsp; George/Aiden Guevara: [phone]\T\ nbsp; Rob: [phone]. Care History Medical/Surgical 02/06/2018 [facility] - Patient can be seen same [...] Emergency Department visits in the last 12 months. Patient requires education on the scope and purpose of the ED as an acute care provider not a Primary Care Provider and should not be utilized for chronic conditions. If patient returns to ED please contact Community Health WorkerMena at [phone]. These are guidelines and the provider should exercise clinical judgment when providing care. Behavioral 04/24/2018 [facility] - Ang Veliz has worked with [facility] for mental health medication management.\ T\nbsp; Please contact [facility] with mental health concerns. [phone] E.D. VISIT COUNT (12 MO.) 7 [facility] TOTAL 7 NOTE: Visits indicate total known visits. ED/UCC VISIT TRACKING (12 MO.) 10/30/2019 15:54 [facility] [place] TYPE: Emergency COMPLAINT: - CONSTIPATION 09/07/2019 01:05 [facility] [place] TYPE: Emergency COMPLAINT: - SMALL BOWEL OBSTRUCTION 09/03/2019 09:00 [facility] [place] TYPE: Emergency COMPLAINT: - POSSIBLE UTI 04/16/2019 13:42 [facility] [place] TYPE: Emergency COMPLAINT: - NOT FEELING WELL 03/11/2019 22:40 [facility] [place] TYPE: Emergency COMPLAINT: - VOMITING DIAGNOSES: - Schizophrenia, unspecified - Other skilled nursing (current) drug therapy - Vomiting, unspecified - Constipation, unspecified - Hematemesis 01/05/2019 00:30 [facility] [place] TYPE: Emergency COMPLAINT: - VOMITING DIAGNOSES: - Schizophrenia, unspecified - Vomiting, unspecified 12/05/2018 16:23 [facility] [place] [place] TYPE: Emergency COMPLAINT: - VOMITING DIAGNOSES: - Retention of urine, unspecified - Vomiting, unspecified - Urinary tract infection, site not specified - Acquired absence of other left toe(s) - Acquired absence of other right toe(s) - Schizophrenia, unspecified - Other skilled nursing (current) drug therapy INPATIENT VISIT TRACKING (12 MO.) 09/07/2019 15:11 [facility] [place] TYPE: Medical Surgical COMPLAINT: - SMALL BOWEL OBSTRUCTION DIAGNOSES: - Postproc intestinal obst, 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 versus complete - Chronic idiopathic constipation - Schizophrenia, unspecified - Unspecified intellectual disabilities - Other keno terminal operator (current) drug therapy - Acquired absence of other left toe(s) - Bed confinement status - Postproc intestinal obst, 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 versus complete - Unsp lack of expected normal physiol dev in childhood - Other keno terminal operator (current) drug therapy - Acquired absence of other right toe(s) - Unsp lack of expected normal physiol dev in childhood - Acquired absence of other right toe(s) - Schizophrenia, unspecified - Chronic idiopathic constipation - Acquired absence of other left toe(s) - Bed confinement status - Unspecified abdominal pain - Unspecified intellectual disabilities 09/03/2019 11:22 [facility] [place] TYPE: Medical Surgical COMPLAINT: - ABDOMINAL PAIN, FREE AIR DIAGNOSES: - Unspecified intellectual disabilities - Unspecified abdominal pain - Other chronic pain - Chronic idiopathic constipation - Other chronic pain - Chronic idiopathic constipation - Epilepsy, unsp, not intractable, without status epilepticus - Unsp lack of expected normal physiol dev in childhood - Other skilled nursing (current) drug therapy - Unsp lack of expected normal physiol dev in childhood - Other skilled nursing (current) drug therapy - Epilepsy, unsp, not intractable, without status epilepticus - Unspecified intellectual disabilities 04/16/2019 13:[address] [facility] [place] TYPE: Observation COMPLAINT: - ASPIRATION DIAGNOSES: - Pneumonitis due to inhalation of food and vomit - Unspecified intellectual disabilities - Bipolar disorder, unspecified - Sepsis, unspecified organism Sepsis, u - Other keno terminal operator (current) drug therapy - Post-traumatic stress disorder, unspecified - Personal history of other mental and behavioral disorders - Chronic idiopathic constipation [email or web address]
[2019-10-30] MEDS ORDERED: AMITIZA24 MCG PO (19:09)
[2019-10-30] MEDS ORDERED: FLEET ENEMA133 ML PR (20:37)
--- NOTE | 2019-10-31 15:50 | CONS ---
[facility] [address] [place], [place] [address] Signed DATE OF CONSULTATION: 10/30/2019 CONSULTING PHYSICIAN: Fadi Miller MD REQUESTING PHYSICIAN: Dr. Tolbert. PROBLEM: Pneumatosis of colonic wall at hepatic flexure, chronic constipation. HISTORY OF PRESENT ILLNESS: This 48-year-old white man has mental retardation and chronically ill generally speaking. I saw him only a few days ago in my office following a laparoscopic appendectomy for acute appendicitis performed in August. I have seen him previously in 2016 for significant constipation requiring cathartics, enemas, and ultimately decompressive colonoscopy. The patient was brought to the emergency room by [facility] having had "no bowel movement based on protocol." Specifically, he has not had a bowel movement since the October 27, now he does have a and elaborate arrangement of medications to sustain bowel movements. He has had no fever or chills. He is tolerating his usual oral medications. His nuclear security officer says he did not eat much tonight, however. He was evaluated and found to have a normal white count of 4.7. His differential was normal with 56% neutrophils. His hematocrit is 39.8. Chemistries were normal with normal liver enzymes as well. He additionally had a normal lactate performed upon my request at 0.7. It is notable that his laparoscopy in August was related to free intraperitoneal air noted on the CT scan for which laparoscopy was performed showing no specific perforation and allowing for laparoscopic lavage and incidental appendectomy. To my surprise somewhat the appendix was considered acute appendicitis. A CT scan that was performed in the emergency room showed intramural air at the hepatic flexure. There is a relatively large and distended rectum with air and some stool, but no sign of colonic obstruction proper. The rectal diameter is similar to previous CT scan performed. The patient is noted additionally to have thickening of the rectal wall as has been noted in the past. Electronically Signed By: FADI MILLER MD 10/31/19 1550 PATIENT NAME: YESENIA BRISCOE CONSULTATION DATE OF : 74 REPORT #: [id number] PHYSICIAN: FADI MILLER MD PCP: FRANCISCA MCGARRY MD REPORT IS CONFIDENTIAL AND NOT TO BE RELEASED WITHOUT AUTHORIZATION [facility] [address] [place], [place] [address] Signed PHYSICAL EXAMINATION: GENERAL: This is a thin white man accompanied by his usual nuclear security officer. We had a good discussion regarding his overall bowel issues and his recent dietary intake and so on. The patient does not look toxic in any way. He has episodic crying out as he always does even when in his good times. CHEST: Shows normal respiratory excursion. HEART: Regular. ABDOMEN: Gently palpated and is soft and nontender. There is no mass, no distention particularly. EXTREMITIES: Show no clubbing, cyanosis, or edema. ASSESSMENT: I have a long thought that the patient has dysfunctional enough colon that subtotal colectomy with ileoproctostomy might be a long-term solution to his chronic idiopathic constipation. His bowel regimen has been reviewed multiple times and adjusted accordingly. He does not appear to have a colonic obstruction particularly though he does have chronic dilation of the rectum and thickening of the rectum in part related to his chronic constipation problem almost certainly. He does not have small bowel distention to suggest obstruction either. The issue of intramural air (pneumatosis) of the hepatic flexure is notable and not uncommonly associated with chronic constipation issues. Though it can be considered a dire sign in some situations, mindful of his prior free intraperitoneal air from before I find it unlikely to be a serious worry at this time. This is especially so as he does not have abdominal tenderness, does not have a fever, does not have an elevated white count, and his lactate is normal. I think considering we are currently on a modified level of surgical intervention due to the global pandemic of the coronavirus and in preservation of hospital bed space for anticipated serious surge of respiratory distress patients that at this point enema therapy at home to relieve air and some stool would be most appropriate. Consideration for elective subtotal colectomy with ileoproctostomy should be undertaken when the confounding issues of this emergency state of affairs in our community has resolved more fully. It is noted by his nuclear security officer that he has a considerable amount of flatulence passing and I suspect his problem will resolve with perhaps even Fleet enemas. We will review this further with Dr. Milton, who is now the emergency room physician managing the patient. Electronically Signed By: FADI MILLER MD 10/31/19 7075 PATIENT NAME: YESENIA BRISCOE CONSULTATION DATE OF : 74 REPORT #: [id number] PHYSICIAN: FADI MILLER MD PCP: FRANCISCA MCGARRY MD REPORT IS CONFIDENTIAL AND NOT TO BE RELEASED WITHOUT AUTHORIZATION [address] [address] Signed Fadi Miller MD JM/MODL /[id number] cc: [facility] Copies: FRANCISCA MCGARRY MD ~ Electronically Signed By: FADI MILLER MD 10/31/19 1550 PATIENT NAME: YESENIA BRISCOE PREETI CONSULTATION DATE OF : 74 REPORT #: [id number] PHYSICIAN: FADI MILLER MD PCP: FRANCISCA MCGARRY MD REPORT IS CONFIDENTIAL AND NOT TO BE RELEASED WITHOUT AUTHORIZATION
== END 2019-10-30 20:58 | disposition home or self-care (01) ==
LOC: ED 15:54
DX: K59.00 Constipation, unspecified (principal); F20.9 Schizophrenia, unspecified; Z89.422 Acquired absence of other left toe(s); Z89.421 Acquired absence of other right toe(s); Z79.899 Other long term (current) drug therapy
CPT/HCPCS: 74177; 80053; 83605; 83690; 85025; 96375; 99284-25; J2270; J2405

== ENCOUNTER 2020-06-12 20:37 | Inpatient (IN) | payer OTHER ==
[~2020-06-12] VITALS: Ht 162.6 cm; Wt 51.0 kg
--- NOTE | ~2020-06-12 | OR ---
[facility] [address], [place] [address] Draft DATE OF OPERATION: 06/17/2020 SURGEON: aFdi Miller MD PREOPERATIVE DIAGNOSIS: Right posterolateral deep space knee abscess. POSTOPERATIVE DIAGNOSIS: Right posterolateral deep space knee abscess, not involving joint. PROCEDURES: 1. Incision and drainage of right posterior lateral knee area abscess. 2. Placement of yellow vessel loop, Seton. ANESTHESIA: Local with monitored anesthesia care, Javed Ravi, SUPERINTENDENT AUTOMOTIVE and Marcaine 2 mL of 0.25% with epinephrine. INDICATIONS: This 49-year-old developmentally delayed white man was admitted to the hospital on June 12, [address] Billings with erythema and tenderness of his right lateral knee area. Consultation was undertaken by ak, which showed only cellulitic changes and no fluid collection. An ultrasound had been performed, which showed possible fluid collection in the area. Needle aspiration with a large bore needle failed to demonstrate any purulence and joint space itself was free of purulence. He has been maintained on IV antibiotic Rocephin and the erythema generally has resolved and now localized to a specific area in the right posterior lateral knee just above the joint space itself. An ultrasound was repeated, which shows fluid and debris highly consistent with abscess. At this point, incision and drainage of the abscess is indicated. The risks of bleeding, infection, failure to cure the problem, and other unforeseen complications were reviewed with the patient's insurance case manager, Holly Fortune and understanding all of this proceed with incision and drainage of probable abscess. FINDINGS: Purulent material was indeed noted. The complete drainage of the area was accomplished. It did not extend to the joint space so far as could be told. A counter incision was made allowing for placement of yellow vessel loop for ongoing drainage. DESCRIPTION OF PROCEDURE: PATIENT NAME: YESENIA BRISCOE OPERATIVE REPORT DATE OF : 74 REPORT #: [id number] PHYSICIAN: FADI MILLER MD PCP: FRANCISCA MCGARRY MD REPORT IS CONFIDENTIAL AND NOT TO BE RELEASED WITHOUT AUTHORIZATION [facility] [address] [place], [place] [address] Draft The patient was brought to the operating room and in the lateral position with the right extremity up, was given intravenous sedation with propofol infusional technique. The right knee was prepared with a Betadine solution and draped sterilely. A 0.25% Marcaine was injected into the area of previous scabbing. A small incision was made with a #15 blade and hemostats and egress of purulent material was noted. The purulent material was free-flowing with a well-defined abscess space at this point. A counter incision was made superior and posterior, allowed for placement of a tonsil clamp and placement of a yellow vessel loop drain. The drain was tied in a loop and using a bulb syringe, the cavity irrigated out until completely clear. Photographs were taken. Once completely clear and hemostatic, minimal soft tissue was removed from the space as well. A gauze dressing was applied as was a Kerlix wrap. He tolerated the procedure well, was allowed to emerge from sedation and taken to the recovery room in good condition. Blood loss was minimal. Complications none. Fadi Miller MD JM/MODL /[id number] cc: MD Eliazar Whalen MD Cynthia Rasch, MD Copies: FRANCISCA MCGARRY MD, BRIAN DO RASCH, CYNTHIA MD ~ PATIENT NAME: YESENIA BRISCOE OPERATIVE REPORT DATE OF : 74 REPORT #: [id number] PHYSICIAN: FADI MILLER MD PCP: FRANCISCA MCGARRY MD REPORT IS CONFIDENTIAL AND NOT TO BE RELEASED WITHOUT AUTHORIZATION
[~2020-06-12 20:37] MED LIST changes: +ZYPREXA ZYDIS15 MG PO; -ZYPREXA15 MG PO
--- OUTSIDE RECORDS SUMMARY | 2020-06-12 20:40 | XMS ---
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 Please contact [facility] for any mental health concerns:\T\nbsp; Vobvzgfqs-[phone]\T\nbsp; George [phone]\T\nbsp; Crisis line at [phone].\T\nbsp; Care History Medical/Surgical 02/06/2018 [facility] - Patient can be seen same [...] ED please contact Community Health WorkerMena at [phone]. These are guidelines and the provider should exercise clinical judgment when providing care. Venkatesh VISIT COUNT (12 MO.) 4 [facility] TOTAL 4 NOTE: Visits indicate total known visits. 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 - Acquired absence of other left toe(s) - Acquired absence of other right toe(s) - Unspecified abdominal pain 09/07/2019 01:05 [facility] [place] TYPE: Emergency COMPLAINT: - SMALL BOWEL OBSTRUCTION 09/03/2019 09:00 [facility] [place] TYPE: Emergency COMPLAINT: - POSSIBLE UTI INPATIENT VISIT TRACKING (12 MO.) 09/07/2019 15:11 [facility] [place] TYPE: Medical Surgical COMPLAINT: - SMALL BOWEL OBSTRUCTION DIAGNOSES: - Postprocedural intestinal obstruction, unspecified as to partial versus complete - Chronic idiopathic constipation - Schizophrenia, unspecified - Unspecified intellectual disabilities - 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 - Acquired absence of other left toe(s) - Bed confinement status - Postprocedural intestinal obstruction, unspecified as to partial versus complete - Unspecified lack of expected normal physiological development in childhood - Other jail (current) drug therapy - Acquired absence of other right toe(s) - Unspecified lack of expected normal physiological development in childhood - Acquired absence of other [...] pain - Chronic idiopathic constipation - Epilepsy, unspecified, not intractable, without status epilepticus - Unspecified lack of expected normal physiological development in childhood - Other jail (current) drug therapy - Unspecified lack of expected normal physiological development in childhood - Other jail (current) drug therapy - Epilepsy, unspecified, not intractable, without status epilepticus - Unspecified intellectual disabilities [email or web address]
--- NOTE | 2020-06-13 01:00 | NUR ---
PT ARRIVED TO FLOOR FROM ED, XFER OVER 4PA, VITALS IN, LABORER PETROLEUM REFINERY CHARTING, ICE WATER PROVIDED,
--- NOTE | 2020-06-13 01:03 | NUR ---
PT ARRIVED TO FLOOR VIA STRETCHER AND WAS MOVED OVER TO BED 4PA. PT CALLS OUT BUT IS OTHERWISE NONVERBAL AND NOT ABLE TO EXPRESS WHAT HE NEEDS. HE IS DRY AT THIS TIME AND HAD PAIN MEDS BEFORE ARRIVAL. HIS CAREGIVER LEFT HER MANAGERS PHONE NUMBER AND LEFT FOR THE NIGHT. PT IS RESTING IN BED AT THIS TIME WITH CALL LIGHT CLOSE AND BED ALARM IS ON. HE IS VISABLE FROM NURSES STATION.
--- NOTE | 2020-06-13 01:30 | NUR ---
ASSESSMENT DONE. pt NON VERBAL. MOANING, PRN PAIN MEDICATION GIVEN (SEE MAR). BINDER FROM RETIREMENT PROVIDED DIET CHOICE. GAVE MED IN APPLE SAUCE, pt TOLERATED WELL. URINE SPECIMEN SENT. PERICARE DONE. BED ALARM ON. CURTAIN OPEN TO NURSES STATION.
--- NOTE | 2020-06-13 01:33 | NUR ---
GM VALENCIA. CALLED, REPORTED MD REQUESTED pt BE NPO DUE TO POSSIBLE SURGERY IN AM. ORDER UPDATED.
--- NOTE | 2020-06-13 02:41 | NUR ---
ROUNDED ON pt. RESTING WITH EYES CLOSED, RESPIRATIONS REGULAR AND UNLABORED. pt QUIET AT THIS TIME. BED ALARM ON. CURTAIN OPEN TO NURSES STATION.
--- NOTE | 2020-06-13 03:00 | NUR ---
NEW ORDERS FOR BOLUS. INFUSING. pt RESTING WITH EYES CLOSED, RESPIRATIONS REGULAR AND UNLABORED. BED ALARM ON.
--- NOTE | 2020-06-13 04:02 | NUR ---
pt CRYING OUT IN PAIN. PRN PAIN MEDICATION GIVEN (SEE MAR). CURTAIN OPEN TO NURSES STATION AND BED ALARM ON.
--- NOTE | 2020-06-13 05:50 | NUR ---
IN RM TO ASST RN WITH CHANGING PT DUE TO INCT OF UNINE, PERICARE AND [place] COMPLETE, TOOK VITALS FOR RN, NO FURTHER REQUESTS
--- NOTE | 2020-06-13 06:12 | NUR ---
ROUNDED ON pt. DEPENDS SATURATED. [place] CARE DONE. CLEAN DEPENDS IN PLACE. pt ROUSED TO VOICE, SNORING. RESPIRATIONS 8. VITALS AND ASSESSMENT DONE. BED ALARM ON. CURTAIN OPEN TO NURSES STATION.
--- NOTE | 2020-06-13 07:08 | NUR ---
REPORT RECEIVED. PATIENT ASLEEP IN BED. RESPIRATIONS EVEN AND UNLABORED BUT BRADYPNEIC AT 7 RPM. PULSE OX PLACED. 94% ORA. HR 84 BPM.
[2020-06-13] MEDS ORDERED: LITHIUM CARBON300 MG PO (07:31)
[2020-06-13] MEDS ORDERED: DIVALPROEX SOD500 MG PO (07:31)
--- NOTE | 2020-06-13 08:02 | NUR ---
PATIENT RESTING WITH EYES CLOSED, UTILITY SALES REPRESENTATIVE IN ROOM. BOARD UPDATED
--- NOTE | 2020-06-13 08:49 | NUR ---
PATIENT RESTING IN BED. CAREGIVER AT BEDSIDE. ABX JEAN. FLACC SCALE 7/10, ADMIN DILAUDID 0.5 MG IV PUSH AT THIS TIME. FLUSHED WITH 10 ML NS. RESPIRATIONS EVEN AND UNLABORED. PATIENT AWAKE AND AGITATED.
[2020-06-13] MEDS ORDERED: DULCOLAX10 MG PR (09:16)
[2020-06-13] MEDS ORDERED: METAMUCIL FIBE3.4 GM PO (09:19)
[2020-06-13] MEDS ORDERED: GENTLE LAXATIVE5 M1 PO (09:20)
[2020-06-13] MEDS ORDERED: ONDANSETRON ODT4 MG SL (09:24)
--- NOTE | 2020-06-13 09:27 | NUR ---
PATIENT AWAKE IN BED, SPORATIC CRIES IN PAIN. TEMP 100.5, RN NOTIFIED. INCONT OF URINE, BRIEF CHANGED. FACE AND HANDS WASHED. CAREGIVER IN ROOM
--- NOTE | 2020-06-13 09:29 | NUR ---
patient resting in bed. agitated. gave oxycodone 5mg with a sip of water per Dr. Billings's approval. caregiver at bedside. call light within reach.
--- NOTE | 2020-06-13 11:29 | NUR ---
NOTIFIED DR HILLIARD THAT PATIENT'S BP 95/56 AN TEMP 100.[address] HILLIARD IF PATIENT COULD BE CHANGED TO REGULAR DIET SINCE NOT GOING TO SURGERY. DR ESTRADA WITH THIS PLAN. CALLED PHARMACY TO ASK IF DEPAKOTE CAN BE CRUSHED. PHARMACIST SAID THEY WILL CHANGE IT TO A LIQUID MED.
--- NOTE | 2020-06-13 12:17 | NUR ---
PATIENT SLEEPING IN BED. MEDS GIVEN. LR HUNG AT 200 ML/HR. CRUSHED AND MIXED TYLENOL AND SENOKOT IN PUDDING. PATIENT AGITATED. CAREGIVER AT BEDSIDE.
--- NOTE | 2020-06-13 13:08 | NUR ---
DR MILLER IN TO ASSESS RIGHT KNEE. TEMP 99.7 DEGREES F. PATIENT SLEEPING. TOLERATED DR MILLER'S PROCEDURE WELL. CALL LIGHT WITHIN REACH. RESPIRATIONS EVEN AND BRADYPNEIC AT 7 RPM. PULSE 91, SPO2 90% ORA. CAREGIVER AT BEDSIDE.
--- NOTE | 2020-06-13 15:31 | NUR ---
PATIENT ASLEEP IN ROOM. ASSESSMENT COMPLETE. BRADYPNEIC AT 7 RPM. RESPIRATIONS EVEN AND UNLABORED. LR RUNNING AT 200 ML/HR PER ORDER.
--- NOTE | 2020-06-13 17:42 | NUR ---
PATIENT AGITATED AND YELLING OUT IN BED. 5 MG [id number] GIVEN ORDERED FOR PAIN ASSESSMENT. ATTENDS CHANGED. PATIENT REPOSITIONED IN BED. NEW BAG OF LR HUNG, INFUSING AT 125 ML/HR ORDERED. BED ALARM ON. PATIENT VISIBLE FROM NURSES STATION.
--- NOTE | 2020-06-13 17:47 | NUR ---
VITALS AND I&OS CHARTED. PATIENT INCONTINENT OF STOOL/URINE, BRIEF AND BEDDING CHANGED BY THIS MILK DRIER AND RN. PILLOW UNDERLEFT HIP AND BETWEEN KNEES. PATIENT AGITATED, CRYING OUT.
--- NOTE | 2020-06-13 18:30 | NUR ---
PATIENT NONVERBAL AT BASELINE. AGITATED AT TIMES. LR AT 125 CONT. 2 P-A WITH POSITION CHANGES. INCONTINENT. STAFF ASSISTANCE REQUIRED WITH MEALS. CRUSH MEDS. SEE DIET ORDERS. OXYCODONE FOR PAIN. FEBRILE X1 100.5 DEGREES F, TYLENOL GIVEN. RT KNEE ASPIRATED WITHOUT RETURN. VANCO IV.
--- NOTE | 2020-06-13 19:04 | NUR ---
PATIENT GIVEN 5 MG OXYCODONE PER ORDER FOR CONTINUED AGITATION, GRIMMACING, AND SHOUTING OUT, CRUSHED MED AND MIXED WITH PUDDING. BED ALARM ON. PATIENT VISIBLE FROM NURSES STATION.
--- NOTE | 2020-06-13 19:41 | NUR ---
REPORT RECEIVED FROM PRIMO WORRELL AND GM CAPONE. PATIENT LAYING IN BED, AWAKE. IVF INFUSING WNL. TURNED TO L LATERAL SIDE. CALL LIGHT IN REACH, IN VIEW OF NURSES STATION, WILL CONT FREQUENT CHECKS.
--- NOTE | 2020-06-13 19:46 | NUR ---
pt CALLING OUT. BED MOVED FOR pt TO VIEW NURSES STATION. pt RESTING IN BED QUIETLY WITH BED ALARM ON.
--- NOTE | 2020-06-13 19:46 | NUR ---
PT IS CALLING OUT, UNABLE TO SEE STAFF, TURNED BED SO PT CAN SEE US, PT IS CALMING DOWN, PT NOT INCT OF URINE AT THIS TIME, WILL ROUND ON PT AGAIN SHORTLY
--- NOTE | 2020-06-13 20:54 | NUR ---
SCHEUDLED MEDICATIONS ADMINISTERED. BOWEL MEDS HELD DUE TO FREQUENT LOOSE BMS. ATTENDS, LINENS CHANGED. VITALS AND I/O'S COMPLETE, TEMP 101.3, TYLENOL GIVEN. ASSESSMENT COMPLETE. PATIENT LAYING IN BED AWAKE, AGITATED AT TIMES BUT EASILY CONSOLABLE WITH VERBAL REASSURANCE/TOUCH. IN VIEW OF NURSES STATION, WILL CONT FREQUENT CHECKS.
--- NOTE | 2020-06-13 21:26 | NUR ---
IV PUMP ALARMING. pt RESTING IN BED. IV ANTIBIOTIC COMPLETE, SL WNL. BED ALARM ON.
--- NOTE | 2020-06-13 22:10 | NUR ---
IN RM TO TAKE AXILARY TEMP PER RN, RN INFORMED, [facility], LOWERED PT HOB
--- NOTE | 2020-06-13 23:45 | NUR ---
IN RM WITH RN TO CHANGE PT, NEW DRAWSHEET, CHUX, PILLOW CASES, BOOSTED PT UP IN BED, ADDED PILLOWS FOR COMFORT, RN PROVIDING PAIN MGMT, NO FORTHER REQUEST AT THIS TIME
--- NOTE | 2020-06-13 23:48 | NUR ---
PT BECOMING NOTICEABLY AGITATED, BM x1, ATTENDS CHANGED AND REPOSITIONED IN BED. PRN PAIN MEDICATION ADMINISTERED, TITRATED TO MAX DOSE. IVF INFUSING WNL. PT MOANING AND CRYING OUT, HOUSING MANAGEMENT REPRESENTATIVE IN ROOM SITTING WITH PATIENT TO CONSOLE. IN VIEW OF NURSES STATION, FREQUENT CHECKS CONTINUED.
--- NOTE | 2020-06-14 | NUR ---
SITTING WITH PT FOR PT COMFORT WHILE PAIN MED KICKED IN, PT STARTING TO RELAX, WILL LET PT REST, PT IN LINE OF SIGHT FROM NURSE'S STATION, WILL CONTINUE TO MONITIOR PT, PRIMARY RN HAS BEEN UPDATED
--- NOTE | 2020-06-14 00:23 | NUR ---
ROUNDED ON PATIENT, AWAKE IN BED. PATIENT CONTINUES TO CALL OUT AND MOAN, VERBALLY REASSURED AND ATTEMPTED TO CONSOLE. REPOSITIONED PILLOWS. IN VIEW OF NURSES STATION, FREQUENT CHECKS CONTINUED.
--- NOTE | 2020-06-14 02:10 | NUR ---
IV PUMP ALARMING, ERROR RESOLVED. PATIENT AWAKE IN BED, INTERMITTENT CRYING OUT, FIDGETING AND AGITATION, PASSING GAS. VITALS COMPLETE, VSS. IVF INFUSING WNL. ASSESSMENT COMPLETE. ATTEMPTED TO CONSOLE WITH VERBAL REASSURANCE. IN VIEW OF NURSES STATION, FREQUENT CHECKS CONTINUED.
--- NOTE | 2020-06-14 02:36 | NUR ---
MD TO FLOOR. VERBALLY NOTIFIED OF EARLIER TEMPERATURE AND PRN MEDICATION ADMINISTRATION, REASSESSMENT. NO NEW ORDERS.
--- NOTE | 2020-06-14 04:30 | NUR ---
PATIENT NOTED TO BE INCREASINGLY VOCAL, WITHDRAWS FROM TOUCH ON R LEG. GRIMACING AND MOANING NOTED. PRN PAIN MEDICATION ADMINISTERED. REPOSITIONED IN BED, VISIBLE FROM NURSES STATION. FREQUENT CHECKS CONTINUED.
--- NOTE | 2020-06-14 05:40 | NUR ---
IN RM TO CHANGE PT, NEW CHUX, NEW ATTENDS ON, WIPEDOWN SKIN, BOOSTED IN BED, TOOK VITALS,
--- NOTE | 2020-06-14 06:11 | NUR ---
PRN TYLENOL ADMINSTERED FOR 99.3 TEMP. PT SWALLOWS PILLS WELL WITH APPLESAUCE. REPOSITIONED IN BED, VERBALLY REASSURED. IN VIEW OF NURSES STATION, WILL CONT TO MONITOR FREQUENTLY.
--- NOTE | 2020-06-14 07:05 | NUR ---
report received. patient asleep in bed. respirations even and unlabored. bed alarm on. patient visible from nurses station.
--- NOTE | 2020-06-14 08:00 | NUR ---
PATIENT SLEEPING. WHITE BOARD UPDATED. CALL LIGHT WITHIN REACH. PATIENT'S BREAKFAST ORDERED. NO OTHER NEEDS AT THIS TIME
--- NOTE | 2020-06-14 08:35 | NUR ---
PATIENT RESTING IN BED. CAREGIVER IN ROOM. PATIENT INCONTINENT OF STOOL. PERICARE PERFORMED.TWO PERSON ASSISTING. LINENS CHANGED. CALL LIGHT WITHIN REACH. NO OTHER NEEDS AT THIS TIME
--- NOTE | 2020-06-14 10:25 | NUR ---
PATIENT RESTING IN BED. UNEASY WITH STAFF IN ROOM. CAREGIVER LEFT AT 1000 FOR A MEETING AND SAID SHE WOULD BE BACK ABOUT 1200. WILL CHECK BACK FREQUENTLY. NO FURTHER NEEDS AT THIS TIME.
--- NOTE | 2020-06-14 10:46 | NUR ---
PATIENT AGITATED. PAIN MEDS GIVEN WITH MORNING MEDS FOR RASS PAIN SCALE. CHAPIN PENA PER MD ORDER. PATIENT REPOSITIONED IN BED AFTER BLANCHABLE REDDNESS NOTED ON LEFT HIP. PATIENT CALMS DOWN AND FALLS ASLEEP. VS STABLE. RR BRADYPNEIC AT 8 RPM. SAO2 96% ORA. BED ALARM ON. PATIENT VISIBLE FROM NURSES STATION.
--- NOTE | 2020-06-14 12:10 | NUR ---
PATIENT ASLEEP IN BED. LUNCH ORDERED. RISE CAREGIVER AT BEDSIDE. RESPIRATIONS EVEN AND UNLABORED. 10 RPM. BED ALARM ON. PATIENT VISIBLE FROM NURSES STATION.
--- NOTE | 2020-06-14 12:36 | NUR ---
PATIENT ATTENDS AND LINENS CHANGED FOR INCONTINENT TO URINE AND BM.PATIENT REPOSITIONED IN BED. CAREGIVER AT BEDSIDE. LUNCH ARRIVES. CAREGIVER WANTS TO FEED PATIENT. BED ALARM ON. DOOR OPEN. PATIENT VISIBLE FROM NURSES STATION. LIGHTS DIMMED.
--- NOTE | 2020-06-14 13:46 | NUR ---
PATIENT RESTING IN BED WATCHING MOVIE. CAREGIVER IN ROOM. PATIENT YELLING. NO FURTHER NEEDS AT THIS TIME.
--- NOTE | 2020-06-14 14:56 | NUR ---
PATIENT ASLEEP IN BED. RESPIRATIONS EVEN AND UNLABORED. CAREGIVER AT BEDSIDE.
--- NOTE | 2020-06-14 15:15 | OR ---
[facility] [address], [place] [address] Signed DATE OF OPERATION: 06/13/2020 SURGEON: Fadi Miller MD TIME: 1 p.m. PREOPERATIVE DIAGNOSIS: Swelling and erythema of right lateral knee and possible joint space. POSTOPERATIVE DIAGNOSIS: No evidence of drainable fluid. PROCEDURES: 1. Needle aspiration of soft tissue of right lateral knee/bursa. 2. Right knee joint aspiration. ANESTHESIA: 1% lidocaine. INDICATION: This 49-year-old disabled man has flexion contractures of his lower extremities and was brought to the hospital with cellulitic changes of his right knee area. Clinical examination does not show a drainable fluid collection, but is somewhat tense, shiny skin, and different area of demarcating erythema of the soft tissue. Plain x-ray shows no sign of a joint effusion. Ultrasound performed in the area in question in the lateral aspect of the right knee, which describes possible fluid collection. My clinical impression is that there is no significant abscess, though that certainly could be an air. My review of the ultrasound, shows edema and possible debris versus edematous subcutaneous tissue consistent with cellulitis only. I have recommended needle aspiration and fluid collection for the drainage. Administrative consent was obtained on the basis of his disability, otherwise his commodity specialist is in the room, who concurs. DESCRIPTION OF PROCEDURE: At the bedside, the patient in the lateral decubitus position, the right lateral knee and was prepared with a Betadine solution. A 1% lidocaine was injected laterally of the area excoriation and most intense change. Aspiration with an 18-gauge needle and a 20 mL syringe failed to deliver any fluid. Several passes were taken in the area. Electronically Signed By: FADI MILLER MD 06/14/20 1515 PATIENT NAME: YESENIA BRISCOE OPERATIVE REPORT DATE OF : 74 REPORT #: [id number] PHYSICIAN: FADI MILLER MD PCP: FRANCISCA MCGARRY MD REPORT IS CONFIDENTIAL AND NOT TO BE RELEASED WITHOUT AUTHORIZATION [facility] [address], [place] [address] Signed With a separate needle and so forth the joint space was aspirated of the knee, again showing no definable fluid. Band-Aids were applied. CONCLUDING DIAGNOSIS: At this point, no drainable fluid collection in about the right knee. Agree with continued IV antibiotics and monitoring. On occasion such soft tissue infections to manifest as drainable fluid collections, which definitely should be done if present. MD PAYAM Albert/GISELA /[id number] Copies: ~ Electronically Signed By: FADI MILLER MD 06/14/20 1515 PATIENT NAME: YESENIA BRISCOE OPERATIVE REPORT DATE OF : 74 REPORT #: [id number] PHYSICIAN: FADI MILLER MD PCP: FRANCISCA MCGARRY MD REPORT IS CONFIDENTIAL AND NOT TO BE RELEASED WITHOUT AUTHORIZATION
--- NOTE | 2020-06-14 15:15 | CONS ---
[facility] [address], [place] [address] Signed DATE OF CONSULTATION: 06/13/2020 CONSULTING PHYSICIAN: Fadi Miller MD REQUESTING PHYSICIAN: Dr. Billings. PROBLEM: Right knee infection. HISTORY: This 49-year-old white man is medically disabled and presented to the emergency room this morning with "agitation." He is also considered to have right leg cellulitis based on clinical findings. The patient was noted to be agitated yesterday morning; I worked with him in the past and he has underlying severe developmental delay issues and essentially nonverbal really. He was noted to have an elevated temperature as high as 103, and he was brought to the hospital. He takes a considerable number of medications including lithium, paroxetine, divalproex, primidone, and others; and has been seen in this institution a number of times for various issues. His evaluation in the emergency room included a CBC showing a white count of 12.1. Liver enzymes normal. Lactic acid level of only 1.3. The urinalysis essentially normal. Note was made of swelling of his right leg and some erythema with a small eschar and softness of the tissue nearby. He underwent an ultrasound of the knee in addition to a chest x-ray and a plain x-ray as well. The findings showed no fracture or dislocation and no particular joint effusion. There was some nonspecific lateral soft tissue swelling. No radiopaque foreign body or commencing soft tissue gas. The ultrasound, however, did describe irregular and partially septated collection of complex fluid with surrounding hyperemia suggesting abscess versus organizing hematoma. The patient is not known to have trauma to the right knee, though it would not be impossible as medical history is lacking generally. REVIEW OF SYSTEMS: Unable to communicate. PHYSICAL EXAMINATION: GENERAL: White man lying in the lateral position with flexion contractures of lower extremities. VITAL SIGNS: Temperature is a 100.5, pulse is 104, blood pressure 95/56, and O2 Electronically Signed By: FADI MILLER MD 06/14/20 1515 PATIENT NAME: YESENIA BRISCOE CONSULTATION DATE OF : 74 REPORT #: [id number] PHYSICIAN: FADI MILLER MD PCP: FRANCISCA MCGARRY MD REPORT IS CONFIDENTIAL AND NOT TO BE RELEASED WITHOUT AUTHORIZATION [facility] [address], [place] [address] Signed saturation 96% on room air. CHEST: Shows normal respiratory excursion without tachypnea. EXTREMITIES: He has flexure contractions of upper extremities and lower extremities. Right leg is examined and there is diffuse edema and shiny skin surrounding the knee joint itself. There is mild excoriation to the lateral aspect of the knee, but no sign of deep ecchymosis. He has softness to the joint space, which is clinically consistent with a joint effusion, though this is contrary to the imaging interpretations thus put forward. I detect no actual fluctuant abscess. There is warmth to the area. ASSESSMENT: Clinical impression is that of a possible bursal infection or even joint space infection. He does not have a tense abscess of the soft tissue, otherwise. In general terms, aspiration of this site with identification of an offending organism would be appropriate. Formal opening of the joint space or even the bursa is unlikely necessary under the circumstances. The patient is under intravenous medications currently (ceftriaxone) which is appropriate under the circumstances. We will review further with Dr. Billings about the idea of aspiration of the soft tissue, which may well represent a bursal space infection or inflammatory process, and whether or not he will need more formal orthopedic or evaluation or not. Fadi Miller MD /MODL /[id number] cc: Eliazar Billings MD Copies: ELIAZAR BILLINGS DO ~ Electronically Signed By: FADI MILLER MD 06/14/20 1515 PATIENT NAME: YESENIA BRISCOE PREETI CONSULTATION DATE OF : 74 REPORT #: [id number] PHYSICIAN: FADI MILLER MD PCP: FRANCISCA MCGARRY MD REPORT IS CONFIDENTIAL AND NOT TO BE RELEASED WITHOUT AUTHORIZATION
--- NOTE | 2020-06-14 16:39 | NUR ---
PATIENT IN BED. CAREGIVER AT BEDSIDE. PATIENT AGITATED. CAREGIVER STATES THIS IS NORMAL BEHAVIOR FOR HIM. CAREGIVER STARTS STAR WARS MOVIE PER PATIENT REQUESTS. ASSESSMENT COMLETE. BED ALARM ON.
--- NOTE | 2020-06-14 16:58 | NUR ---
Spoke with Alea pt's family service caseworker. Emily lives at [facility]. He does not use any DME. He can walk, but mostly crawls. He requires full care by staff and is incontinent of urine and stool. Pt loudly moaning and yelling assessment. Alea feels he is concerned we will hurt him.
--- NOTE | 2020-06-14 17:12 | NUR ---
PATIENT IN BED. ROTATED PATIENT. NO FURTHER NEEDS AT THIS TIME
--- NOTE | 2020-06-14 18:07 | NUR ---
PT CRYING OUT IN PAIN AND SQUIRMY, RASS PAIN SCALE INDICATES 8/10 PAIN. 2 TABS OXYCODONE ADMINSTERED. FED DINNER. PT ATE 75%. REPOSITIONED IN BED. ETTENDS CHECKED AND CLEAN. VISIBLE FROM NURSING STATION. BED ALARM ON.
--- NOTE | 2020-06-14 18:59 | NUR ---
PATIENT REPOSITIONED. PATIENT VERY AGITATED AND CONTINUALLY YELLING. PATIENT IN ROOM NEXT DOOR COMPLAINS OF THIS PATIENT'S NOISE LEVEL. DR COOK NOTIFIED VIA TELEPHONE OF PATIENT'S CONTINUED AGITATION AFTER OXYCODONE ADMIN. NO NEW ORDERS RECEIVED.
--- NOTE | 2020-06-14 19:25 | NUR ---
REPORT RECEIVED FROM DEEDEE WORRELL AND LIBORIO RN. PATIENT AWAKE IN BED, LAYING LEFT LATERAL SIDE, POSITIONED WITH PILLOWS. IVF INFUSING WNL. IN VIEW OF NURSES STATION, WILL CONTINUE FREQUENT CHECKS.
--- NOTE | 2020-06-14 21:02 | NUR ---
SCHEDULED MEDICATIONS ADMINISTERED, PATIENT AWAKE AND ALERT SITTING UP IN BED. PT ABLE TO TAKE ALL MEDICATIONS WITHOUT ISSUE, USING APPLESAUCE AND THICKENED LIQUID. REPOSITIONED IN BED WITH PILLOWS. 2 SPINNERET PERSON IN ROOM TO PROVIDE ATTENDS CHANGE AND COMPLETE VITAL SIGNS. IN VIEW OF NURSES STATION, WILL CONT TO MONITOR.
--- NOTE | 2020-06-14 21:10 | NUR ---
THIS VULCANIZING MACHINE OPERATOR AND VULCANIZING MACHINE OPERATOR ANALILIA CHANGED PATIENT'S INCONTINENT DEPENDS AND REPOSITIONED. V/S AND I&O TAKEN AND CHARTED.
--- NOTE | 2020-06-14 22:08 | NUR ---
IV PUMP ALARMING, ANTIBIOTIC INFUSION COMPLETE. IV SITE SL WNL. pt IS RESTING IN BED QUIETLY, NO SHIFTING, DVD PLAYING. CURTAIN OPEN FOR CLOSE VIEW FROM NURSES STATION.
--- NOTE | 2020-06-14 23:33 | NUR ---
ROUNDED ON PATIENT. SLEEPING IN BED IN L LATERAL POSITION, BREATHING EVEN AND UNLABORED. IN VIEW OF NURSES STATION, NO APPARENT NEEDS AT THIS TIME.
--- NOTE | 2020-06-15 00:15 | NUR ---
ROUNDED ON PATIENT WITH 2 DIRECTOR PRODUCT DEVELOPMENT, ATTENDS CHANGED IN BED. INDICATORS OF PAIN NOTED, PRN PAIN MEDICATION ADMINISTERED. PATIENT REPOSITIONED IN BED WITH PILLOWS, PERSONAL DVD PLAYER ON, LIGHTS DIMMED CURRENTLY. BED ALARM ON, CURTAIN OPEN. WILL CONT TO MONITOR.
--- NOTE | 2020-06-15 00:46 | NUR ---
PATIENT WAS ADJUSTED IN BED TO HAVE PILLOWS UNDER BOTH LEGS WHILE LAYING ON LEFT SIDE. DEPENDS CHANGED. NO OTHER NEEDS AT THIS TIME
--- NOTE | 2020-06-15 01:36 | NUR ---
ROUNDED ON PATIENT, LAYING IN BED WITH EYES CLOSED. BREATHING EVEN AND UNLABORED. LIGHTS DIMMED, DVD PLAYING. IVF INFUSING WNL. BED ALARM ON, CURTAIN OPEN, WILL CONTINUE TO MONITOR.
--- NOTE | 2020-06-15 03:50 | NUR ---
CHECKED IN ON PATIENT, RESTING IN BED WITH EYES CLOSED, LIGHTS OFF. BREATHING EVEN AND UNLABORED. DVD PLAYING. IVF INFUSING WNL. NO APPARENT NEEDS OR DISTRESS AT THIS TIME. BED ALARM ON, CURTAIN OPEN, WILL CONT TO MONITOR.
--- NOTE | 2020-06-15 04:46 | NUR ---
GM KAUFFMAN ASKED FOR HELP WITH ROTATING AND CHANGEING PATIENT. ONE BM. FRESH DEPENDS, CHUCKS, AND DRAW SHEET GIVEN. ROTATED ON TO RIGHT SIDE. NO OTHER NEEDS AT THIS TIME.
--- NOTE | 2020-06-15 04:46 | NUR ---
ROUNDED ON PATIENT, BECOMING NOTICEABLY MORE AGITATED. ATTENDS CHANGED, INCONTINENCE x1 and BM x2. REPOSITIONED TO R LATERAL SIDE WITH PILLOWS, HEEL PROTECTORS IN PLACE. IVF INFUSING WNL. DVD PLAYING FOR PT COMFORT. ASSESSMENT COMPLETE. BED ALARM ON, CURTAIN OPEN, IN VIEW OF NURSES STATION. WILL CONTINUE TO MONITOR.
--- NOTE | 2020-06-15 05:23 | NUR ---
PAIN AND AGITATION MANAGED WELL WITH PRN MEDICATIONS, REPOSITIONING, AND FREQUENT CHECKS THIS SHIFT. PATIENT HAS SLEPT INTERMITTENTLY. VSS, IVF INFUSING WNL. ABLE TO SWALLOW ALL MEDICATIONS WITH APPLESAUCE AND THICKENED LIQUID. IV ABX CONTINUED PER ORDERS. SEVERAL LOOSE BM'S TONIGHT, 2 PA TO CHANGE. PERSONAL DVD PLAYING FOR PT COMFORT. R KNEE REDNESS AND SWELLING APPEARS IMPROVED. BED ALARM ON, CURTAIN OPEN, IN VIEW OF NURSES STATION.
--- NOTE | 2020-06-15 07:35 | NUR ---
REPORT RECEIVED FROM GM LIVINGSTON. THIS RN AND GM WHITE ASSUMING CARE OF PT. PT RESTING IN BED WITH EYES CLOSED. RESPIRATIONS EVEN AND UNLABORED, MUSIC PLAYING FOR PT COMFORT. BED ALARM ON. PT EASILY VEIWED FROM NURSES STATION. BED RAILS UP.
--- NOTE | 2020-06-15 07:40 | NUR ---
To room for morning shift report from Evita RN & Ana RN. Pt report included: Pt is MRDD with a hx of psych issues, and admitted for right leg cellulitis/sepsis. Report was that meds were given last night in applesauce and pt was able to take them with some difficulty. RNs the day prior had crushed them and that was successful as well. Pt can be combative, but usually responds well to his TV show on laptop and sometimes turning on or off his lights helps sooth him. FLACC assessments for pain admin being used, pt responds to pain in his r leg. Pt currently lying in bed, positioned to comfort, side rails up x4, table and call light within reach, pt fully visible from nurses station.
--- NOTE | 2020-06-15 09:00 | NUR ---
In room for assessment, Laila RN and student RN to bedside for med pass. Pt lying in bed, legs curled up near his torso. Pt making loud noises and groaning, pt FLACC score of 9, meds given. Pt moved to chair via fernanda lift and 3PA. Pt positioned, pillows placed for comfort and security within the chair. Caregiver present, table and call light within reach.
--- NOTE | 2020-06-15 09:15 | NUR ---
MORNING MEDICATIONS DUE. THIS RN TO BEDSIDE WITH STUDENT NURSE SARA. MEDICATIONS GIVEN. PHARMACY CALLED AND PHARMACIST STATES ORAL PILLS CAN BE CRUSHED. PILLS GIVEN CRUSHED WITH APPLESAUCE. PT TAKES ORAL LIQUID MEDICATIONS WELL WITH NO SWALLOWING ISSUES NOTED. PT AGITATED WITH CARES AND CRYING OUT. FLACC SCORE OF 7/10. SEE MAR FOR PAIN MEDICATION GIVEN. DEPENDS AND BED SOILED. DEPENDS CHANGED. LINENS CHANGED. DEMETRIUS LIFT UP TO CHAIR. PT CAREGIVER AT BEDSIDE FEEDING PT BREAKFAST. PT WATCHING STARWARS ON COMPUTER. PT CALMS WITH END OF CARES. NO ADDIITONAL NEEDS AT THIS TIME. CALL LIGHT ARACELYHTIN ZACH. CAREGIVER AT BEDSIDE.
--- NOTE | 2020-06-15 10:05 | NUR ---
THIS RN CALLED TO ROOM BY STUDENT RN WITH CONCERNS FOR IV THAT IS CURENTLY INFUSING VANCO. INFUSION STOPPED. IV ASSESSED SMALL AMOUNT OF LEAKING NOTED AT SITE. IV FLUSHES WELL WITH NO PAIN NOTED OR REPORTED BY PT. DRESSING CHANGED. VANCO INFUSION TRANSFERED TO LEFT WRIST IV. LEFT WRIST IV FLUSHES WELL WITH SMALL AMOUNT OF BLOOD RETURN NOTED. IVS COVERED BY ENERGY OPERATIONS VICE PRESIDENT, RUSS, AND STUDENT RN WHO ARE GETTING PT UP FOR SHOWER. PT VOCALIZES WITH CARES BUT IS COOPERATIVE AND CAREGIVER STATES PT SEEMS "COMFORTABLE WITH YOU GUYS." PT CALMS QUICKLY. FLACC SCORE NOW 3/10. NO ADDITIONAL NEEDS AT THIS TIME. ENERGY OPERATIONS VICE PRESIDENT, STUDENT RN, AND CAREGIVER AT BEDSIDE.
--- NOTE | 2020-06-15 10:20 | NUR ---
In room for rounding. Laila WORRELL, 2 Nursing students, and pts caregiver in room with pt. Laila WORRELL confirming R arm IV still patent and not infiltrated. Pts IV flushed with ease, does not draw back. Pt getting IV ABX infusion through left side IV site. Pt appears calm and less agitated than my prior visit this morning. Pt up in chair from fernanda lift. Pt positioned with pillows for added comfort and support. BLOW TORCH BURNER and nursing students to shower pt at this time. Table and call light within reach. Caregiver present.
--- NOTE | 2020-06-15 11:00 | NUR ---
To room for rounding. Pt sitting in chair, not crying out or groaning. Appearing calm and comfortable. Watching star wars on computer. Pts caregiver in the room, table and call light within reach.
--- NOTE | 2020-06-15 12:36 | NUR ---
In room for rounding. Pt repositioned, new clyde pad placed. Pt moved into bed, he appeared uncomfortable in the chair. Pt crying out and groaning, grimacing and writhing. PRN pain meds will be given shortly. Pt in bed, side rails up, bed in lowest position, table and call light within reach. Pts star wars show playing beside him. Caregiver present in the room.
--- NOTE | 2020-06-15 12:40 | NUR ---
In room for PRN pain [employer] transportation intermediary. Pt still writhing, grimacing, and groaning/crying out. Pt caregiver at bedside for comfort. Pt given strawberry smoothie Ensure with PRN pain med. Pt able to take all med (crushed in applesauce) without difficulty. Pt in bed, side rails up, bed in lowest position, table and call light within reach, caregiver at bedside.
--- NOTE | 2020-06-15 12:45 | NUR ---
THIS RN TO ROOM TO ASSIST WITH MOVING PT BACK TO BED. PT CALLING OUT AND TENSE IN CHAIR. FLACC SCORE OF 6/10. PT TRANSFERED WITH 3 PERSON ASSIST AND DEMETRIUS LIFT BACK TO BED. PT POSITIONED ON LEFT SIDE WITH PILLOWS FOR SUPPORT AND BETWEEN KNEES. PRN PAIN MEDICATION GIVEN (SEE MAR). PT DRINKS AN ADDIITONAL ENSURE. NO ADDITIONAL NEEDS AT THIS TIME. CALL LIGHT WITHIN REACH. BED RAILS UP. CAREGIVER AT BEDSIDE.
--- NOTE | 2020-06-15 13:44 | NUR ---
PATIENT IN BED, SALSA DANCE INSTRUCTOR STEPPED OUT OF ROOM AT THIS TIME. ATTENDS CHANGED. [place] CARE DONE. CALL LIGHT IN REACH. NO FURTHER NEEDS AT THIS TIME.
--- NOTE | 2020-06-15 14:15 | NUR ---
In room for afternoon assessment. Pt assessment complete, VSS, pt continues to appear distressed, FLACC score of 9 at present. Pt given afternoon meds with some difficulty, pt spit-up some of his oral liquid meds. Pt given PRN Zofran as ordered. Pt repositioned in bed, turned, and given new warm blankets. Therapeutic communication used to reassure and calm pt. Pts IV on his right AC was DCd by Laila WORRELL. Pt in bed, side rails up, bed in lowest position, table within reach, pt visible from nurses station.
--- NOTE | 2020-06-15 15:00 | NUR ---
In room for rounding, pt in bed, lying with eyes closed breathing even and unlabored. Pt not writhing or crying out as he was formerly. Pt appearing calm. Pts bed in lowest position, side rails up, visible from the nurses sation.
--- NOTE | 2020-06-15 16:27 | NUR ---
Checked on Emily. CG is out. No change in plan for dc.
--- NOTE | 2020-06-15 17:44 | NUR ---
THIS AERIAL SURVEY TECHNICIAN AND GM BEARD WENT IN TO SIT PATIENT UP FOR DINNER. ATTENDS WAS SOILED. [place] [facility] DONE. NEW ATTENDS IN PLACE. PATIENT REPOSITIONED AND SET UP, RN DID RECTAL TEMP PATIENT FELT WARM TO TOUCH. RN IN TO ASSIST PATIENT WITH DINNER. CALL LIGHT IN REACH. NO FURTHER NEEDS AT THIS TIME.
--- NOTE | 2020-06-15 17:45 | NUR ---
THIS RN TO ROOM TO CHECK ON PT. PT RESTING WITH EYES CLOSED. PT AWAKENS TO VOICE AND TOUCH. PT REPOSITIONED TO RIGHT SIDE WITH HEAD OF BED AT 60 DEGREES FOR DINNER. PT HAS MINIMAL APPITITE AND ONLY TAKES 2 BITES OF FOOD. PT CRYING OUT WITH CARES. DEPENDS SATURATED. SMALL SMEAR NOTED. DEPENDS CHANGED, [place] [facility] DONE. PT WARM TO THE TOUCH AND RIGHT KNEE APPEARS TO HAVE INCREASED REDNESS: AREA OUTLINED AND DATED FOR FURTURE MONITORING. TEMPERATURE TAKEN 99.7 RECTAL TEMPERATURE. WILL CONTINUE TO MONITOR. FLACC SCORE OF 10/10, SEE MAR FOR MEDICATION GIVEN. PT TAKES BITE OF PUDDING WITH MEDICATION AND A FEW SIPS OF WATER. PT REMAINS ON RIGHT SIDE WITH HEAD OF BED ELEVATED AT 30 DEGREES FOR ASPIARTION PRECAUTIONS. BLANKETS PROVIDED. BED RAILS UP. BED ALARM ON.
--- NOTE | 2020-06-15 18:53 | NUR ---
Pt being treated for his Right Lateral Knee cellulitis/sepsis. Pts R knee is red and warm to the touch, with an area of redness marked out on his skin to monitor. Pt is incontinent of urine and stool. Pt MRDD so FLACC scores being used for pain assessment. Pt chart says "nonverbal" but pt can communicate some words occassionally and in appropriate context. Meds being crushed in applesauce. VSS. R IV pulled.
--- NOTE | 2020-06-15 19:20 | NUR ---
REPORT RECEIVED FROM KISHA WORRELL AND CHRISTOPHER RN. PATIENT LAYING IN BED, AWAKE. IVF INFUSING WNL. BED ALARM ON, CURTAIN OPEN, IN VIEW OF NURSES STATION. WILL CONT TO MONITOR.
--- NOTE | 2020-06-15 21:00 | NUR ---
OBSERVED PATIENT LAYING IN BED WITH EYES CLOSED, L LATERAL POSITION SUPPORTED BY PILLOWS. IVF INFUSING WNL. BED ALARM ON, CURTAIN OPEN. WILL CONTINUE TO MONITOR.
--- NOTE | 2020-06-15 22:09 | NUR ---
SCHEDULED MEDICATIONS ADMINISTERED, IV ABX INFUSING. PATIENT ABLE TO TAKE PILLS WITH PUDDING AND THICKENED LIQUID. ASSESSMENT COMPLETE, 2 DE ICER INSTALLER IN ROOM TO TAKE VS, I\O'S, AND CHANGE ATTENDS. A+O, DEMONSTRATED VERBAL RESPONSES TO QUESTIONS. TEMP 99.9, PRN MEDICATION ADMINSTERED. CURTAIN OPEN, IN VIEW OF NURSES STATION, WILL CONT TO MONITOR.
--- NOTE | 2020-06-15 22:42 | NUR ---
PATIENT WAS CHANGED AND SHEETS WERE CHANGED AFTER A BM. REPOSTIONED ON RIGHT SIDE. [place] [facility] COMPLETED. ASSISTED WITH DRINKING JUICE AND WATER. ASSISTED WITH EATING HALF A CUP OF PUDDING. VITALS AND I&O DONE. FRESH WATER AND JUICE GIVEN. PATIENT'S PEROSNAL TV WAS MOVED TO SIDE OF BED WHERE PATIENT COULD SEE. NO OTHER NEEDS AT THIS TIME.
--- NOTE | 2020-06-15 22:43 | NUR ---
2PA CHANGED BED LINEN. CLEANED PATIENT FROM INCONTINENT BOWEL MOVEMENT AND URINE. FRESH ATTENDS ON. PATIENT REPOSITIONED LAYING ON HIS RIGHT SIDE.
--- NOTE | 2020-06-16 00:02 | NUR ---
CHECKED ON PATIENT. LAYING IN BED WITH LIGHTS OFF, APPEARS COMFORTABLE. EYES CLOSED. BREATHING EVEN AND UNLABORED. IVF INFUSING WNL. DVD PLAYING FOR PT COMFORT. CURTAIN OPEN, IN VIEW OF NURSES STATION. WILL CONTINUE TO MONITOR.
--- NOTE | 2020-06-16 01:07 | NUR ---
CHECKED IN ON PATIENT. LAYING ON R LATERAL SIDE, EYES CLOSED, BREATHING EVEN AND UNLABORED. NO APPARENT NEEDS OR DISTRESS NOTED. DVD PLAYING. CURTAIN OPEN, ABLE TO VIEW FROM NURSES STATION. WILL CONTINUE TO MONITOR.
--- NOTE | 2020-06-16 01:27 | NUR ---
IV PUMP ALARMING, ERROR RESOLVED. NEW BAG IVF HUNG. PATIENT LAYING IN BED, EYES CLOSED, LIGHT SNORING. R LATERAL POSITION. BREATHING UNLABORED. WILL CONT TO MONITOR.
--- NOTE | 2020-06-16 02:55 | NUR ---
PT NOTED TO BE AWAKE, MOANING, AND SHIFTING IN BED. 2 ORGAN BUILDER AND RN IN ROOM, ATTENDS CHANGED. BM x1 AND URINE x1. REPOSITIONED TO R LATERAL SIDE WITH PILLOWS, HEEL PROTECTORS ON. ASSESSED FOR PAIN: PATIENT SEEMS AGITATED WITH MOVEMENT BUT IS NOT SHOWING INDICATORS OF PAIN AT THIS TIME. IVF INFUSING WNL. BARRIER CREAM WIPES USED, BONY PROMINANCES ASSESSED FOR ANY BREAKDOWN. ASSESSMENT OTHERWISE UNREMARKABLE. CURTAIN OPEN, IN VIEW OF NURSES STATION. WILL CONTINUE TO MONITOR.
--- NOTE | 2020-06-16 02:57 | NUR ---
WIPED/CLEANED PATIENT'S INCONTINENT BOWEL MOVEMENT AND URINE. PATIENT REPOSITIONED. FRESH ATTENDS ON.
--- NOTE | 2020-06-16 03:24 | NUR ---
CHECKED ON PATIENT: AWAKE IN BED, INTERMITTENTLY MOANING. REPOSITIONED IN BED, TURNED BED TO FACE PATIENT TOWARDS DOOR, ASSESSED TEMPERATURE: 98.0. PT NOT SHOWING INDICATORS OF PAIN AT THIS TIME. WILL CONTINUE TO ASSESS.
--- NOTE | 2020-06-16 05:07 | NUR ---
PATIENT STABLE THIS SHIFT. TYLENOL ADMINSTERED x1 FOR 99.9 TEMP, NOW DOWN TO 98.0. PATIENT INCREASINGLY VERBAL WITH STAFF. 2 PA WITH ROLL CHANGING. ABLE TO POSITION PT IN BOTH R AND L LATERAL POSITIONS. PT LESS AGITATED, MORE CALM WHEN HE CAN SEE THE NURSES STATION OR IS ACCOMPANIED BY 1-2 STAFF. IVF INFUSING WNL. NO DC PLAN AT THIS TIME.
--- NOTE | 2020-06-16 08:40 | NUR ---
Tylenol 650mg po and Oxycodone 5mg po admin with pudding at this time for flacc scale of 4/10. Caregiver at bedside.
--- NOTE | 2020-06-16 09:50 | NUR ---
Complaint Clerk, Carla, spoke to myself and Dr. Guzman. Pt's cg from [facility] has had a covid exposure. She has spoke Danna Schaffer, Patient Services/Risk Management. They would like [facility] Flight Inspector called and request a different cg, until Alea has been cleared. Called and spoke with Franchesca Smith, she states understanding. Requested if they could provide a different cg until Alea has a neg test. She is agreeable to provide different cg. Discussed my concern pt may not feel as well with Alea gone, as she is his business case analyst. Franchesca feels he does best with Alea, but can provide other cg pt is familiar with. She will call Alea. Update given to Franchesca from Dr. Guzman, she plans on repeat US and consult from Dr. Hernandez depending on results. To room and spoke with Alea, staff have given her a face shield over her hospital mask and hand santizier. She states she will return when she has been tested or senior automation engineer end of isolation period.
--- NOTE | 2020-06-16 10:06 | NUR ---
PATIENT AWAKE IN BED, CAREGIVER IN ROOM. VITALS AND I&OS CHARTED, INCONT OF URINE AND STOOL. LINENS CHANGED, PATIENT VERY RELAXED DURING BEDBATH. NO FEVER, BUT QUITE AGITATED, RN NOTIFIED. CAREGIVER LEAVING FOR PERSONAL REASONS- WILL SEND ANOTHER.
--- NOTE | 2020-06-16 10:24 | NUR ---
Patient repositioned at this time with RECREATION CENTER DIRECTOR assist. Pt yelling out. Head to toe assessment completed: brief is dry at this time, right later knee is pink and warm to touch. Patient's bed repositioned so the patient can see the nurses station. Patient bad no notable needs at this time. Bed alarm intact. IV site is patent at this time. Call light within reach.
--- NOTE | 2020-06-16 10:53 | NUR ---
Vancomycin trough level = 8.0. Change dosing to vancomycin 1000mg IV q 8 hrs, first dose @ 1000
--- NOTE | 2020-06-16 11:20 | NUR ---
PATIENT USED CALL LIGHT, WAS UNABLE TO STATE WHAT HE NEEDED. INCONT OF STOOL, CHANGED AND REPOSITIONED BY THIS SALES OPERATIONS ASSOCIATE AND SALES OPERATIONS ASSOCIATEMeliza KENYON. CALL LIGHT IS WITHIN REACH
--- NOTE | 2020-06-16 11:30 | NUR ---
Call from Alea. She has been notified by the Health Department to stay home until confirmed by testing she is covid -. She states by law, they have to provide 8 hours of care service to Emily per day. She is send a schedule with a staff member to notify what time they will be here. Requested she notify staff they must enter through the front door and put on hospital grade mask, have their temp take, and sanitize hands.
--- NOTE | 2020-06-16 12:29 | NUR ---
Caregiver from facility arrived to assist with patient care.
--- NOTE | 2020-06-16 15:15 | NUR ---
Tylenol 650mg po admin with pudding for flacc score of 4/10.
--- NOTE | 2020-06-16 15:44 | NUR ---
2PA COMPLETE BED CHANGE. PATIENT INCONT OF STOOL AND URINE. PATIENT CRYING OUT NONSTOP FOR LAST 20 MINUTES, RN NOTIFIED. BED ALARM ON. DVD PLAYING STARWARS, CALL LIGHT IN REACH, PATIENT FLOATED WITH PILLOWS FOR COMFORT.
--- NOTE | 2020-06-16 15:50 | NUR ---
Notified by Railroad Car Inspector Dr. Hernandez has scheudled Emily for surgery tomorrow. Consent is at the desk. Called Franchesca Smith and she states pt does not have anyone who can sign and does not have HCA. She will notify the Comittee who makes decisions for patient care. She will try to set up a meeting tomorrow and would like Dr. Hernandez to answer their questions. Asked if there is any where to forego the meeting as I am concerned to withhold surgery for an I&D. She will call Chris Gamble from [facility] and call me back. I asked if they need questions answered if they can let me know and I can get a response from Dr. Hernandez and read the answers. Updated he is not as readily available as our hospitalist as he is in surgery.
--- NOTE | 2020-06-16 16:00 | NUR ---
Call from Franchesca, they will waive the meeting in the interest of not withholding treatment. They have found a HCA and she will sign in the am.
--- NOTE | 2020-06-16 16:18 | NUR ---
Oxycodone 10mg po admin for pain.
--- NOTE | 2020-06-16 17:39 | NUR ---
Care provider at bedside. Patient sleeping, respirations even and non labored. IV patent, vanco IV started. Patient close to RN station. Call light within reach.
--- NOTE | 2020-06-16 18:04 | NUR ---
PATIENT FINALLY RESTING, EYES CLOSED. DINNER ON BEDSIDE TABLE, CAREGIVER WILL BE BACK. VITALS AND I&OS CHARTED, PATIENT WOKE BRIEFLY AND BACK TO SLEEP. CALL LIGHT IN REACH
--- NOTE | 2020-06-16 18:09 | NUR ---
PATIENT STABLE THIS SHIFT. OXYCODONE PRN FOR RIGHT KNEE PAIN. LR @75ML/HR. VANCO IV IN USE. Q2HR TURN. INCONTINENT. PATIENT LESS AGITATED WHEN CARE PROVIDERS FROM FACILITY ARE IN ROOM. NPO AT 0000.
--- NOTE | 2020-06-16 19:15 | NUR ---
SHIFT REPORT RECIEVED. PT LYING IN BED. CDI ALLEVYN ON R SIDE OF HIP. SWELLING ON R KNEE WITHIN THE OUTLINE OF SWELLING. FAMILY MEMBER IN ROOM, CALL LIGHT WITHIN REACH. NO FURTHER CONCERNS AT THIS TIME.
--- NOTE | 2020-06-16 20:50 | NUR ---
PT LYING IN BED. ASSESSMENT COMPLETE, VS STABLE AND I AND O'S DONE. PT IS NONVERBAL AT BASELINE. PT INCONT OF URINE. BED CHANGE COMPLETE, NEW DEPENDS IN PLACE. YELLING NOTED. IV ABX GIVEN, SITE WNL. PRN PAIN MEDICATIONS GIVEN ALONG WITH SCHEDULED MEDICATIONS. HOB ELEVATED, NO ISSUES OF MEDICATIONS ADMINISTRATION NOTED. CALL LIGHT WITHIN REACH, BED ALARM ON. NO INCREASE IN SWELLING NOTED.
--- NOTE | 2020-06-16 21:30 | NUR ---
IN RM TO GET VITALS, I&OS IN, REASSURING PT THE WHOLE TIME, PT APEARS TO BE IN PAIN, NONVERBAL, CANNOT EXPRESS, MEDS HAVE BEEN GIVE EARLIER AND PT IS BEGINING TO RELAX,
--- NOTE | 2020-06-16 23:13 | NUR ---
PT RESTING QUIETLY IN BED WITH EYES CLOSED, RESPIRATIONS REMAIN EVEN AND UNLABORED. NO DISTRESS NOTED, PT APPEARS COMFORTABLE AT THIS TIME. BED ALARM ON FOR SAFETY. IV FLUIDS INFUSING, SITE WNL.
--- NOTE | 2020-06-17 00:05 | NUR ---
PT NPO PER MD ORDERS. PO FLUIDS REMOVED FROM BEDSIDE. CALL LIGHT IN REACH.
--- NOTE | 2020-06-17 01:10 | NUR ---
PT INCONTINENT OF URINE, [place] [facility]ARE AND FRESH ATTENDS IN PLACE. REDDNESS TO BUTTOCKS, BLANCHABLE. WITH HELP FROM GM SEN AND MELI LAGOS, PT BOOSTED IN BED AND REPOSITIONED. PILLOW PLACED BETWEEN BLE, BASELINE CONTRACTIURES NOTED. PT REMIANS NONVERBAL WITH INTERMITTENT YELLING NOTED. HOB REMAINS ELEVATED. IV FLUIDS INFUSING, SITE WNL. BED ALARM ON AND CALL LIGHT IN REACH.
--- NOTE | 2020-06-17 02:04 | NUR ---
SCHEDULED IV VANCO INFUSING, IV SITE TO LEFT FOREARM SCHEDULED TO BE ROTATED. PT REMAINS NONVERBAL AND JERKY WITH MOVEMENTS. DISCUSSED WITH POWER SYSTEMS ENGINEER KAMRYN AND AUDIT MACHINE OPERATOR LONDON, PER NURSING JUDGEMENT WILL KEEP CURRENT IV IN PLACE. IV SITE WNL, FLUSHES EASILY NO REDDNESS OR SIGNS OF INFILTRATION NOTED. ASSESSMENT ALSO COMPLETE, INTERMITTENT MOANING NOTED. HOB REMAINS ELEVATED. REDDNESS TO RIGHT KNEE REMAINS WITHIN OUTLINE. WARM TO THE TOUCH AND RED IN COLOR. GENERALIZED EDEMA ALSO NOTED. WILL MONITOR. CALL LIGHT IN REACH.
--- NOTE | 2020-06-17 02:39 | NUR ---
IN RM TO CHANGE PT OF INCT, WIPED PT, NEW ATTENDS ON, PT BOOTED IN BED, CRYSTAL ADDED,
--- NOTE | 2020-06-17 02:41 | NUR ---
PRN PAIN MEDICATION GIVEN FOR SIGNS OF INCREASED PAIN, PT REMAINS NONVERBAL. MED CRUSH AND GIVEN IN SMALL SIP OF WATER. DR COOK AWARE AND OKAY. INCONTINENT OF URINE, YOLIS CASING IN LINE FEEDER IN ROOM TO HELP WITH COMPLETE BED CHANGE. DR COOK AT RN STATION, UPDATED WITH CARE GIVEN THIS SHIFT. DR COOK IN TO SEE PT. CALL LIGHT IN REACH AND BED IN LOW POSITION, ALARM ON.
--- NOTE | 2020-06-17 03:03 | NUR ---
SPOKE TO DR COOK REGARDING IV SITE AND SCHEDULED ROTATION. PER DR COOK, OKAY TO LEAVE CURRENT IV IN PLACE LONG SITE IS WORKING APPROPERIATELY.
--- NOTE | 2020-06-17 04:55 | NUR ---
IV PUMP ALARMING, ISSUE RESOLVED. IV FLUIDS INFUSING, SITE WNL. OCCASSIONAL GRIMACING NOTED, PT RESTING IN BED WITH HOB ELEVATED. BED ALARM ON, CALL LIGHT IN REACH.
--- NOTE | 2020-06-17 06:21 | NUR ---
in room with moriah fernandes, pt incontinent of urine. complete bed change complete. after boosting pt in bed, pt voided again. another bed change done with dry attends. attends fully soaked with first attends. new iv placed to left forearm, pt tolerated well. brisk blood return noted. iv fluids infusing, site wnl. room tided, vss. i&o's done. hob elevated and bed alarm on.
--- NOTE | 2020-06-17 06:50 | NUR ---
PT CONTINUES TO MOAN AND YELL IN BED, APPEARS AGITATED AND IN PAIN, PRN PAIN MEDICATION GIVEN (SEE EMAR). MED CRUSHED AND GIVEN WITH SIP OF WATER. PT TOLERATED WELL, HOB ELEVATED IN PLACE. NO ISSUES WITH SWALLOWING NOTED. BED ALARM ON AND PT IN VIEW OF RN STATION.
--- NOTE | 2020-06-17 07:10 | NUR ---
Report from Bhavik Sanchez RN. Patient restless and yelling out in bed. Has been giving PRN analgesic recently. No incontinence noted at this time. Call light in reach, bed rails elevated and bed alarm on.
--- NOTE | 2020-06-17 07:30 | NUR ---
Received signed consent and HCA paper work. Awaiting Dr. Carter to request he call and case monitor and recovery assistant for update.
--- NOTE | 2020-06-17 07:54 | NUR ---
Dr. Carter in and updated to need for HCA and request by rise for him to call display department manager, Holly and assistant baseball coach, Franchesca Smith. Consent given and he called and explained procedure. Holly Fortune, Plant Taxonomist, medical case worker [phone].
--- NOTE | 2020-06-17 09:18 | NUR ---
Assessment completed. Incontinent of large amount of urine. Brief changed and clyde-care provided. Linens changed. Sitter in room with patient. Bed rails up and call light in reach.
--- NOTE | 2020-06-17 10:24 | NUR ---
lYING IN BED ON LEFT SIDE. NO SIGNS OF PAIN OR DISCOMFORT. BED RAILS UP.
--- NOTE | 2020-06-17 12:19 | NUR ---
Lying on left side at this time. Eyes closed. Respirations even and unlabored. Allowed to rest at this time. Call light in reach, sitter in room with patient. Patient not incontinent at this time.
--- NOTE | 2020-06-17 14:13 | NUR ---
Taken to surgery in bed by Papi Cha RN.
--- NOTE | 2020-06-17 15:33 | NUR ---
06/17/20 1533 Sheets,Radha 1524 PT ARRIVED TO PACU DECREASED BP AND VALET RUNNER AWARE, FLUIDS INCREASED. RESP EVEN AND UNLABORED. PT NONAROUSABLE TO TACTILE STIMULI. PT RESTING IN LEFT SIDE.
--- NOTE | 2020-06-17 16:00 | NUR ---
Returns from surgery in bed. Assessment completed. Vitals obtained.
--- NOTE | 2020-06-17 17:06 | NUR ---
Dressing remains clean, dry and intact. PRN analgesic given with AM medications.
--- NOTE | 2020-06-17 18:24 | NUR ---
Sweating, blankets removed. Decreased yelling out noted. Dressing remains clean, dry and intact.
--- NOTE | 2020-06-17 19:30 | NUR ---
RECEIVED REPORT AT 1900, PT WAS SLEEPING AT THAT TIME. CAREGIVER IN ROOM.
--- NOTE | 2020-06-17 21:00 | NUR ---
PT HAD ANOTHER BM, PT WAS CHANGED AND TURNED. HIS AGITATION IS INCREASING NOW. WILL CONTINUE TO MONITOR AND GIVE HIM SOME PAIN MEDICATION IF NEEDED. V/S ARE WDL, URINE OUTPUT IS ADEQUATE, DRESSING ON RIGHT KNEE IS C/D/I. PEDIS PULSES ARE +2. WILL CONTINUE TO MONITOR.
--- NOTE | 2020-06-17 21:06 | NUR ---
PT IS RESTING COMFORTABLY IN BED WITH PRIMARY RN CAMILLE IN ROOM GIVING HIS EVENING MEDICATIONS.
--- NOTE | 2020-06-17 21:08 | NUR ---
PT STATES SHE IS DOING GOOD, PRIMARY RN IS IN ROOM WITH PT AT THIS TIME. SHE DENIES NEEDS.
--- NOTE | 2020-06-17 22:15 | NUR ---
IN RM WITH RN TO BOOST PT UP IN BED, CHANGED PT DUT TO INCT OF URINE, NEW GOWN ON, CHUX DOWN, BLANKETS UP, LEAVING PT TO REST
--- NOTE | 2020-06-17 23:12 | NUR ---
PT DID RECEIVED PRN OXY AND SINCE HAS SETTLED DOWN. WILL CONTINUE TO MONITOR.
--- NOTE | 2020-06-18 00:09 | NUR ---
PT IS SLEEPING. NO NEW CONCERNS NOTED.
--- NOTE | 2020-06-18 01:39 | NUR ---
ALL LOBES ARE CLEAR, V/S ARE WDL, RIGHT KNEE DRESSING IS C/D/I, PT IS DRY AT THIS TIME AND DOES NOT NEED TO BE CHANGED. URINE OUTPUT IS STILL ADEQUATE. NO NEW CONCERNS NOTED.
--- NOTE | 2020-06-18 03:28 | NUR ---
PT HAD ANOTHER INCONTINENT VOID AND BM. PT BRIEF WAS CHANGED. PRN OXY WAS ALSO GIVEN SINCE PT WAS AGITATED AGAIN. WE TRIED TO TURN PT WELL BUT PT KEPT TURING TO HIS RIGHT SIDE.
--- NOTE | 2020-06-18 04:29 | NUR ---
PT AT THIS TIME IS STILL AGITATED AND APPEARS RESTLESS. WILL CONTINUE TO MONITOR.
--- NOTE | 2020-06-18 06:25 | NUR ---
PT HAD TIMES OF AGITATION THIS SHIFT. PRN PAIN MEDICATION DID HELP AT TIMES. RIGHT KNEE DRESSING IS C/D/I. URINE OUTPUT HAS BEEN ADEQUATE THIS SHIFT. PT ALSO HAD SEVERAL STOOLS THIS SHIFT AND DAY SHIFT YESTERDAY. PEDIS PULSES ARE +2, RIGHT LEG HAS SOME EDEMA PRESENT. BP'S AT TIMES ARE SOFT BUT OVERALL WDL. PT HAS BEEN AFEBRILE ALL SHIFT. PT WAS TURNED SEVERAL TIMES THIS SHIFT WITH EACH CHANGE OF HIS BRIEF. PT HOWEVER HAS A TENDENCY TO ALWAYS END UP ON HIS RIGHT SIDE.
--- NOTE | 2020-06-18 07:06 | NUR ---
Report from Chris Lynch RN. Patient yelling out. Lying in bed. No incontinence noted at this time. Call light in reach, bed rails up X2.
--- NOTE | 2020-06-18 08:30 | NUR ---
Patient incont of urine. Turned to left side, brief changed. patient laghing and in good spirits,gave a "high 5". Face and hands washed, wet blankets replaced.
--- NOTE | 2020-06-18 09:42 | NUR ---
AM medications administered. Takes without difficulty. Call light in reach. Assessment completed. PRN Tylenol given for pain control. Sitter at bedside. Sips of thickened water given in between medications. Bed rails up.
--- NOTE | 2020-06-18 10:04 | NUR ---
PATIENT IN BED, MOSTLY QUIET, SMILING. CAREGIVER STATES HE SEEMS "MUCH BETTER TODAY". PLAN FOR DISCHARGE IS TO RETURN HOME WITH CAREGIVERS.
--- NOTE | 2020-06-18 11:20 | NUR ---
Lying in bed on left side. Eyes closed, respirations even and unlabored. Allowed to rest at this time.
--- NOTE | 2020-06-18 12:18 | NUR ---
PT ASLEEP, CHECKED ON CG-DOING WELL. WILL FOLLOW
--- NOTE | 2020-06-18 13:28 | NUR ---
Dr. Carter in to see patient. Dressing removed and site assessed by Dr. Carter and this nurse. New dressing of dry gauze and kerlix applied to right knee. Patient incontinent of large amount of urine. Changed, bed bath completed, linens and gown changed.
--- NOTE | 2020-06-18 14:16 | NUR ---
Patient lying in bed, yells out occasionally. Sitter in room with patient.
--- NOTE | 2020-06-18 14:17 | NUR ---
PATIENT HAS BEEN VISIBLY UPSET AND CRYING OUT FOR SOME TIME. THIS SOCIAL SERVICES TECHNICIAN FED HIM SOME ICE CREAM, PATIENT NOW CALM AND WATCHING HIS MOVIE.
--- NOTE | 2020-06-18 15:00 | NUR ---
IN TO CHECK ON PATIENT, CAREGIVER IN ROOM. THIS ARMATURE WINDER REPAIRER SPEAKING TO CAREGIVER ABOUT TIPS TO CALM PATIENT AT NIGHT, SHE REPORTS PATIENT IS AFRAID OF THE DARK AND LIKES TO SLEEP WITH A LIGHT BLANKET RO SHEET UP OVER HIS HEAD. CAREGIVER ALSO REPORTS, PATIENT OFTEN HAS A GASSY/UPSET STOMCH FROM "HOLDING IN HIS FARTS" PASSED THIS INTO GM CEJA. CALL LIGHT IN REACH, NO OTHER NEEDS AT THIS TIME
--- NOTE | 2020-06-18 18:19 | NUR ---
Incontinent of bowel and bladder multiple times today. IV fluids DC'd. Rests intermittently throughout the day. PRN medication controls pain. Yells out, normal behavior for patient.
--- NOTE | 2020-06-18 18:57 | NUR ---
PATIENT AWAKE IN BED, CAREGIVER IN ROOM. INCONT OF URINE AND STOOL. WARM BLANKET PROVIDED. CALL LIGHT IN REACH
--- NOTE | 2020-06-18 19:00 | NUR ---
CAREGIVER LEFT PATIENT AND BED COVERED IN FOOD AND SNOT AFTER DINNER. PATIENT CLEANED UP AND FRESH PILLOWCASE ON. PATIENT ON LEFT SIDE WITH PILLOW UNDER HIP AND PILLOW BETWEEN KNEES.
--- NOTE | 2020-06-18 19:30 | NUR ---
RECEIVED REPORT AT 1900, PT WAS AWAKE IN BED BUT QUIET. NO NEW CONCERNS NOTED.
--- NOTE | 2020-06-18 19:42 | NUR ---
PT RESTING IN BED YELLING. OVERCOIL STEPPER ENTERS THE ROOM, PT DOES NOT STOP YELLING WHILE OVERCOIL STEPPER INTERACTING. MOVIE PLAYING AT PT'S BEDSIDE. WHITE BOAD UPDATED. CALL LIGHT IN REACH.
--- NOTE | 2020-06-18 21:00 | NUR ---
V/S ARE WDL WITH A BIT OF A SOFT BP. LOBES ARE CLEAR, RIGHT KNEE DRESSING IS C/D/I, PT WAS TURNED AND BRIEF WAS CHANGED. PT HAD A BM AND A VOID, BED LINEN WERE CHANGED ALSO. PT DID SAY STATE "COLD" AND "HURT". PRN PAIN MEDICATION WAS GIVEN AND WARM BLANKETS WERE PROVIDED. OVERALL PT DOES APPEAR MORE ALERT THAN LAST NIGHT AND IS ABLE TO SPEAK SOME WORDS.
--- NOTE | 2020-06-18 21:40 | NUR ---
WITH THE HELP OF GM OBRIEN WE DID A COMPLETE BED CHANGE, DUE TO INCONTINENCE OF URINE AND A BM. ROOM CLEANED UP AND GARBAGE EMPTIED. BEDSIDE TABLE AND CALL LIGHT IN REACH.
--- NOTE | 2020-06-18 21:43 | NUR ---
VITALS AND I&OS DONE AND CHARTED.
--- NOTE | 2020-06-19 | NUR ---
PT IS SLEEPING AT THIS TIME. NO NEW CONCERNS NOTED.
--- NOTE | 2020-06-19 04:05 | NUR ---
PT HAD ANOTHER LARGE VOID AND A BM. PT WAS CHANGED AND TURNED. PT STATED THE WORD "HURT" AGAIN. PRN PAIN MEDICATION WAS GIVEN. PT IS AGITATED AT THIS TIME. ALL LOBES WERE CLEAR, DRESSING ON RIGHT KNEE IS C/D/I, THERE IS STILL SOME EDEMA PRESENT ON RIGHT LEG.
--- NOTE | 2020-06-19 05:42 | NUR ---
PT STILL HAD GOOD URINE OUTPUT WITHOUT IV FLUIDS ALL NIGHT. PT HAD BM'S X2 THIS SHIFT FOR FAR. RIGHT KNEE DRESSING IS C/D/I. PT WAS VERBAL AT TIMES WITH WORDS SUCH "HURT" "COLD". PT AT TIMES WAS STILL VERY AGITATED AND DOES BETTER IF SOMEONE IS IN THE ROOM WITH HIM. LOBES ARE CLEAR, PEDIS PULSES +2, SLIGHT EDEMA ON RIGHT LEG. PT WAS TURNED SEVERAL TIMES THIS SHIFT. OVERALL NO NEW CONCERNS WERE NOTED THIS SHIFT.
--- NOTE | 2020-06-19 05:43 | NUR ---
VITALS AND I&OS DONE AND CHARTED. GARBAGES EMPTIED. ROOM CLEANED UP. BEDSIDE TABLE AND CALL LIGHT IN REACH.
--- NOTE | 2020-06-19 06:18 | NUR ---
STARTED PT'S MOVIE FOR HIM TO WATCH. HELPED HIM TO REPOSITION IN BED. PT CONTINUES TO SCREAM OUT.
--- NOTE | 2020-06-19 07:35 | NUR ---
REPORT RECIEVED FROM FINANCIAL SERVICES ASSISTANT [place].
--- NOTE | 2020-06-19 08:53 | NUR ---
MORNING ASSESSMENT DONE, CAREGIVER IN ROOM AND HELPING PATIENT EAT BREAKFAST. PATIENT APPEARS CALM AND IN NO DISTRESS AT THIS TIME. MORNING MEDICATIONS GIVEN. PLAN TO CHANGE ATTENDS, RIGHT KNEE DRESSING, AND REPOSITION PATIENT AFTER BREAKFAST.
--- NOTE | 2020-06-19 10:19 | NUR ---
RIGHT KNEE DRESSING CHANGE DONE. LOOP DRAIN IS VISABLE AND INTACT. SMALL AMOUNT OF YELLOW DRAINAGE NOTED ON OLD DRESSING. GUAZE SPONGE PLACED BEHIND KNEE, COVERED WITH GUAZE WRAP. PATIENT TOLERATED DRESSING CHANGE WELL, AREA APPEARS LESS RED THAN IN PREVIOUSE DAYS. JENNY FLEMING WAS IN ROOM FOR DRESSING CHANGE, EDUCATED ON DAILY DRESSING CHANGES.
--- NOTE | 2020-06-19 12:14 | NUR ---
PATIENT GIVEN A WARM BLANKET, IS SLEEPING AT THIS TIME.
--- NOTE | 2020-06-19 19:30 | NUR ---
RECEIVED REPORT AT 1900, FOUND PT IN BED WITH ECONOMIC DEVELOPMENT SPECIALIST AT BEDSIDE. PT WAS CALM AT THAT TIME.
--- NOTE | 2020-06-19 21:30 | NUR ---
V/S ARE WDL, LOBES ARE CLEAR, ABD SOUNDS PRESENT, DRESSING IS C/D/I. PT WAS ABIT AGITATED AND PRN PAIN MEDICATION WAS GIVEN AFTER PT STATED THE WORD "HURT". THERE IS ALSO A NEW RED AREA ON HIS RIGHT ELBOW WHICH ALSO HAS EDEMA PRESENT. PT WAS CHANGED AND RE-POSITIONED. WILL CONITUE TO MONITOR.
--- NOTE | 2020-06-19 21:45 | NUR ---
THIS ROLL HAULER AND PRIMARY RN CAMILLE CHANGED PATIENT'S ATTENDS AND REPOSITIONED.
--- NOTE | 2020-06-20 | NUR ---
PT IS SLEEPING AT THIS TIME.
--- NOTE | 2020-06-20 01:47 | NUR ---
PT AT THIS TIME IS SLEEPING. NO NEW COCNERNS WERE NOTED AT THIS TIME.
--- NOTE | 2020-06-20 04:00 | NUR ---
PT IS VERY AGITATED AT THIS TIME. PT HAD A VERY LARGE VOID AND A BM. PT WAS CHANGED AND TURNED. LUNG SOUNDS WERE NOT ASCULTATED TO TO AGIATION OF PT. RIGHT KNEE DRESSING IS STILL C/D/I. REDNESS ON RIGHT ELBOW IS STILL PRESENT AND UNCHANGED. NO NEW CONCERNS WERE NOTED.
--- NOTE | 2020-06-20 05:26 | NUR ---
PT AT START OF SHIFT WAS AGITATED. PT WAS CHANGED AND PRN PAIN MEDICATION WAS GIVEN. DRESSING ON RIGHT KNEE IS C/D/I. IT WAS NOTED THAT PT NOW HAS SOME REDNESS WITH EDEMA PRESENT ON HIS RIGHT ELBOW. PT WAS TURNED SEVERAL TIMES WELL. PT AWOKE AT AROUND 0350 AND HAS BEEN AGITATED EVER SINCE. PRN PAIN MEDICATION WAS GIVEN AGAIN BUT TO NO AVAIL.
--- NOTE | 2020-06-20 07:20 | NUR ---
Report from Chris Lynch RN. Patient awake. No signs of pain or discomfort. Smiles at staff. Bed rails up, call light in reach.
--- NOTE | 2020-06-20 08:29 | NUR ---
Incontinent of urine. Brief changed, pericare completed. Repositioned in bed to eat.
--- NOTE | 2020-06-20 09:01 | NUR ---
AM medications administered, takes without difficulty. No signs of pain noted at this time. Assessment completed. Caregivers verbalize patient is able to walk. Attempt to walk to bathroom with 2 person assist. Very weak, does not follow directions, unable to ambulate. Pivot transfers with 2 person assist. Showered. Up to recliner, new dressing applied to right leg. Call light in reach, caregiver in room.
[2020-06-20] MEDS ORDERED: DOXYCYCLINE HY100 MG PO (10:57)
--- NOTE | 2020-06-20 11:27 | NUR ---
THIS MORNING HIS CAREGIVER AND GAVE HIM A SHOWER. THE NURSE MADE HIS BED. THAN AFTER HIS SHOWER THE NURSE AND I AND CAREGIVER TRANSFERED HIM FROM THE SHOWER CHAIR TO THE RECLINER. PUT HIS GOWN ON AND TAPED ATTEND. AFTER A FEW MINUTES SHE THOUGHT IT WASN'T SAFE SO WE PUT THE RECLINER NEXT TO HIS BED AND TRANSFERED HIM OVER. CAREGIVER ALSO FED HIM BREAKFAST.
--- NOTE | 2020-06-20 11:57 | NUR ---
Medications administered as prescribed. Takes without difficulty. Sitter in room at this time. Spoke with staff at [facility], will plan to DC patient around 1400.
--- NOTE | 2020-06-20 12:30 | NUR ---
DC instructions given to [facility] staff member, Richelle in person and via phone. Verbalize understanding.
== END 2020-06-20 14:25 | disposition home or self-care (01) | DRG 854 ==
LOC: ED 20:37 → MS 20:39
PROVIDERS: Surgery; ADMIT Student in an Organized Health Care Education/Training Program; ATTEND Student in an Organized Health Care Education/Training Program
PROC: 0SJC3ZZ Inspection of Right Knee Joint, Percutaneous Approach (ICD-10-PCS; 2020-06-13)
PROC: 0J9N0ZZ Drainage of Right Lower Leg Subcutaneous Tissue and Fascia, Open Approach (ICD-10-PCS; principal; 2020-06-17 12:30)
DX: A41.01 Sepsis due to Methicillin susceptible Staphylococcus aureus (principal); L03.115 Cellulitis of right lower limb; L02.415 Cutaneous abscess of right lower limb; E87.1 Hypo-osmolality and hyponatremia; Z20.828 Contact with and (suspected) exposure to other viral communicable diseases; F43.10 Post-traumatic stress disorder, unspecified; K59.00 Constipation, unspecified; D64.9 Anemia, unspecified; F20.9 Schizophrenia, unspecified; R62.50 Unspecified lack of expected normal physiological development in childhood; F79 Unspecified intellectual disabilities; D69.6 Thrombocytopenia, unspecified; Z79.899 Other long term (current) drug therapy
CPT/HCPCS: 36415; 51701; 71045; 73560; 76881; 76882; 80048; 80053; 80202; 81001; 83605; 83735; 85025; 85610; 85651; 85730; 87040; 87088; 96366; 96376; 99285-25; C9803; G0378; J0696; J1170; J2405; J2704; J3370; J7060; J7121

== ENCOUNTER 2021-02-27 15:11 | Emergency (ER) | payer OTHER ==
[~2021-02-27] VITALS: Ht 175.3 cm; Wt 57.6 kg
[~2021-02-27 15:11] MED LIST changes: +DIVALPROEX SOD500 MG PO; +DOXYCYCLINE HY100 MG PO; +GENTLE LAXATIVE5 M1 PO; +LITHIUM CARBON300 MG PO
--- OUTSIDE RECORDS SUMMARY | 2021-02-27 15:14 | XMS ---
PreManage Notification: YESENIA BRISCOE Security Security Control Assessor Events No recent Security Events currently on file CRITERIA MET - [facility] - [facility] - Has Care Guidelines CARE PROVIDERS FRANCISCA MCGARRY [facility] 12/06/2018-Current PHONE: [phone] Guidelines Source: [facility] [facility] [place] [place] Guidelines Date: 11/18/2019 Care Coordination: Receiving Mental health services through [employer]. Please contact [employer] for any mental health concerns:\T\nbsp; [id number]-[phone]\T\nbsp; [place] \T\nbsp; Crisis line at [phone].\T\nbsp; E.D. VISIT COUNT (12 MO.) 2 [facility] TOTAL 2 NOTE: Visits indicate total known visits. ED/UCC VISIT TRACKING (12 MO.) 02/27/2021 15:12 [facility] [place] TYPE: Emergency COMPLAINT: - KNEE INJ 06/12/2020 20:38 [facility] [place] TYPE: Emergency COMPLAINT: - LEFT LEG REDNESS/SWELLING INPATIENT VISIT TRACKING (12 MO.) 06/13/2020 09:[address] [facility] TYPE: Medical Surgical COMPLAINT: - R LEG CELLULITIS DIAGNOSES: - Post-traumatic stress disorder, unspecified - Hypo-osmolality and hyponatremia - Unspecified intellectual disabilities - Other rodent exterminator (current) drug therapy - Unspecified lack of expected normal physiological development in childhood - Sepsis due to Methicillin susceptible Staphylococcus aureus - Sepsis due to Methicillin susceptible Staphylococcus aureus - Anemia, unspecified - Contact with and (suspected) exposure to other viral communicable diseases - Constipation, unspecified - Post-traumatic stress disorder, unspecified - Cellulitis of right lower limb - Cutaneous abscess of right lower limb - Unspecified intellectual disabilities - Cutaneous abscess of right lower limb - Constipation, unspecified - Unspecified lack of expected normal physiological development in childhood - Schizophrenia, unspecified - Other rodent exterminator (current) drug therapy - Schizophrenia, unspecified - Anemia, unspecified - Contact with and (suspected) exposure to other viral communicable diseases - Thrombocytopenia, unspecified - Hypo-osmolality and hyponatremia - Thrombocytopenia, unspecified [email or web address]
[2021-02-27] MEDS ORDERED: CLONAZEPAM0.5 MG PO (15:39)
[2021-02-27] MEDS ORDERED: CEPHALEXIN500 M1 PO (17:40)
== END 2021-02-27 17:59 | disposition home or self-care (01) ==
LOC: ED 15:11
DX: L03.116 Cellulitis of left lower limb (principal); Z79.899 Other long term (current) drug therapy
CPT/HCPCS: 80053; 83605; 85025; 96365; 99283-25; J0696

== ENCOUNTER 2021-03-24 09:30 | Emergency (ER) | payer OTHER ==
[~2021-03-24] VITALS: Ht 175.3 cm; Wt 57.6 kg
[~2021-03-24 09:30] MED LIST changes: +CEPHALEXIN500 M1 PO; +CLONAZEPAM0.5 MG PO
--- OUTSIDE RECORDS SUMMARY | 2021-03-24 09:32 | XMS ---
PreManage Notification: YESENIA BRISCOE Security Bioinformatics Assistant Events No recent Security Events currently on file CRITERIA MET - PDM - [facility] - 2 Visits in 30 Days - [facility] - Has Care Guidelines CARE PROVIDERS FRANCISCA MCGARRY [facility] 12/06/2018-Current PHONE: [phone] Guidelines Source: [facility] [place] Guidelines Date: 11/18/2019 Care Coordination: Receiving Mental health services through [facility]. Please contact [facility] for any mental health concerns:\T\nbsp; Rqxstyjse-[phone]\T\nbsp; [place] \T\nbsp; Crisis line at [phone].\T\nbsp; E.D. VISIT COUNT (12 MO.) 3 [facility] TOTAL 3 NOTE: Visits indicate total known visits. ED/UCC VISIT TRACKING (12 MO.) 03/24/2021 09:30 [facility] [place] TYPE: Emergency COMPLAINT: - BLEEDING PENIS 02/27/2021 15:12 [facility] TYPE: Emergency COMPLAINT: - KNEE INJ DIAGNOSES: - Other usp (current) drug therapy - Cellulitis of left lower limb 06/12/2020 20:38 [facility] TYPE: Emergency COMPLAINT: - LEFT LEG REDNESS/SWELLING INPATIENT VISIT TRACKING (12 MO.) 06/13/2020 09:15 [facility] TYPE: Medical Surgical COMPLAINT: - R LEG CELLULITIS DIAGNOSES: - Post-traumatic stress disorder, unspecified - Hypo-osmolality and hyponatremia - Unspecified intellectual disabilities - Other usp (current) drug therapy - Unspecified lack of [...] in childhood - Schizophrenia, unspecified - Other usp (current) drug therapy - Schizophrenia, unspecified - Anemia, unspecified - Contact with and (suspected) exposure to other viral communicable diseases - Thrombocytopenia, unspecified - Hypo-osmolality and hyponatremia - Thrombocytopenia, unspecified [email or web address]
== END 2021-03-24 15:18 | disposition home or self-care (01) ==
LOC: ED 09:30
DX: N48.89 Other specified disorders of penis (principal)
CPT/HCPCS: 51702; 51798; 81001; 99283-25

== ENCOUNTER 2021-06-11 20:21 | Emergency (ER) | payer OTHER ==
[~2021-06-11] VITALS: Ht 175.3 cm; Wt 68.0 kg
--- OUTSIDE RECORDS SUMMARY | 2021-06-11 20:24 | XMS ---
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 ED/UCC VISIT TRACKING (12 MO.) 06/11/2021 20:22 [facility] TYPE: Emergency COMPLAINT: - RASH 03/24/2021 09:30 [facility] TYPE: Emergency COMPLAINT: - BLEEDING PENIS DIAGNOSES: - Other specified disorders of penis 02/27/2021 15:12 [facility] TYPE: Emergency COMPLAINT: - KNEE INJ DIAGNOSES: - Other prison (current) drug therapy - Cellulitis of left lower limb 06/12/2020 20:38 [facility] TYPE: Emergency COMPLAINT: - LEFT LEG REDNESS/SWELLING INPATIENT VISIT TRACKING (12 MO.) 06/13/2020 09:15 [facility] TYPE: Medical Surgical COMPLAINT: - R LEG CELLULITIS DIAGNOSES: - Post-traumatic stress disorder, unspecified - Hypo-osmolality and hyponatremia - Unspecified intellectual disabilities - Other lobsterman (current) drug therapy - Unspecified lack of [...] in childhood - Schizophrenia, unspecified - Other prison (current) drug therapy - Schizophrenia, unspecified - Anemia, unspecified - Contact with and (suspected) exposure to other viral communicable diseases - Thrombocytopenia, unspecified - Hypo-osmolality and hyponatremia - Thrombocytopenia, unspecified [email or web address]
[2021-06-11] MEDS ORDERED: NYSTATIN-TRIAMC15 GM TOP (21:04)
== END 2021-06-11 21:23 | disposition home or self-care (01) ==
LOC: ED 20:21
DX: B37.2 Candidiasis of skin and nail (principal); Z79.899 Other long term (current) drug therapy
CPT/HCPCS: 99282

== ENCOUNTER 2021-06-20 14:18 | Emergency (ER) | payer OTHER ==
[~2021-06-20] VITALS: Ht 175.3 cm; Wt 68.0 kg
[~2021-06-20 14:18] MED LIST changes: +NYSTATIN-TRIAMC15 GM TOP
--- OUTSIDE RECORDS SUMMARY | 2021-06-20 14:26 | XMS ---
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 - Visits in 30 Days CARE PROVIDERS [facility] 06/13/2021-Current PHONE: [phone] Care Guidelines exist for the following facilities: [facility] ( 11/18/2019 ) Venkatesh VISIT COUNT (12 MO.) [address] [place] [address] TOTAL 4 NOTE: Visits indicate total known visits. ED/UCC VISIT TRACKING (12 MO.) 06/20/2021 14:19 [facility] TYPE: Emergency COMPLAINT: - FEVER, RUNNY NOSE, COUGH 06/11/2021 20:22 [facility] TYPE: Emergency COMPLAINT: - RASH DIAGNOSES: - Rash and other nonspecific skin eruption - Other continuous churn buttermaker (current) drug therapy - Candidiasis of skin and nail 03/24/2021 09:30 [facility] TYPE: Emergency COMPLAINT: - BLEEDING PENIS DIAGNOSES: - Other specified disorders of penis 02/27/2021 15:12 [facility] TYPE: Emergency COMPLAINT: - KNEE INJ DIAGNOSES: - Other continuous churn buttermaker (current) drug therapy - Cellulitis of left lower limb INPATIENT VISIT TRACKING (12 MO.) No inpatient visits to display in this time frame [email or web address]
[2021-06-20] MEDS ORDERED: AMOXICILLIN500 M1 PO (19:11)
== END 2021-06-20 19:29 | disposition home or self-care (01) ==
LOC: ED 14:18
DX: K04.7 Periapical abscess without sinus (principal); Z20.822 Contact with and (suspected) exposure to COVID-19; Z79.899 Other long term (current) drug therapy
CPT/HCPCS: 51701; 71045; 80053; 81001; 83605; 85025; 99283-25; C9803; U0003

== ENCOUNTER 2021-07-01 07:05 | Day surgery (SDC) | payer OTHER ==
[~2021-07-01 07:05] MED LIST changes: +AMOXICILLIN500 M1 PO
--- NOTE | 2021-07-01 12:20 | NUR ---
07/01/21 1220 Maria Antonia Moya 1208 PATIENT ARRIVES TO PACU UNRESPONSIVE TO PAIN, ORAL AIRWAY IN PLACE. ALSO REQUIRES CONTINUOUS JAW THRUST BY RN TO MAINTAIN AIRWAY. RESP EVEN AND UNLABORED, MASK AT 6 LITERS. 1218 PATIENT CONTINUES TO BE UNRESPONSIVE TO PAIN. ORAL AIRWAY IN PLACE, CONTINUES TO REQUIRE JAW THRUST TO MAINTAIN AIRWAY. RESP EVEN AND UNLABORED, MASK CONTINUED AT 6 LITERS.
--- NOTE | 2021-07-01 14:15 | NUR ---
PT INCONTINENT OF STOOL AND URINE. CHANGED AND SKIN CARE GIVEN WITH HELP OF ROUTE SUPERVISOR. VITALS HAVE RETURNED TO BASELINE. DISCHARGE INSTRUCTIONS REVIEWED WITH CARE STAFF AND SIGNED PRIOR TO DISCHARGE. RX FOR PAIN MEDICATION GIVEN TO CAREGIVER. YESENIA IS VOCAL AND CALLS OUT / YELLS SEVERAL TIMES A MINUITE. MD STATES THIS IS UNLIKELY FROM PAIN DUE TO TYPE OF ANESTHETIC USED. PT TOOK SIPS OF WATER AND ATE A FEW BITES OF JELLO PRIOR TO DISCHARGE.
== END 2021-07-01 14:10 | disposition home or self-care (01) ==
LOC: DS 07:05 → OPS 07:05 → DS 09:00 → OPS 09:00
PROVIDERS: ATTEND Dentist General Practice
PROC: 0CDWXZ1 Extraction of Upper Tooth, Multiple, External Approach (ICD-10-PCS; 2021-07-01)
PROC: 0CRXXJ1 Replacement of Lower Tooth, Multiple, with Synthetic Substitute, External Approach (ICD-10-PCS; 2021-07-01)
PROC: 0CRWXJ1 Replacement of Upper Tooth, Multiple, with Synthetic Substitute, External Approach (ICD-10-PCS; 2021-07-01)
PROC: 0CDXXZ2 Extraction of Lower Tooth, All, External Approach (ICD-10-PCS; principal; 2021-07-01 09:00)
DX: K02.9 Dental caries, unspecified (principal); Z20.822 Contact with and (suspected) exposure to COVID-19
CPT/HCPCS: 00170; C9803; J0131; J1100; J2001; J2250; J2405; J2704; J3010; J7121; U0003

== ENCOUNTER 2021-09-05 09:29 | Emergency (ER) | payer OTHER ==
[~2021-09-05] VITALS: Ht 175.3 cm; Wt 62.6 kg
--- OUTSIDE RECORDS SUMMARY | 2021-09-05 09:34 | XMS ---
PreManage Notification: YESENIA BRISCOE Security Grinder Chipper Events No recent Security Events currently on file CRITERIA MET - PDMP CARE PROVIDERS [facility] 06/13/2021-Current PHONE: [phone] Care Guidelines exist for the following facilities: [facility] ( 11/18/2019 ) Venkatesh VISIT COUNT (12 MO.) 6 [facility] TOTAL 6 NOTE: Visits indicate total known visits. ED/UCC VISIT TRACKING (12 MO.) 09/05/2021 09:30 [facility] TYPE: Emergency COMPLAINT: - FEVER, NOT FEELING 07/11/2021 21:06 [facility] TYPE: Emergency COMPLAINT: - VOMITING DIAGNOSES: - Other care home (current) drug therapy - Postprocedural hemorrhage of a digestive system organ or structure following a digestive system procedure - Other dental procedure status - Vomiting, unspecified 06/20/2021 14:19 [facility] TYPE: Emergency COMPLAINT: - FEVER, RUNNY NOSE, COUGH DIAGNOSES: - COUGH, UNSPECIFIED - Other care home (current) drug therapy - Periapical abscess without sinus 06/11/2021 20:22 [facility] [place] TYPE: Emergency COMPLAINT: - RASH DIAGNOSES: - Rash and other nonspecific skin eruption - Other care home (current) drug therapy - Candidiasis of skin and nail 03/24/2021 09:30 [facility] [place] [facility] TYPE: Emergency COMPLAINT: - BLEEDING PENIS DIAGNOSES: - Other specified disorders of penis 02/27/2021 15:12 [facility] [place] TYPE: Emergency COMPLAINT: - KNEE INJ DIAGNOSES: - Other care home (current) drug therapy - Cellulitis of left lower limb INPATIENT VISIT TRACKING (12 MO.) No inpatient visits to display in this time frame [email or web address]
== END 2021-09-05 11:55 | disposition home or self-care (01) ==
LOC: ED 09:29
DX: U07.1 COVID-19 (principal); Z79.899 Other long term (current) drug therapy
CPT/HCPCS: 71045; 80503; 85025; 99283-25; J7040; U0003

== ENCOUNTER 2022-10-24 22:16 | Emergency (ER) | payer OTHER ==
[~2022-10-24] VITALS: Ht 175.3 cm; Wt 63.5 kg
[~2022-10-24 22:16] MED LIST changes: +ACETAMINOPHEN325 M1 PO; +BISACODYL10 MG PR; +CALMOSEPTINE OI71 GM TOP; +CLONAZEPAM1 MG PO; +DOCUSATE SODIU100 MG PO; +DOXYCYCLINE MO100 MG PO; +FIBER350 GM PO; +LITHIUM CARBON150 MG PO; +OMEPRAZOLE20 MG PO; -ZYPREXA ZYDIS15 MG PO; +ZYPREXA10 MG PO
--- OUTSIDE RECORDS SUMMARY | 2022-10-24 22:18 | XMS ---
PreManage Notification: YESENIA BRISCOE Security Surveying Crew Rodman Events No recent Security Events currently on file CRITERIA MET - PDMP CARE PROVIDERS -, [place]- Dentist: Leaf [facility] PHONE: [phone] [facility]Current PHONE: Unknown Care Guidelines exist for the following facilities: [facility] ( 11/18/2019 ) Venkatesh VISIT COUNT (12 MO.) [address] [facility] TOTAL 2 NOTE: Visits indicate total known visits. ED/UCC VISIT TRACKING (12 MO.) 10/24/2022 22:16 [facility] TYPE: Emergency COMPLAINT: - URINATING BLOOD 02/20/2022 17:09 [facility] TYPE: Emergency COMPLAINT: - ALTERED INPATIENT VISIT TRACKING (12 MO.) 02/20/2022 17:[address] [facility] TYPE: Observation COMPLAINT: - ENCEPHALOPATHY, LITHIUM TOXICITY DIAGNOSES: - Post-traumatic stress disorder, unspecified - Metabolic encephalopathy - Unspecified lack of expected normal physiological development in childhood - Other constipation - Toxic effect of other metals, accidental (unintentional), initial encounter - Contact with and (suspected) exposure to COVID-19 - Bipolar disorder, unspecified [email or web address]
[2022-10-24] MEDS ORDERED: NYAMYC15 GM TOP (22:33)
[2022-10-24] MEDS ORDERED: AZELASTINE HCL6 ML OPTH (22:33)
[2022-10-24] MEDS ORDERED: BACLOFEN5 MG PO (22:33)
[2022-10-24] MEDS ORDERED: BACTRIM DS TAB1 EACH PO (23:43)
== END 2022-10-25 00:01 | disposition home or self-care (01) ==
LOC: ED 22:16
DX: N30.01 Acute cystitis with hematuria (principal); F43.10 Post-traumatic stress disorder, unspecified; G80.9 Cerebral palsy, unspecified; Z79.899 Other long term (current) drug therapy
CPT/HCPCS: 36415; 51701; 80053; 81001; 85025; 99283-25; A9270

== ENCOUNTER 2022-11-24 12:00 | Emergency (ER) | payer OTHER ==
[~2022-11-24] VITALS: Ht 175.3 cm; Wt 63.5 kg
[~2022-11-24 12:00] MED LIST changes: +AZELASTINE HCL6 ML OPTH; +BACLOFEN5 MG PO; +NYAMYC15 GM TOP
--- OUTSIDE RECORDS SUMMARY | 2022-11-24 12:02 | XMS ---
PreManage Notification: YESENIA BRISCOE Security Educational Diagnostician Events No recent Security Events currently on file CRITERIA MET - PDMP CARE PROVIDERS -, [place]- Dentist: [facility] PHONE: [phone] [facility]Current PHONE: Unknown Care Guidelines exist for the following facilities: [facility] ( 11/18/2019 ) Venkatesh VISIT COUNT (12 MO.) [address] [facility] TOTAL 3 NOTE: Visits indicate total known visits. ED/UCC VISIT TRACKING (12 MO.) 11/24/2022 12:01 [facility] TYPE: Emergency COMPLAINT: - UNABLE TO URINATE 10/24/2022 22:16 [facility] TYPE: Emergency COMPLAINT: - URINATING BLOOD DIAGNOSES: - Post-traumatic stress disorder, unspecified - Other alf (current) drug therapy - Acute cystitis with hematuria - Hematuria, unspecified - Urinary tract infection, site not specified - Cerebral palsy, unspecified 02/20/2022 17:09 [facility] TYPE: Emergency COMPLAINT: - ALTERED INPATIENT VISIT TRACKING (12 MO.) 02/20/2022 17:10 [facility] TYPE: Observation COMPLAINT: - ENCEPHALOPATHY, LITHIUM TOXICITY DIAGNOSES: - Post-traumatic stress disorder, unspecified - Metabolic encephalopathy - Unspecified lack of expected normal physiological development in childhood - Other constipation - Toxic effect of other metals, accidental (unintentional), initial encounter - Contact with and (suspected) exposure to COVID-19 - Bipolar disorder, unspecified [id number]
[2022-11-24] MEDS ORDERED: FLOMAX0.4 MG PO (15:29)
[2022-11-24 16:00] VITALS: BP 122/84
== END 2022-11-24 16:00 | disposition home or self-care (01) ==
LOC: ED 12:00
DX: R33.9 Retention of urine, unspecified (principal); Z79.899 Other long term (current) drug therapy
CPT/HCPCS: 36415; 51702; 51798; 80053; 81003; 85025; 99283-25

== ENCOUNTER 2022-11-26 09:13 | Emergency (ER) | payer OTHER ==
[~2022-11-26] VITALS: Ht 175.3 cm; Wt 63.9 kg
[~2022-11-26 09:13] MED LIST changes: +FLOMAX0.4 MG PO
--- OUTSIDE RECORDS SUMMARY | 2022-11-26 09:16 | XMS ---
PreManage Notification: YESENIA BRISCOE Security Community Support Specialist Events No recent Security Events currently on file CRITERIA MET - [facility] - [facility] - 2 Visits in 30 Days CARE PROVIDERS -, [place]- Dentist: Sample Stitcher [facility] PHONE: [phone] [facility] 06/13/2021-Current PHONE: Unknown Care Guidelines exist for the following facilities: [facility] ( 11/18/2019 ) Venkatesh VISIT COUNT (12 MO.) [address] [facility] TOTAL 4 NOTE: Visits indicate total known visits. ED/UCC VISIT TRACKING (12 MO.) 11/26/2022 09:13 [facility] TYPE: Emergency COMPLAINT: - BLOOD IN URINE 11/24/2022 12:01 [facility] TYPE: Emergency COMPLAINT: - UNABLE TO URINATE 10/24/2022 22:16 [facility] TYPE: Emergency COMPLAINT: - URINATING BLOOD DIAGNOSES: - Other watermaster (current) drug therapy - Acute cystitis with hematuria - Hematuria, unspecified - Urinary tract infection, site not specified - Cerebral palsy, unspecified - Post-traumatic stress disorder, unspecified 02/20/2022 17:09 [facility] TYPE: Emergency COMPLAINT: - ALTERED INPATIENT VISIT TRACKING (12 MO.) 02/20/2022 17:10 [facility] TYPE: Observation COMPLAINT: - ENCEPHALOPATHY, LITHIUM TOXICITY DIAGNOSES: - Unspecified lack of expected normal physiological development in childhood - Other constipation - Toxic effect of other metals, accidental (unintentional), initial encounter - Contact with and (suspected) exposure to COVID-19 - Bipolar disorder, unspecified - Post-traumatic stress disorder, unspecified - Metabolic encephalopathy [email or web address]
[2022-11-26 13:15] VITALS: BP 145/77
== END 2022-11-26 13:21 | disposition home or self-care (01) ==
LOC: ED 09:13
DX: R31.9 Hematuria, unspecified (principal); F43.10 Post-traumatic stress disorder, unspecified; Z79.899 Other long term (current) drug therapy
CPT/HCPCS: 36415; 51798; 80053; 80178; 81001; 85025; 96360; 99283-25; J7030

== ENCOUNTER 2023-03-03 08:44 | Inpatient (IN) | payer OTHER ==
[2023-03-03] VITALS (9 sets, daily range): BP systolic 90–137; BP diastolic 57–97
[~2023-03-03] VITALS: Ht 175.3 cm; Wt 54.0 kg
--- OUTSIDE RECORDS SUMMARY | ~2023-03-03 | XMS | Continuity of Care Document ---
Demographics + + + | Address | [address] | | | [place] [address] | + + + | Preferred Language | Unknown | + + + | Marital Status | Never | + + + | Oriental Orthodox Affiliation | Unknown | + + + | Race | White | + + + | Ethnic Group | Unknown | + + + Author + + + | Author | [facility] | + + + | Organization | [facility] | + + + | Address | [address] | | | [place] [address] | + + + | Phone | | + + + Care Team Providers + + + + | Care Taxicab Driver Name | Role | Phone | + + + + Unavailable | Unavailable | + + + + Allergies and Intolerances + + + + + + | date | description | facility | reaction | severity | + + + + + + | (no date) | No Known Drug | [facility] | (no reaction) | (no severity) | | | Allergies | | | | + + + + + + Encounters No information. Functional Status No information. Immunizations No information. Medications No information. Problems + + + + | date | description | facility | + + + + | 2023-02-04 08:02 | CEREBRAL PALSY, | [facility] | | | UNSPECIFIED | | + + + + | 2023-02-04 08:02 | TREMOR, UNSPECIFIED | [facility] | + + + + | 2023-02-04 08:02 | [facility] | [facility] | + + + + | 2023-02-04 08:02 | OTHER CREDENTIALING SPECIALIST (CURRENT) | [facility] | | | DRUG THERAPY | | + + + + Procedures No information. Results/Labs No information. Social History No information. Vital Signs No information."
--- OUTSIDE RECORDS SUMMARY | ~2023-03-03 | XMS | Continuity of Care Document ---
Demographics + + + | Address | [address] | | | [place] [address] | + + + | Preferred Language | Unknown | + + + | Marital Status | Never | + + + | Hindu Affiliation | Unknown | + + + | Race | White | + + + | Ethnic Group | Unknown | + + + Author + + + | Author | [facility] | + + + | Organization | [facility] | + + + | Address | [address] | | | [place] [address] | + + + | Phone | | + + + Care Team Providers + + + + | Care Windows Application Packager Name | Role | Phone | + [...] + + | 2023-02-04 08:02 | OTHER CONTRACTING SPECIALIST (CURRENT) | [facility] | | | DRUG THERAPY | | + + + + Procedures No information. Results/Labs No information. Social History No information. Vital Signs No information."
--- OUTSIDE RECORDS SUMMARY | ~2023-03-03 | XMS | Continuity of Care Document ---
Demographics + + + | Address | [address] | | | [place] [address] | + + + | Preferred Language | Unknown | + + + | Marital Status | Never | + + + | Synagogue Affiliation | Unknown | + + + | Race | White | + + + | Ethnic Group | Unknown | + + + Author + + + | Author | [facility] | + + + | Organization | [facility] | + + + | Address | [address] | | | [place] [address] | + + + | Phone | | + + + Care Team Providers + + + + | Care District Representative Name | Role | Phone | + [...] + + | 2023-02-04 08:02 | OTHER APIARIST (CURRENT) | [facility] | | | DRUG THERAPY | | + + + + Procedures No information. Results/Labs No information. Social History No information. Vital Signs No information."
[~2023-03-03 08:44] MED LIST changes: -ENULOSE10 GM/15 M PO; -FIBER350 GM PO; -NYAMYC15 GM TOP; -ZYPREXA10 MG PO; +ZYPREXA15 MG PO
--- OUTSIDE RECORDS SUMMARY | 2023-03-03 08:46 | XMS ---
PreManage Notification: YESENIA BRISCOE Security Manufacturing Process Technician Events No recent Security Events currently on file CRITERIA MET - [facility] - [facility] - 2 Visits in 30 Days CARE PROVIDERS -, [place]- Dentist: Teacher [facility] PHONE: [phone] [facility] Current PHONE: Unknown Care Guidelines exist for the following facilities: [facility] ( 11/18/2019 ) Venkatesh VISIT COUNT (12 MO.) [address] [facility] TOTAL 5 NOTE: Visits indicate total known visits. 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 - Post-traumatic stress disorder, unspecified 11/24/2022 12:01 [facility] TYPE: Emergency COMPLAINT: - UNABLE TO URINATE DIAGNOSES: - Other half-way (current) drug therapy - Retention of urine, unspecified 10/24/2022 22:16 [facility] TYPE: Emergency COMPLAINT: - URINATING BLOOD DIAGNOSES: - Acute cystitis with hematuria - Cerebral palsy, unspecified - Hematuria, unspecified - 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
--- NOTE | 2023-03-03 14:33 | NUR ---
PT ARRIVED FROM ER TO CCU BY BED. PT TRANSFERED TO CCU BED WITH 4 PERSON ASSIST. REPORT RECEIVED FROM GM HWITE. PT CALLING OUT, GROANING. FLACC SCORE OF 6/10. CAREGIVER REPORRTS PT CRIES OUT AT BASELINE AND THAT IS "NORMAL FOR HIM." PT CALMS WHEN LEFT ALONE. PT CRING OUT ~EVERY 30 SECONDS. EYES CLOSED, PT DOES NOT ANSWER QUESTIONS OR INTERACT WITH CAREGIVERS AT THIS TIME. LEGS DRAWN UP WHICH PTS CAREGIVER ALSO STATES "HE DOES THAT A LOT." PT RESPONDS TO TOUCH IN ALL EXTREIMITES. PT OPENS EYES TO SOUND. PT DOES NOT FOLLOW COMMANDS AT THIS TIME. EASILY REASSURED WITH TOUCH AND VOICE. PUIPLS WNL, EQUAL AND REACTIVE. LUNG SOUNDS CLEAR. BIPAP REMAINS IN PLACE WITH 16/10 SETTINGS AND 24% FIO2. PT TOELARTING WITH OXGYEN SATUARTIONS ABOVE 94%. HEART TONES REGULAR ALTHOUG DISTANT. CARDIAC MONITORING IN PLACE WITH NORMAL SINUS RYTHEM SEEN ON MONITOR. 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 PT ABLE TO STRAIGTEN LEGS BUT IS KEEPING THEM BENT UNDER HIMSELF AT THIS TIME. ABDOMEN SOFT, CONSTIPATION SEEN ON CT SCAN. SUPPOSITORY GIVEN. BOWEL TONES HYPOACTIVE. DEPENDS IN PLACE. FAYE CATHETER IN PLACE WITH QUANITTY SUFFICIENT LIGHT PINK URINE. BLOOD SEEN AROUDN MEATUS, CONTINUES TO LEAK SMALL AMOUNTS OF RED DRAINAGE. FAYE CARE AND [place] CARE DONE. PT RESTING ON RIGHT SIDE, LACHO PROMINACES SUPPORTED WITH PILLOWS. NO ADDITONAL NEEDS AT THIS TIME. CALL LIGHT WITHIN REACH. BED RAILS UP. BED ALARM ON
--- NOTE | 2023-03-03 15:18 | NUR ---
THIS RN TO ROOM TO CHECK ON PT. PT CONTINUES RESTING ON RIGHT SIDE, CALLING OUT LESS FREQUENTLY. BIPAP IN PLACE WITH OXYGEN SATURAIONS 98% ON 24% FIO2 AND 16/10 SETTINGS. FLACC SCORE OF 4/10. PT ALLOWED TO REST. DEPENDS DRY AT THIS TIME. BED RAILS UP. BED ALARM ON.
--- NOTE | 2023-03-03 15:42 | NUR ---
PTS CAREGIVER, KARSTEN, ARRIVED TO BEDSIDE. UPDATED ON PT STATUS AND PLAN OF CARE. PT RESTING AT THIS TIME, IN BED WITH HEAD OF BED ELEVATED TO 30 DEGERES, WITH EYES CLOSED. BIPAP IN PLACE. RR OF 21. PT NO LONGER GROANING OR CALLING OUT. PT ALLOWED TO REST. CAREGIVER STATES HER QUESTIONS HAVE BEEN ANSWERED. NO ADDITIONAL REQUESTS OR CONCERNS. BED RAILS UP. BED ALARM ON. CAREGIVER REMAINS AT BEDSIDE.
--- NOTE | 2023-03-03 16:11 | NUR ---
DR RUANO TO FLOOR, UPDATED ON PT STATUS AND ASSESSMENT. DR RUANO TO BEDSIDE TO EVALUATE PT. NO NEW ORDERS AT THIS TIME. PTS CAREGIVER UPDATED ON PT STAUTS AND PLAN OF CARE. PT CONTINUES RESTING WITH EYES CLOSED. AWAKENS TO REPOSITIONING OF PILLOWS, GROANS AND THEN FALLS QUICKLY BACK TO SLEEP. NO ADDITIONAL NEEDS AT THIS TIME. BIPAP REMAINS IN PLACE SETTINGS UNCHANGED. BED ALARM ON. SPEECH LANGUAGE THERAPIST AT BEDSIDE.
--- NOTE | 2023-03-03 16:49 | NUR ---
PT ADDMITTED THIS SHIFT FOR SOMULANCE. PT REMAINS BED BOUND PER BASLINE AND NPO AT THIS TIME. IV FLUIDS INFUING. PT INTERACTES MINMALLY WITH GRUNTS AND GROANS BUT NO WORDS YET. BASELINE CONTRACUTRES PRESENT. FAYE CATHETER CHANGED IN ER WITH BLOOD SEEN AT MD CORA AWARE. URINE LIGHT PINK AND QUANITYT SUFFICIENT. TELEMETRY MONITORING SHOWS NORMAL SINUS RYTHEM WITH HEART RATE 60-100 THIS SHIFT. PT ON BIPAP THROUGHOUT SHIFT WITH 16/10 SETTINGS AND 24% FIO2 TO MAINTAIN OXYGEN SATURATIONS ABOVE 90%. CLEANER FURNITURE CONSULTATION PLACED RELATED TO RECENT WEIGHT LOSS. PTS HOME CAREGIVERS AT BEDSIDE AND UPDATED ON PLAN OF CARE. CONSTIPATION SEEN ON CT SCAN. SUPPOSITORY GIVEN. PT DOES NOT USE CALL LIGHT OR MAKES NEEDS KNOWN. INTENTIONAL HOURLY ROUDING PERFORMED.
--- NOTE | 2023-03-03 17:30 | NUR ---
THIS RN TO ROOM TO CHECK ON PT. PT CONTINUES RESTING WITH EYES CLOSED. PT AWAKNES TO VOICE AND TOUCH. DEPENDS SOILED WITH BOWEL MOVEMENT. ORLANDO CARE DONE. DEPENDS CHANGED. CATHETER CARE DONE. LARGE SOFT BROWN BOWEL MOVEMENT SEEN. PT REPOSITIONED TO LEFT SIDE BUT IMMDIATLY REPOSITIONS SELF TO RIGHT SIDE. HEAD OF BED REMAINS ELEVATED TO 35 DEGREES. LACHO PROMINANCES SUPPORTED WITH PILLOWS. BED RAILS UP. BED ALARM ON. EMERGENCY ROOM ORDERLY LEAVING BEDSIDE.
--- NOTE | 2023-03-03 18:32 | NUR ---
PT CALLING OUT ~EVERY 30 SECONDS. PT ALERT AND MOVING IN BED. PT HAS EYES OPEN AND MAKES EYE CONTACT. NO YET USING WORDS. PT GIVEN BREAK FROM BIPAP MACHINE. MAINTAINING OXYGEN SATURATION ABOVE 96% ON ROOM AIR. VITAL SIGNS STABLE. TV TURNED ON FOR PT WITH OUTDOOR CHANNEL PLAYING. PT BOOSTED IN BED TO SUPPORT BREATHIGN AND AIRWAY. NO ADDITIONAL NEEDS AT THIS TIME. CALL LIGHT WITHIN REACH. BED RAILS UP. BED ALARM ON.
--- NOTE | 2023-03-03 19:50 | NUR ---
PT CHANGED OF LARGE INCONT STOOL SOFT BROWN, ASSESSED PT YUNIER, NOTED SMALL AMOUNT OF DRIED BLOOD AT MEATUS, PT CONTINUED TO YELL OUT IS HIS NORMAL BEHAVIOR PER HIS CAREGIVERS REPORT. HE WILL MAKE EYE CONTACT WHILE TALKING TO HIM, ORAL CARE COMPLETE, PT NOTED TO HAVE INTACT SKIN ON BACK SIDE NO SIGN OF BREAKDOWN. HE IS ON ROOM AIR OXYGEN SATURTION 95% AT THIS TIME. PILLOWS PLACED FOR SUPPORT BETWEEN PT'S KNEES AND TO HIS SIDE. NO NEW CONCERNS AT THIS TIME
--- NOTE | 2023-03-03 20:47 | NUR ---
PT TURNING SELF IN BED REGULARLY, STILL YELLING OUT BUT NOT MUCH, HE IS CONSOLABLE. NO CAREGIVER AT BEDSIDE AT THIS TIME, ROUNDING FREQUENTLY FOR PT REASSURANCE. NO NEW CONCERNS, PT ALERT
--- NOTE | 2023-03-03 21:51 | NUR ---
THE PATIENT HAS BECOM AGITATED. SHE IS IN HER BED GROWLING AND RIPPING HOSPITAL EQUIPMENT OFF. UPON TRYING TO TALK WITH THE PATIENT SHE DENIES THAT SHE UNDERSTANDS WHAT IS GOING ON. ATIVAN PRN GIVEN FOR AGITATION.
--- NOTE | 2023-03-03 22:02 | NUR ---
PT CONTINUES TO YELL OUT, HE IS ALERT. CHECKED DEPENDS, HE REMIANS CLEAN, FAYE IS DRAINING YELLOW URINE.
--- NOTE | 2023-03-03 22:36 | NUR ---
PT APPEARED TO BE DROWSY, ATTEMPTED TO PLACE HOSPITAL BIPAP, HE APPEARED TO BE MORE AGITATED, AFTER 20MIN REMOVED, PT CONTINUES TO BE AGITATED, CALLED CAREGIVER TO SEE IF HOME BIPAP COULD BE BROUGHT IN. SHE SAID SHE WOULD CHECK, AND BE IN SHORTLY FOR OVER NIGHT WITH PATIENT.
--- NOTE | 2023-03-03 23:05 | NUR ---
CALLED IN REGARDS TO PT AGITATION, AND THAT CAREGIVER REPORTS THAT HE DID NOT SLEEP LAST NIGHT AND WAS AGITATED LAST NIGHT AND DID NOT SLEEP. GAVE ORDER FOR 10MG IM GEODON ONE TIME ORDER. THIS HAS BEEN ADMINISTERED, AND CAREGIVER IS NOW AT BEDSIDE. WILL MONITOR FOR FURTHER CONCERNS AND EFFECT. CAREGIVER UP DATED ON ALL CARES AND PT STATUS.
--- NOTE | 2023-03-03 23:35 | NUR ---
SET UP HOME BREATHING UNIT. MODE ASVAuto, MIN EPAP 9 MAX EPAP 15, MIN PS 3, MAX PS 15.
--- NOTE | 2023-03-03 23:40 | NUR ---
PT HOME BIPAP SET UP AND CHECKED IN BY ALVIN Jean AT THIS TIME. HE CONTINUES TO BE AGITATED WITH CAREGIVER AT BEDSIDE.
[2023-03-04] VITALS (18 sets, daily range): BP systolic 97–162; BP diastolic 53–108
--- NOTE | 2023-03-04 00:27 | NUR ---
CALLED IN REGARDS TO PT CONTINUED AGITATION, YELLING OUT DESPITE CAREGIVER AT BEDSIDE. CAREGIVER SAID THAT PT IS ADMINISTERED ATIVAN THREE TIMES A DAY AT FACILITY. NEW ORDER FOR 2MG IV ATIVAN ONE TIME DOSE AT THIS TIME
--- NOTE | 2023-03-04 01:22 | NUR ---
UPDATED AT NURSES STATION ON PT AGITATION
--- NOTE | 2023-03-04 02:09 | NUR ---
PT AGITATION IS LESS, MORE INTERMITTEN NOW, PT PROVIDED A STUFFED BEAR FROM E.D. DEPT CAREGIVER REPORTS THAT HE LOVES HIS CARE BEARS AT HOME.
--- NOTE | 2023-03-04 03:19 | NUR ---
RESTING AT TIME OF VISIT, RN STATED HE JUST WENT TO SLEEP AND WILL TRY HOME BREATHING UNIT AFTER HE FALLS ASLEEP MORE.
--- NOTE | 2023-03-04 05:14 | NUR ---
CALLED , NEW ORDER FOR ATIVAN FOR AGITATION, ADMINISTERED AT THIS TIME. PT YELLING OUT COONITNUOUSLY AND PUSHING AGAINST STAFF TRYING TO CHANGE AND REPOSITION. WILL MONITOR FOR EFFECT
--- NOTE | 2023-03-04 07:30 | NUR ---
REPORT RECEIVED FROM GM LIRA. PT RESTING IN BED WITH EYES CLOSED, RESPIRATIONS EVEN AND UNLABORED BUT OXGYEN SATUATIONS DROPPING TO 86% ON ROOM AIR. PTS HOME CPAP PLACED TO PTS FACE WITH OXGYEN SATURATIONS CLIMBING TO 94%. DEPENDS SOILED WITH SMALL SOFT BROWN STOOL. ORLANDO CARE DONE. DEPENDS CHANGED. PT BOOSTED IN BED. LACHO PROMINANCES SUPPORTED WITH PILLOWS. PT AWAKENS , MAKES EYE CONTACT, AND INTERACTS DURING DEPENDS CHANGE BUT THEN FALLS BACK TO SLEEP. NO ADDITONAL NEEDS AT THIS TIME. CALL LIGHT WITHIN REACH. BED RAILS UP.
--- NOTE | 2023-03-04 08:05 | NUR ---
MORNING ASSESSMENT AND MEDICAITON DUE. PT CONTINUES RESTING WITH EYES CLOSED WITH CPAP IN PLACE. VITAL SIGNS STABLE. PT AWAKENS TO VOICE AND LIGHT TOUCH. MAKES EYE CONTACT BUT FALLS BACK TO SLEEP AFTER BRIEF INTERACTIONS. FLACC SCORE OF 0/10. PT MOVES EASILY FOR DEPENDS CHANGE WITHOUT CRYING OUT. SEEN TO MOVE ARMS AND LEGS WHILE BEING TURNED FOR CARES. RESISTS LEG AND ARM STRAIGHTENING. CONTRACTURES REMAIN, UNCHNAGED. LUNG SOUNDS CLEAR, PT REMAINS ON HOME CPAP, WITH ROOM AIR, WHIEL RESTING. RR OF 10-14. OXGYEN SATURATIONS OF 93-96%. NORMAL WORK OF BREATHING. HEART TONES REGULAR WITH SINUS RYTHEM SEEN ON THE MONITOR AND RATE 70-80'S. ELEVATES TO 90'S WITH CARES. ABDOMEN SOFT AND NON TENDER WITH ACTIVE BOWEL TONES. PT REMAINS NPO AT THIS TIME. YELLOW, CLOUDY URINE WITH SEDIMENT SEEN IN FAYE CATHETER, QUANTITY SUFFICIENT.NO FURTHER BLEEDING SEEN AT MEATUS AT THIS TIME. DEPENDS IN PLACE. SKIN UNCHANGED, ABRASIONS AND WOUNDS STABLE. NO CAREGIVERS AT BEDSIDE AT THIS TIME. BED RAILS UP. PT RETURNS TO RESTING WITH EYES CLOSED. CALL LIGHT WITHIN REACH. BED ALARM ON.
--- NOTE | 2023-03-04 08:34 | NUR ---
DR RUANO TO BEDSIDE TO ROUND ON PT, UPDATED ON PT STATUS AND ASSESSMENT. DR. RUANO STATES HE WILL RESTARTS PTS HOME MEDS AND ENTER NEW ORDERS. PT CONTINEUS RESTING WITH EYES CLOSED. HOME CPAP IN PLACE. RT AT BEDSIDE ROUNDING ON PT. OXGYEN SATURATIONS 94% ON ROOM AIR/CPAP. NO ADDITIONAL NEEDS AT THIS TIME. BED RAILS UP. BED ALARM ON.
[2023-03-04] MEDS ORDERED: BACLOFEN10 MG PO (09:02)
[2023-03-04] MEDS ORDERED: PRIMIDONE50 MG PO (09:03)
--- NOTE | 2023-03-04 09:05 | NUR ---
PT CONTINUES RESTING WITH EYES CLOSED. HOME CPAP IN PLACE. VITAL SIGNS STABLE. PT ALLOWED TO REST. BED ALARM ON. BED RAILS UP.
[2023-03-04] MEDS ORDERED: HYDROXYZINE HCL50 MG PO (09:46)
[2023-03-04] MEDS ORDERED: MELOXICAM15 MG PO (09:46)
[2023-03-04] MEDS ORDERED: LACTULOSE10 GM/151 PO (09:51)
--- NOTE | 2023-03-04 10:24 | NUR ---
PT CRYING OUT INTERMITTANTLY. AWAKE AND ALERT. NEW ORDERS PLACED. PHARMACIST STATES TO HOLD MEDICAITONS UNTIL MEDICATION RECONCILLIATION CAN BE FINISHED. FLACC SCORE OF 6/10. NEW ORDERS FROM DR RUANO TO KEEP PT IN CCU FOR NOW BUT TRANSITION HIM TO BECOME A MED/SURG PT. STATUS ADJUSTED. ORDERS ALSO GIVEN TO ADVANCE PT TO PURREED DIET. PT TAKES BITES OF PUDDING AND APLESAUCE WITH NO SWALLOWING ISSUES, COUGHING OR THROAT CLEARNING. TYLENOL, FLOMAX AND PANTOPRAZOLE GIVEN CRUSHED IN APPLESAUCE. PT TOELARTES WELL. DEPENDS SOILED WITH STOOL. ORLANDO CARE DONE. DEPEDNS CHANGED. PT AGITATED WITH TURNING AND CRIES OUT. PT CALMS AND IS NOW RESTING ON AND OFF WITH EYES CLOSED. VITAL SIGNS STABLE. PHARMACIST UPDATING MEDICAITONS. NO ADDITIONAL NEEDS AT THIS TIME. BED RAILS UP. BED ALARM ON.
[2023-03-04] MEDS ORDERED: ENULOSE10 GM/15 M PO (10:25)
[2023-03-04] MEDS ORDERED: HALOPERIDOL2 MG PO (10:30)
[2023-03-04] MEDS ORDERED: OLANZAPINE5 MG PO (10:33)
[2023-03-04] MEDS ORDERED: TAMSULOSIN HCL0.4 MG PO (10:33)
[2023-03-04] MEDS ORDERED: ATIVAN1 MG PO (10:35)
[2023-03-04] MEDS ORDERED: DULCOLAX10 MG PR (10:37)
[2023-03-04] MEDS ORDERED: GENTLE LAXATIVE5 M1 PO (10:37)
[2023-03-04] MEDS ORDERED: NYAMYC15 GM TOP (10:38)
[2023-03-04] MEDS ORDERED: FIBER350 GM PO (10:39)
[2023-03-04] MEDS ORDERED: CHLORHEXIDINE473 ML MM (10:40)
--- NOTE | 2023-03-04 10:54 | NUR ---
PHARMACIST STATES MED RECONCILLIATION COMPLETED BY PEDRO FERRELL WHO STATES MANY OF PTS MEDICATIONS ARE DIFFERENT NOW. UPDATED AND STATES HE WILL COME TO REVIEW ORDERS. PT CONTINUES TO CALL OUT BUT REMAINS SAFE, DRY, AND IN SUPPORTIVE POSITION IN BED. VITAL SIGNS STABLE.
--- NOTE | 2023-03-04 11:28 | NUR ---
MEDICATION ORDERS COMPLETE. ORDERS GIVEN TO TRANSFER PT TO MED/SURG. ENTERED. PT TO REMAIN IN THIS ROOM BUT UNDER MED/SURG PLAN OF CARE. PT RESTING WITH EYES CLOSED. AWAKENS TO VICE AND TOUCH. PT TAKES MEDICTIONS IN PUDDING WITH NO ISSUE. HAS NOW EATEN PUDDING AND APPLESAUCE WITH GOOD TOLERANCE. CARDIAC MONITORING DC'D. IV ASSESSED, WNL. NO S/S OF PHELBITS PRESENT. IV MAGNESIUM STARTED. PT REPOSITIONED TO SEMIFOWLER IN BED, HEAD OF BED AT 30 DEGREES. PT TOLEARTING ROOM. NO ADDITIONAL NEEDS AT THIS TIME. CALL LIGHT WITHIN REACH. BED RAILS UP.
--- NOTE | 2023-03-04 12:15 | NUR ---
PTS O2 SATS DROPPING INTO 80S AND MAINTAINING. PLACED ON 3L OXYMASK. PTS PRIMARY RN AND RT NOTIFIED
--- NOTE | 2023-03-04 12:46 | NUR ---
PT SUSTAING OXGYEN SATURATIONS ABOVE 94% ON 3L OXYMASK. RT TO BEDSIDE TO [facility] HOME CPAP/BIPAP MACHINE. ADJUSTMENTS MADE PER RT, TUBING ADJUSTED. PT PLACED BACK ON HOME CPAP AND MAINTAINS OXYGEN STAURATIONS ABOVE 92%. PT RESTING WITH EYES CLOSED. VITAL SIGNS STABLE. CALL LIGHT WITHIN REACH. BED RAILS UP.
--- NOTE | 2023-03-04 13:19 | NUR ---
PT CONTINUES RESTING WITH EYES CLOSED. RESPIRATIONS EVEN AND UNLABORED. CPAP IN PLACE WITH OXGYEN SATURATIONS MAINTAINING ABOVE 94%. FLACC SCORE OF 0/10. PT ALLOWED TO REST. CALL LIGHT WITHIN REACH. LIGHTS IN ROOM ON TO PROMOT DAY TIME WAKEFULNESS. BED RAILS UP. BED ALARM ON.
--- NOTE | 2023-03-04 14:01 | NUR ---
AFTERNOON ASSESSMENT AND MEDICATION DUE. PT RESTING WITH EYES CLOSED AND CPAP IN PLACE. MARCEL, PTS CAREGIVER, ARRIVED FROM [place]. MARCEL UPDATED ON PT STATUS AND PLAN OF CARE. MARCEL VERBALIZS UNDERSTANDING AND STATES HER QUESTIONS HAVE BEEN ANSWERED. PT AWAKENS TO VOICE. PT BEGINS CALLING OUT WHICH MARCEL STATES IS PTS BASELINE SOUND MAKING. PT OPENS EYES AND MAKES EYE CONTACT. DEPENDS SOILED WITH STOOL. ORLANDO CARE DONE. DEPENDS AND LINENS CHANGED. PT CRIES OUT WITH MOVEMENT AND CARES, PTS AUTO TRANSMISSION MECHANIC CONTINUES TO STATE CRY IS PTS NORMAL VERBAL INTERACTION AND NO DISSTRESS IS SEEN FROM HER PERSPECTIVE. FLACC SCORE OF 2/10 FOR DRAWN UP TIGHT LEGS. PTS CAREGIVER STATES PT HAS HAD HIS LEGS DRAWN UP EVER SINCE CATHETER WAS PLACED IN NOVEMBER. CAREGIVER ALSO STATES PT CLENCHES FISTS AND ARCHES BACK WHICH ALSO STARTED IN NOVEMBER. CAREGIVER STATES PAIN MEDICAITONS AT HOME HAVE "NOT REALLY MADE MUCH OF A DIFFERENCE." CAREGIVER STATES SHE HAS AN APPOINTMENT SET UP WITH UROLOGY FOR FOLLOW UP. LUGN SOUNDS REMAIN CLEAR. PT TOLERATING ROOM AIR WHILE AWAKE. SWOLLEN LEFT HAND SEEN. CAREGIVER ALSO STATES THIS IS PTS BASELINE "BECAUSE HE CLENCHES HIS FISTS." PTS CAREGIVER FEEDING PT LUNCH. PT TOLEATING WELL WITH GOOD INTAKE. URINE CLEAR LIGHT YELLOW WITH MINIMAL SEDIMENT, QUANTITY SUFFICIENT. NO FURTHER BLEEDIGN SEEN AT MEATUS. SKIN UNCHANGED. NO ADDITIONAL NEEDS AT THIS TIME. CALL LIGHT WITHIN REACH. CAREGIVER REMAINS AT BEDSIDE. BED RAILS UP. HEAD OF BED AT 45 DEGREES WHILE EATING.
--- NOTE | 2023-03-04 15:20 | NUR ---
REPORT GIVEN TO GM VALVERDE ON MED/SURG WHO IS ASSUMING CARE OF PT. PT CONTINUES RESTING IN BED, CALLS OUT FROM TIME TO TIME. VITAL SIGNS STABLE. NO ADDITIONAL NEEDS AT THIS TIME.
--- NOTE | 2023-03-04 15:35 | NUR ---
PT TRANSFERRED TO UNIT FROM CCU. PT APPEARS TO BE SLEEPING COMFORTABLY. PLACED ON CPOX AND HOME CPAP. NO BLOOD NOTED AT MEATUS. ATTENDS IS NONSOILED. FAYE IN PLACE. IV FLUIDS RUNNING.
--- NOTE | 2023-03-04 18:19 | NUR ---
ATTEMPTED TO REPOSTION PT IN BED AND OFFER MEAL. PT IS ARCHING AND MOANING. TYLENOL GIVEN.
--- NOTE | 2023-03-04 19:12 | NUR ---
SHIFT REPORT RECEIVED FROM DIXIE WORRELL, PT HOLLERING OUT, SITTER AT BEDSIDE, REPORTS RECENTLY FEED PT, ALSO REPORTS THIS IS COMMON THAT PT HOLLER OUTS AT TIMES, SIDE RAILS UP X 4, BED ALARM ON, BED LOW POSITION, HOB ELEVATED.
--- NOTE | 2023-03-04 20:04 | NUR ---
PT CONTINUES TO HOLLER OUT AT TIMES, ATTEMPTS TO CALM, VS DONE, TEMP 99.4 AX, NOTED LIQUID BROWN STOOL IN ATTENDS, HS ENULOSE HELD, PT REPOSITIONED IN BED AFTER LINEN AND GOWN CHANGED, HS AND CATH CARE GIVEN, DESENEX TO GROIN, FAYE PATENT DRAINING LIGHT YELLOW CLEAR URINE, PILLOWS IN PLACE TO PAD PATIENT FROM HITTING OR RUBBING ON BED RAILS, IV INTACT, CPOX IN PLACE, RT MEDS GIVEN CRUSHED IN PUDDING, PT SWOLLOWED WITHOUT CHOKING.
--- NOTE | 2023-03-04 21:15 | NUR ---
LIGHTS DIMMED, CARTOONS ON, PT RESTING QUIETLY AT THIS TIME.
--- NOTE | 2023-03-04 22:30 | NUR ---
PT CONTINUES TO HOLLER OUT, ATTEMPTS TO REPOSITION MADE, PILLOWS FOR PADDING ON SIDE RAILS, SMALL SOFT BLANKET PLACED BETWEEN KNEES, IV PATENT SITE INTACT, PT MEDICATED WITH ATIVAN 2MG IV PER ORDER.
--- NOTE | 2023-03-04 23:20 | NUR ---
SITTER FROM PATIENT'S CARE FACILITY HER TO VISIT WITH PATIENT.
--- NOTE | 2023-03-04 23:37 | NUR ---
[facility] LEAVING DEPARTMENT, STATES PATIENT APPEARS TO BE SLEEPING, [facility] RECOMMENDS PUTTING ON CPAP IN ABOUT 1 HOURS AFTER PT IN DEEP SLEEP, PT RESTING WITH EYES CLOSED, RESP EVEN AND REG, CPOX 94-95%
--- NOTE | 2023-03-05 00:35 | NUR ---
PT APPEARS TO SLEEP, RESP EVEN AND REG, RT NOTIFIED TO REQUEST ASSIST PLACING PT ON HIS ASV (SLEEP APNEA MACHINE).
--- NOTE | 2023-03-05 00:45 | NUR ---
RT TO ROOM, PLACED PT ON ASV MACHINE, PT CONTINUES TO SLEEP, MACHINE I CUTTER READING 94%, PT WITHOUT SIGNS OF DISTRESS.
--- NOTE | 2023-03-05 02:06 | NUR ---
PT APPEARS TO SLEEP, RESP EVEN AND REG, CPOX 93%, ASV FACE MASK IN PLACE, IV SITE WNL AND IV INFUSING WELL.
--- NOTE | 2023-03-05 03:05 | NUR ---
PT APPEARS TO SLEEP, ASV (BIPAP) REMAINS ON, CPOX 94-95%.
--- NOTE | 2023-03-05 04:35 | NUR ---
PT REMAINS ASLEEP WITH ASV (BIPAP) ON, SATS STABLE, IV PATENT, FAYE DRAINING WELL LIGHT YELLOW URINE.
--- NOTE | 2023-03-05 06:09 | NUR ---
PT REMAINS ASLEEP, RESP EVEN AND REG, ASV (BIPAP) REMAINS ON, CPOX 95% HR 73, RR 16, FAYE OUTPUT 550 ML LIGHT YELLOW URINE.
--- NOTE | 2023-03-05 07:21 | NUR ---
RECEIVED REPORT FROM [facility] NURSE. PT APPEARED TO BE SLEEPING COMFORTABLY WITH CPAP ON. PT NOW AWAKE AND YELLING, ARCHING BACK. IV FLUIDS RUNNING.
[2023-03-05 09:58] VITALS: BP 135/80
--- NOTE | 2023-03-05 10:00 | NUR ---
Spoke with Shavon from [facility]. She is Emily's caregiver. He cont. to no longer walk and is now wc bound. They have recently ordered a fernanda. They provide full care. Pt cont. to yell out in excitement during our visit. She denies needs for him to dc as they have all need DME and cg. She will transport pt to home. I reminded Dr. Padilla of need for resumption orders for HH to complete daniel catheter changes when needed.
--- NOTE | 2023-03-05 12:30 | NUR ---
Faxed face sheet, H&P, DC summary, and orders faxed to [facility]. Face sheet, H&P, dc summary, and resumption of care order faxed to [facility].
== END 2023-03-05 10:57 | disposition home or self-care (01) | DRG 81 ==
LOC: ED 08:44 → CCU 13:13 → MS 13:13
PROVIDERS: ADMIT Family Medicine; ATTEND Internal Medicine
PROC: 5A09357 Assistance with Respiratory Ventilation, Less than 24 Consecutive Hours, Continuous Positive Airway Pressure (ICD-10-PCS; principal; 2023-03-03)
PROC: 0T2BX0Z Change Drainage Device in Bladder, External Approach (ICD-10-PCS; 2023-03-03)
DX: R40.0 Somnolence (principal); N39.0 Urinary tract infection, site not specified; Z68.1 Body mass index [BMI] 19.9 or less, adult; T43.4X5A Adverse effect of butyrophenone and thiothixene neuroleptics, initial encounter; T43.595A Adverse effect of other antipsychotics and neuroleptics, initial encounter; K52.89 Other specified noninfective gastroenteritis and colitis; F43.10 Post-traumatic stress disorder, unspecified; N40.1 Benign prostatic hyperplasia with lower urinary tract symptoms; F41.9 Anxiety disorder, unspecified; F20.9 Schizophrenia, unspecified; G47.33 Obstructive sleep apnea (adult) (pediatric); R62.7 Adult failure to thrive; R45.1 Restlessness and agitation; R31.9 Hematuria, unspecified; R33.8 Other retention of urine; K59.04 Chronic idiopathic constipation; G80.9 Cerebral palsy, unspecified; F31.9 Bipolar disorder, unspecified; J98.8 Other specified respiratory disorders; R63.4 Abnormal weight loss; Z90.49 Acquired absence of other specified parts of digestive tract; Z89.421 Acquired absence of other right toe(s); Z89.422 Acquired absence of other left toe(s); Z79.899 Other long term (current) drug therapy
CPT/HCPCS: 36415; 51702; 71045; 73560; 74177; 80053; 81001; 83690; 83735; 84100; 85025; 87088; 87186; 94660; 94762; 99285-25; A9270; J0696; J2060; J3475; J3486; J7030; J7121; Q9967

== ENCOUNTER 2023-06-08 06:35 | Inpatient (IN) | payer OTHER ==
[~2023-06-08] VITALS: Ht 175.3 cm; Wt 45.3 kg
[~2023-06-08 06:35] MED LIST changes: +ATIVAN1 MG PO; -AZELASTINE HCL6 ML OPTH; +AZELASTINE HCL6 ML OU; +BACLOFEN20 MG PO; +CHLORHEXIDINE473 ML MM; +ENULOSE10 GM/15 M PO; +FIBER350 GM PO; +HALOPERIDOL2 MG PO; +HYDROXYZINE HCL50 MG PO; +LACTULOSE10 GM/151 PO; +MELOXICAM15 MG PO; +NYAMYC15 GM TOP; +OLANZAPINE5 MG PO; +PRIMIDONE50 MG PO; +TAMSULOSIN HCL0.4 MG PO
--- OUTSIDE RECORDS SUMMARY | 2023-06-08 06:39 | XMS ---
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 Bill TOTAL 6 NOTE: Visits indicate total known visits. ED/UCC VISIT TRACKING (12 MO.) 06/08/2023 06:35 [facility] [place] TYPE: Emergency COMPLAINT: - FEVER 03/03/2023 08:45 [facility] [place] TYPE: Emergency COMPLAINT: - BLEEDING FROM CATH 02/04/2023 08:02 [facility] [place] [facility] [place] TYPE: Emergency COMPLAINT: - TREMORS DIAGNOSES: - Cerebral palsy, unspecified - Cramp and spasm - Other fdc (current) drug therapy - Tremor, unspecified 11/26/2022 09:13 [facility] [place] TYPE: Emergency COMPLAINT: - BLOOD IN URINE DIAGNOSES: - Hematuria, unspecified - Other terminal manager (current) drug therapy - Post-traumatic stress disorder, unspecified 11/24/2022 12:01 [facility] [place] [facility] [place] TYPE: Emergency COMPLAINT: - UNABLE TO URINATE DIAGNOSES: - Other fdc (current) drug therapy - Retention of urine, unspecified 10/24/2022 22:16 [facility] [place] TYPE: Emergency COMPLAINT: - URINATING BLOOD DIAGNOSES: - Acute cystitis with hematuria - Cerebral palsy, unspecified - Hematuria, unspecified - Other fdc (current) drug therapy - Post-traumatic stress disorder, unspecified - Urinary tract infection, site not specified INPATIENT VISIT TRACKING (12 MO.) 03/03/2023 13:[address] [facility] [place] TYPE: Medical Surgical COMPLAINT: - SOMNOLENCE DUE TO MEDICATION DIAGNOSES: - Abnormal weight loss - Abnormal weight loss - Acquired absence of other left toe(s) - Acquired absence of other left toe(s) - Acquired absence of other right toe(s) - Acquired absence of other right toe(s) - Acquired absence of other specified parts of digestive tract - Acquired absence of other specified parts of digestive tract - Adult failure to thrive - Adult failure to thrive - Adverse effect of butyrophenone and thiothixene neuroleptics, initial encounter - Adverse effect of butyrophenone and thiothixene neuroleptics, initial encounter - Adverse effect of other antipsychotics and neuroleptics, initial encounter - Adverse effect of other antipsychotics and neuroleptics, initial encounter - Altered mental status, unspecified - Anxiety disorder, unspecified - Anxiety disorder, unspecified - Benign prostatic hyperplasia with lower urinary tract symptoms - Benign prostatic hyperplasia with lower urinary tract symptoms - Bipolar disorder, unspecified - Bipolar disorder, unspecified - Body mass index [BMI] 19.9 or less, adult - Body mass index [BMI] 19.9 or less, adult - Cerebral palsy, unspecified - Cerebral palsy, unspecified - Chronic idiopathic constipation - Chronic idiopathic constipation - Constipation, unspecified - Hematuria, unspecified - Hematuria, unspecified - Mild protein-calorie malnutrition - Obstructive sleep apnea (adult) (pediatric) - Obstructive sleep apnea (adult) (pediatric) - Other terminal manager (current) drug therapy - Other fdc (current) drug therapy - Other retention of urine - Other retention of urine - Other specified noninfective gastroenteritis and colitis - Other specified noninfective gastroenteritis and colitis - Other specified respiratory disorders - Other specified respiratory disorders - Post-traumatic stress disorder, unspecified - Post-traumatic stress disorder, unspecified - Restlessness and agitation - Restlessness and agitation - Schizophrenia, unspecified - Schizophrenia, unspecified - Somnolence - Somnolence - Urinary tract infection, site not specified - Urinary tract infection, site not specified - Weakness [email or web address]
[2023-06-08 06:58] LABS: BASOPHILS 0.5 % (0-2); EOSINOPHILS 0.3 % (0-6); HEMATOCRIT 34.4 % (35.0-50.0); HEMOGLOBIN 11.4 g/dL (12.0-18.0); LYMPHOCYTES 13.6 % (24-44); MCH 30.2 (27-36); MCHC 33.1 g/dl (30-36); MCV 91.2 fl (81-99); MONOCYTES 9.1 % (0-12); NEUTROPHILS 76.5 % (39-80); PLATELET COUNT 250 K/uL (140-440); RBC 3.77 M/ul (4.3-5.7); RDW 14.3 (10.5-15.0)
[2023-06-08 07:14] LABS: ALBUMIN/GLOBULIN RATIO 0.7 (1.1-2.4); ANION GAP 10.3 (7-21); BILIRUBIN, TOTAL 0.4 ng/dL (0.2-1.0); BUN/CREATININE RATIO 29.5 (6.0-28.6); CALCIUM 8.9 mg/dL (8.5-10.1); CREATININE, SERUM 0.61 mg/dL (0.70-1.30); POTASSIUM 4.3 mmol/L (3.5-5.1); PROTEIN, TOTAL 7.3 g/dL (6.4-8.2)
[2023-06-08 07:20] LABS: LACTIC ACID, BLOOD 0.8 mmol/L (0.4-2.0)
[2023-06-08 08:38] LABS: INFLUENZA B NAA NEGATIVE (NEGATIVE); RESPIRATORY SYNCYTIAL VIR NAA NEGATIVE (NEGATIVE)
[2023-06-08 09:29] LABS: BILIRUBIN, URINE NEGATIVE (negative); BLOOD/HGB, URINE TRACE-I (Negative); KETONE, URINE SMALL (Negative); LEUK ESTERASE, URINE LARGE (negative); NITRITE, URINE POSITIVE (negative); PH, URINE 8.5 (5-7)
[2023-06-08 09:34] LABS: RED BLOOD CELLS, URINE 0-1 /hpf (0-5)
[2023-06-08 09:35] LABS: BACTERIA, URINE 4+ /hpf (negative); CASTS, URINE NONE SEEN \\lpf; CRYSTALS, URINE AMORPHOUS PHOSPH 1+ (0-1+); EPITHELIAL CELLS, URINE 0 /lpf (0-1+); REFLEX CULTURE, URINE Yes (No); WHITE BLOOD CELLS, URINE 21-40 /HPF (0-5)
[2023-06-08 09:36] LABS: COLLECTION TYPE, URINE CLEAN CATCH
[2023-06-08 10:09] VITALS: BP 122/86
--- NOTE | 2023-06-08 10:42 | NUR ---
Patient arrives to med surg room 120. Patient has MRDD, CP and in nonverbal. VSS, afebrile. On RA, patient noted to hold breath at times, spo2 94%. Noted raspy, secretions in throat. HRR. BP stable. Chronic daniel in place, draining cloudy yellow urine. Patient has extreme contractures, positioned with pillows for comfort, clean dry attends in place. Photos taken of wound on L foot. Caregiver from patient's home to provide updated med list and records. Admission hx complete to best of capability with available records and caregiver knowledge. 2 IV sites SL. Bed alarm in place, close to nurses station.
--- NOTE | 2023-06-08 10:53 | NUR ---
NEW ADMISSION ASSESSMENT. PT LYING IN BED, FREQUENT CRIES, PT ALERT AND CALMS OCCASIONALLY TO REASSURANCE AND TOUCH, FREQUETLY GRIMACES WITH TEARFULNESS. IV ACCESS IN R FOREARM AND L FOREARM. GROSS MOTOR MOVEMENT WITH ALL EXTREMETIS, CONTRACTURES PRESENT IN BOTH LEGS AND RIGHT ARM. LUNG SOUNDS CLEAR ON R SIDE, L SIDE RHONCHI PRESENT. HEART TONES REGULAR, PULSES PRESENT IN ALL EXTREMETIES, BRISK CAP REFILL <3 SECONDS IN ALL EXTREMETIES. ACTIVE BOWEL TONES, LAST BM UNKNOWN. PT HAS CHRONIC FAYE CATHETERS, FAYE CATHETER PLACED TODAY IN THE ED. URINE, QUANTITY SUFFICIENT, CLOUDY AND YELLOW. SKIN COOL, DRY, AND PALE. MUCOUS MEMBRANES DRY PT'S MOUTH STAYS OPEN MOST OF THE TIME. PRESSURE ULCERS ON TOP/SIDE OF LEFT FOOT, BLISTER ON LEFT ANKLE, REDNESS ON RIGHT PINKY TOE. PODIATRY CONSULT IS ORDERED, PHOTOS TAKEN IN ED. PT HAS A CAREGIVER AND LIVES IN [place]. CAREGIVER NOT CURRENTLY PRESENT, PT UNABLE TO ANSWER QUESTIONS VERBALLY. REPOSITIONED PT TO LEFT SIDE
--- NOTE | 2023-06-08 11:19 | NUR ---
PT UNABLE TO CONVERSE. DID NOT VISIT. PRAYED FOR PEACE AND COMFORT.
--- NOTE | 2023-06-08 11:43 | NUR ---
THIS RN CALLED DR. RUANO TO ASK FOR SOMETHING FOR PAIN FOR PT PT IS YELLING OUT AND GRIMACING. PER DR. RUANO "THE CAREGIVER STATES THIS IS THE PTs NORMAL." NO NEW ORDERS FOR PRN PAIN MEDICATION. VERBAL ORDERS FOR NS AT 100ML/HR CONTINUOUS, ROCEPHIN 1GM IV Q24 HOURS, AND CUBICIN PHARMACY TO DOSE BUT START WITH 6MG/KG." VERIFIED WITH READBACK.
[2023-06-08] MEDS ORDERED: BACLOFEN5 MG PO (12:36)
[2023-06-08] MEDS ORDERED: CLEARLAX119 GM PO (12:38)
[2023-06-08] MEDS ORDERED: HALOPERIDOL2 MG PO (12:41)
--- NOTE | 2023-06-08 12:46 | NUR ---
MED REC COMPLETE
--- NOTE | 2023-06-08 12:49 | NUR ---
HOURLY ROUNDING AND MEDICATIONS DUE. MEDICATIONS GIVEN, SEE EMAR. PT HAS 2 CAREGIVERS IN ROOM, CAREGIVER STATES THAT PT DENIES LUNCH. NO FURTHER NEEDS STATED AT THIS TIME, CALL LIGHT WITHIN REACH, BED RAILS UP.
--- NOTE | 2023-06-08 13:10 | NUR ---
Spoke with Nancy GUTIERRES, [employer]. She provides care to Emily and is in the room. She states Emily lives at [facility]. He has wc, shower chair, and a fernanda. Pt is yelling during my visit, per Nancy this is pts norm. She states pt requires full care at [facility]. Pt may return there when he is cleared medically. Nancy states Joanna Corona Coordinator will be in to stay with pt later.
[2023-06-08 13:29] VITALS: BP 126/65
--- NOTE | 2023-06-08 14:05 | NUR ---
THIS RN TALKED TO DR. RUANO, NOTIFIED THAT PT HAS CHRONIC FAYE FROM HOME IN PLACE. NEW ORDERS GIVEN, REPEAT BACK PERFORMED, ORDERS ENTERED.
--- NOTE | 2023-06-08 14:08 | NUR ---
IN TO ROUND ON PT. PT LAYING IN BED. 2 CAREGIVERS AT BEDSIDE. PT YELLING OUT AND GRIMACE NOTED. PER CAREGIVERS "THIS IS PTs NORMAL." CAREGIVERS DENY ANY NEEDS AT THIS TIME AND STATES "HE SEEMS TO BE DOING PRETTY GOOD." UPDATED ON PLAN OF CARE. NO OTHER NEEDS IDENTIFIED AT THIS TIME. CALL LIGHT IN REACH. BED ALARM ON. SIDE RAILS UP FOR SAFTEY. 2 CAREGIVERS IN ROOM WITH PT.
--- NOTE | 2023-06-08 15:04 | NUR ---
pt continues calling out. PTS CAREGIVER STATES HE IS "MORE TENSE." BOWEL MOVEMENT, SOFT AND BROWN, SEEN INDEPENDS, [place] CARE DONE. DEPENDS CHANGED. AFTERNOON MEDICATION GIVEN PER MD ORDER. HEAD OF BED AT 50 DEGREES, MEDIATION GIVEN CRUSHED IN PUDDING. PT SWALLOWS WITH TIME ALTHOUGH IS SEEN TO HOLD PUDDING/MEDICATIONS IN MOUTH FOR A TIME. PT SWALLOWS, JUICE/WATER PROVIDED. SUCTION APPLIED PT CONTINUES TO GARGLE AFTER DRINIKING FLUIDS. HEAD OF BED REMAINS ELEAVTED FOR SAFETY. PT CALMS ALTHOUGH CONTINUES TO CRY OUT AT TIMES, PER BASELINE PER CAREGIER. BED RAILS UP. CALL LIGHT WITHIN REACH. NO ADDITONAL REQUESTS OR COMPLAINTS AT THIS TIME.
--- NOTE | 2023-06-08 16:00 | NUR ---
ORDERS TO REPLACE FAYE CATHETER. PT LYING IN BED ON LEFT SIDE, WATCHING TV. CAREGIVER AT THE BEDSIDE. DC'D CATHETER PER PROTOCOL. [place] CARE DONE. ATTEMPTED FAYE CATHETER CARE PLACEMENT WITH 16 ENGLISH, NOTED TO COIL, DURING PROCEDURE PT HAS A BM. PT CLEANED AND FRESH DEPENDS IN PLACE. NEW STERILE FIELD RETRIEVED AND COUDE CATHETER PLACED PER PROTOCOL. PT REPOSITIONED, BONY PROMINENCES SUPPORTED WITH PILLOWS, PT OCCASIONALLY CALLS OUT DURING PROCEDURE PER BASELINE, CALMS ONCE PROCEDURE IS COMPLETE. CAREGIVER IS NO LONGER AT BEDSIDE, BED ALARM ON, PT ROOM NEAR NURSES STATION FOR OBSERVATION, BED RAILS UP.
--- NOTE | 2023-06-08 16:54 | NUR ---
FOCUSED ASSESSMENT. IV SITE ASSESSED, WNL. NO CHANGES IN SKIN SINCE PREVIOUS ASSESSMENT, ALLEVYN APPLIED ON LEFT ANKLE BLISTER, DIME SIZE SHADOWING ON LEFT FOOT ALLEVYN. OTHER DRESSINGS ON FOOT AND ANKLE C/D/I. NEW FAYE CATHETER DRAINING WELL, CLOUDY YELLOW URINE DRAINING VIA GRAVITY. FLACC SCORE OF 2 FOR OCCASIONAL GRIMACE AND OCCASIONAL CALLING OUT. PT INTERMITTENTLY RESTING WITH EYES CLOSED, BREATHING EVEN AND UNLABORED. PT OCCASIONALLY CALLS OUT PER BASELINE, HOB >30 DEGREES, PILLOWS ON BONY PROMINENCES, BED ALARM ON, ROOM NEAR NURSES STATION FOR OBSERVATION, BED RAILS UP.
--- NOTE | 2023-06-08 18:11 | NUR ---
HOURLY ROUNDING. PT RESTING IN BED WITH EYES CLOSED, BREATHING EVEN AND UNLABORED. BED RAILS UP, BED ALARM ON, ROOM NEAR NURSES STATION FOR OBSERVATION.
[2023-06-08 18:29] VITALS: BP 131/72
--- NOTE | 2023-06-08 18:48 | NUR ---
PT HERE FOR URINARY TRACT INFECTION. 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 PT TOLERATING 2G SODIUM PUREED DIET WITH THICKENED LIQUIDS. PT HAS MOIST UPPER AIRWAY THROAT CLEARING, PER BASELINE PER CAREGIVERS. CHRONIC FAYE CATHETER REPLACED THIS SHIFT, QUANTITY SUFFICIENT OUTPUT OF CLOUDY YELLOW URINE. PT HAS WOUNDS ON LEFT FOOT AND BLISTER ON LEFT ANKLE, PODIATRY CONSULT EXPECTED TOMORROW. Q6 BLOOD SUGAR CHECKS. PT LIVES IN A [facility] AND HAS CAREGIVERS. PT IS NOT ABLE TO USE CALL LIGHT, PT CALLS OUT FREQUENTLY PER BASELINE.
--- NOTE | 2023-06-08 19:31 | NUR ---
REPORT RECEIVED FROM DAY SHIFT RN. PT RESTING IN BED. SAFETY PRECAUTIONS MAINTAINED. CALL LIGHT WITHIN REACH. WILL CONTINUE TO MONITOR.
[2023-06-08 21:14] VITALS: BP 124/76
--- NOTE | 2023-06-08 21:20 | NUR ---
Assisted RN with brief and bed change. Checked Pt's BS, reported to RN and assesed vitals.Warm blanket left in room. Moderately thinkened fresh water refilled and left in room. Bed alarms on. Call light left in reach. No other needs apparent for Pt.
--- NOTE | 2023-06-08 22:02 | NUR ---
PT ASSESSED AND MEDICATIONS GIVEN. PT HAD A LARGE BM. FAYE IN PLACE, DRAINING WELL PER GRAVITY. IVF INFUSING PER ORDER. BS CHECKED AND STABLE. PT CONTINUES TO YELL OUT, PT REPOSITIONED, LOTS OF PILLOWS IN PLACE. BED ALARM ON. SAFETY PRECAUTIONS MAINTAINED. CALL LIGHT WITHIN REACH. WILL CONTINUE TO MONITOR.
[2023-06-09 01:35] VITALS: BP 159/72
[2023-06-09 05:21] VITALS: BP 147/82
[2023-06-09 05:41] LABS: BASOPHILS 0.6 % (0-2); EOSINOPHILS 0.4 % (0-6); HEMATOCRIT 35.6 % (35.0-50.0); HEMOGLOBIN 11.7 g/dL (12.0-18.0); LYMPHOCYTES 20.8 % (24-44); MCH 30.2 (27-36); MCHC 32.9 g/dl (30-36); MONOCYTES 9.1 % (0-12); NEUTROPHILS 69.1 % (39-80); PLATELET COUNT 227 K/uL (140-440); RBC 3.87 M/ul (4.3-5.7); RDW 14.6 (10.5-15.0)
[2023-06-09 05:59] LABS: ANION GAP 9.3 (7-21); BUN/CREATININE RATIO 29.68 (6.0-28.6); CALCIUM 9.3 mg/dL (8.5-10.1); CREATININE, SERUM 0.64 mg/dL (0.70-1.30); POTASSIUM 5.3 mmol/L (3.5-5.1)
--- NOTE | 2023-06-09 06:01 | NUR ---
PT RESTED VERY LITTLE DURING THE SHIFT. PT WAS YELLING THROUGHUT SHIFT. VSS. PT BEDBOUND, UP VIA HOITER LIFT. IVF INFUSING PER ORDER. SAFETY PRECAUTIONS MAINTAINED. CALL LIGHT WITHIN REACH. WILL CONTINUE TO MONITOR.
--- NOTE | 2023-06-09 07:20 | NUR ---
RECIEVED REPORT FROM GM GEORGE. PT LYING IN BED WITH EYES CLOSED, BREATHING EVEN AND UNLABORED. BED RAILS UP, ROOM NEAR NURSES STATION FOR OBSERVATION.
--- NOTE | 2023-06-09 07:24 | NUR ---
REPORT RECEIVED FROM GM SANTACRUZ. PT RESTING IN BED WITH EYES CLOSED, SUPPORTED WITH PILLOWS. RESPIRATIONS EVEN AND UNLABORED. BED RAILS UP. BED ALARM ON. PT NEAR NURSES STATION FOR OBSERVATION. THIS RN ASSUMING CARE OF PT WITH GM GIL.
--- NOTE | 2023-06-09 08:37 | NUR ---
MORNING ASSESSMENT. FLACC SCALE AT A 5 THIS MORNING. R+L FOREARM IVs PATENT AND FLUSHED, ASSESSED, WNL. CONTRACTURES IN ALL EXTREMETIES, PER BASELINE. PATIENT IS RESTLESS THIS MORNING DURING CARES, CALMS TO TOUCH AND THERAPEUTIC COMMUNICATION, SEE EMAR FOR MEDICATIONS GIVEN. UPPER AIRWAY CONGESTION CONTINUES, CLEARS AIRWAY WITH COUGH. PT HAS BM THIS MORNING, [place] CARE COMPLETED AND FRESH DEPENDS PLACED. MD CONSULTED REGARDING MULTIPLE BMs, STATES TO HOLD LACTULOSE AND DOCUSATE, HELD. PT TOLERATING PUREED FOODS AND THICKENED LIQUIDS WELL, CAREGIVER AT BEDSIDE FEEDING PT BREAKFAST. URINE DRAINING QUANTITY SUFFICIENT VIA GRAVITY FROM FAYE CATHETER, URINE CLEAR, YELLOW. NO CHANGES IN SKIN ASSESSMENT, ALLEVYNS CONTINUE TO BE IN PLACE ON LEFT FOOT, AWAITING PODIATRY CONSULT. DIME SIZE SHADOWING ON LEFT FOOT PRESSURE ULCER DRESSING REMAINS, ALL OTHER DRESSINGS C/D/I. CAREGIVER STATES NO FURTHER NEEDS AT THIS TIME. CALL LIGHT WITHIN REACH, CAREGIVER AT BEDSIDE, BED RAILS UP, ASPIRATION PRECAUTIONS, PILLOWS ON BONY PROMINENCES.
[2023-06-09 10:48] VITALS: BP 127/69
--- NOTE | 2023-06-09 10:53 | NUR ---
THIS RN TO ROOM WITH MD FOR ROUNDS. DR RUANO UPDATED ON PT ASSESMENT AND STATUS. PTS CAREGIVER STATES PTS HOME DOES OF TYLENOL WAS RECENTLY INCREASED TO 650ML Q4 HOUR AND SEEMS TO HELP HIM WITH PAIN. ORDERS GIVEN TO INCREASE DOSE, ORDERS ENTERED, REPEAT BACK PERFORMED. PT CONTINUES TO CRY OUT FROM TIME TO TIME, SEE MAR FOR MEDICATION GIVEN. CAREGIVER VERBALIZES UNDERSTANDING OF PLAN OF CARE AND STATES HER QUESTIONS HAVE BEEN ANSWERED. NO ADDITIONAL NEEDS AT THIS TIME. CALL LIGHT WITHIN REACH. BED RAILS UP. PT POSITOINED WITH PILLOWS FOR COMFORT AND PROTECTION OF BONY PROMINANCES.
--- NOTE | 2023-06-09 10:53 | NUR ---
HOURLY ROUNDING AND MEDICATIONS DUE. MEDICATIONS GIVEN, SEE EMAR. ROCEFIN DOSE DID NOT GET MIXED INTO NS BAG THIS MORNING, SO PT DID NOT GET DOSE, DOSE STARTED NOW BY THIS RN, NOTIFIED, NO NEW ORDERS. PT LYING IN BED WATCHING TV WITH CAREGIVER AT THE BEDSIDE. CATHETER DRAINING QUANTITY SUFFICIENT CLEAR YELLOW URINE VIA GRAVITY. CALL LIGHT WITHIN REACH, BED RAILS UP, PILLOWS ON BONY PROMINENCES.
--- NOTE | 2023-06-09 12:00 | NUR ---
THIS RN TO ROOM TO CHECK ON PT. PT CONTINUIES CALLING OUT. DEPENDS CHECKED AND LARGE SOFT BROWN BOWEL MOVEMENT SEEN. [place] CARE DONE. DEPENDS CHANGED. LINENS CHANGED. PT ANGRY WITH CARES AND CALLS OUT MORE. PT REPOSITIONED TO RIGHT SIDE LYING, WITH HEAD OF BED ELEVATED TO 30 DEGREES. PT TOELRATES BRIEFLY BEFORE SELF REPOSITIONING TO LEFT SIDE. PILLOWS IN PLACE FOR SUPPORT AND OVER LACHO PROMINANCES. LUNCH DELIVERED. PT ALLOWED QUITE TIME PRIOR TO EATING. PT CALMS ONCE LEFT ALONE. RAMPMAN TO BEDSIDE TO ASSIST WITH LUNCH. NO ADDITIONAL NEEDS AT THIS TIME. BED RAILS UP. CALL LIGHT WITHIN REACH.
--- NOTE | 2023-06-09 12:05 | NUR ---
HOURLY ROUNDING. PT LYING IN BED WATCHING TV, CALLING OUT FREQUENTLY AFTER LAB DRAW. CAREGIVER NOT IN ROOM AT THIS TIME. FLACC SCORE OF 5. BED RAILS UP, BED ALARM ON, PT ROOM NEAR NURSES STATION FOR OBSERVATION, PILLOWS ON BONY PROMINENCES.
[2023-06-09 12:08] LABS: BASOPHILS 0.5 % (0-2); EOSINOPHILS 0.8 % (0-6); HEMATOCRIT 31.3 % (35.0-50.0); HEMOGLOBIN 10.5 g/dL (12.0-18.0); LYMPHOCYTES 13.7 % (24-44); MCH 30.7 (27-36); MCHC 33.6 g/dl (30-36); MCV 91.1 fl (81-99); PLATELET COUNT 220 K/uL (140-440); RBC 3.44 M/ul (4.3-5.7); RDW 14.3 (10.5-15.0)
[2023-06-09 12:16] LABS: ANION GAP 7.9 (7-21); BUN/CREATININE RATIO 36.06 (6.0-28.6); CALCIUM 8.6 mg/dL (8.5-10.1); CREATININE, SERUM 0.61 mg/dL (0.70-1.30); MAGNESIUM 1.7 mg/dL (1.8-2.4); POTASSIUM 3.9 mmol/L (3.5-5.1)
--- NOTE | 2023-06-09 13:25 | NUR ---
AFTERNOON ASSESSMENT. PT RESTING IN BED WITH EYES CLOSED, BREATHING EVEN AND UNLABORED, HOB >30 DEGREES. R+l FOREARM IV SITES ASSESSED, WNL. NO CHANGES IN SKIN ASSESSMENT FROM THIS MORNING BUT FOR SHADOWING ON L FOOT PRESSURE ULCER INCREASING IN SIZE, NOW COVERS APPROXIMATELY 1/2 OF FOAM DRESSING. FAYE CATHETER DRAINING VIA GRAVITY, QUANTITY SUFFICIENT CLEAR YELLOW URINE PRESENT. DEPENDS IN PLACE. BED RAILS UP, BED ALARM ON, PILLOWS PROTECTING BONY PROMINENCES.
--- NOTE | 2023-06-09 13:48 | NUR ---
PTS CAREGIVER ARRIVED WITH HOME CPAP. CPAP PLACED. PT CONTINUES RESTING WITH EYES CLOSED. RESPIRATIONS EVEN AND UNLABORE. PT REPOSITIONED AND PILLOWS PLACED TO SUPPORT PT AND LACHO PROMINANCES. FAYE CATHETER TO GRAVITY DRAINAGE. BED RAILS UP. CALL LIGHT WITHIN REACH. PT ALLOWED TO REST.
[2023-06-09 14:02] VITALS: BP 107/64
--- NOTE | 2023-06-09 14:36 | NUR ---
HOURLY ROUNDING. PT RESTING WITH EYES CLOSED, BREATHING EVEN AND UNLABORED, PT WEARING PERSONAL CPAP. CAREGIVER AT BEDSIDE, CALL LIGHT WITHIN REACH, BED RAILS UP, PILLOWS PROTECTING BONY PROMINENCES.
--- NOTE | 2023-06-09 15:32 | NUR ---
HOURLY ROUNDING AND MEDICATION DUE. MEDICATIONS GIVEN, SEE EMAR. PT AWAKE AND CALLING OUT FREQUENTLY, PRN PAIN MEDICATION GIVEN. CAREGIVER AT THE BEDSIDE, DEPENDS CHECKED, CLEAN. CATHETER DRAINING WELL VIA GRAVITY. BED RAILS UP, PILLOWS PROTECTING BONY PROMINENCES. CAREGIVER INSTRUCTED NOT TO PLACE CPAP BACK ON PT FOR AN HOUR D/T PT JUST RECEIVING MEDICATIONS WITH PUDDING AND WATER.
--- NOTE | 2023-06-09 16:32 | NUR ---
HOURLY ROUNDING. PT AWAKE IN BED WATCHING TV. CAREGIVER AT THE BEDSIDE. BED RAILS UP, PILLOWS PROTECTING BONY PROMINENCES, CALL LIGHT WITHIN REACH.
--- NOTE | 2023-06-09 17:54 | NUR ---
HOURLY ROUNDING. PT RESTING WITH EYES CLOSED, NO CAREGIVER IN ROOM. CPAP PLACED ON PT. BED RAILS UP, PILLOWS PROTECTING BONY PROMINENCES, BED ALARM ON.
--- NOTE | 2023-06-09 17:54 | NUR ---
VERBAL ORDERS RECEIVED FROM DR. RUANO FOR IV MAGNESIUM. ORDERS ENTERED. REPEAT BACK PERFORMED.
--- NOTE | 2023-06-09 17:58 | NUR ---
PT HERE FOR URINARY TRACT INFECTION. 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 PT TOLERATING REGULAR PUREED DIET WITH THICKENED LIQUIDS. PT HAS MOIST UPPER AIRWAY THROAT CLEARING, PER BASELINE PER CAREGIVERS. FAYE CARE DONE THIS SHIFT, QUANTITY SUFFICIENT OUTPUT OF CLEAR YELLOW URINE. PT HAS WOUNDS ON LEFT FOOT AND BLISTER ON LEFT ANKLE, PODIATRY CONSULT EXPECTED TOMORROW. PRN PAIN MEDICATION NEEDED CONSISTENLTY THROUGHOUT SHIFT. PT LIVES IN A PRISON AND HAS CAREGIVERS THAT COME IN INTERMITTENTLY. PT IS NOT ABLE TO USE CALL LIGHT, PT CALLS OUT FREQUENTLY PER BASELINE.
--- NOTE | 2023-06-09 18:37 | NUR ---
DR RUANO STATES TO CHANGE MAGNESIUM ORDERS TO 2 GM, ORDERS ENTERED, 1GM MAGNESIUM ORDER DC'D. REPEAT BACK PERFORMED.
[2023-06-09 18:49] VITALS: BP 129/77
--- NOTE | 2023-06-09 18:58 | NUR ---
THIS RN TO ROOM TO CHECK ON PT. MAGNESIUM ORDERS VARIFIED BY PHARMACY. GIVEN ORDERED. IV ASSESSED, WNL. PT CONTINUES RESTING WITH EYES CLOSED, RESPIRATIONS EVEN AND UNLABORED. CPAP REMAINS IN PLACE. BED RAILS UP. CALL LIGHT WITHIN REACH. PT ALLOWED TO REST.
--- NOTE | 2023-06-09 19:35 | NUR ---
REPORT GIVEN TO GM GEORGE. PT RESTING WITH EYES CLOSED, BREATHING EVEN AND UNLABORED, PT'S PERSONAL CPAP ON PT. BED RAILS UP, BED ALARM ON, PILLOWS PROTECTING BONY PROMINENCES.
--- NOTE | 2023-06-09 19:39 | NUR ---
REPORT RECEIVED FROM DAY SHIFT RN. PT RESTING IN BED WITH CPAP ON. SAFETY PRECAUTIONS MAINTAINED. CALL LIGHT WITHIN REACH. WILL CONTINUE TO MONITOR.
[2023-06-09 22:21] VITALS: BP 156/100
--- NOTE | 2023-06-09 22:28 | NUR ---
PT ASSESSED AND MEDICATIONS GIVEN. PT YELLING. CAREGIVER AT BEDSIDE. VSS. FAYE IN PLACE, DRAINING WELL PER GRAVITY. SAFETY PRECAUTIONS MAINTAINED. CALL LIGHT WITHIN REACH. WILL CONTINUE TO MONITOR.
[2023-06-10 04:38] VITALS: BP 136/99
--- NOTE | 2023-06-10 06:05 | NUR ---
PT RESTED SOME DURING THE SHIFT. CAREGIVER WITH PT FOR A COUPLE HOURS DURING THE SHIFT. PT CONTIUES TO YELL OUT THROUHGOUT SHIFT. PT SLEPT HALF OF THE SHIFT. TYLENOL GIVEN FOR PAIN. IVF INFUSING PER ORDER. VSS. SAFETY PRECAUTIONS MAINTAINED. CALL LIGHT WITHIN REACH. WILL CONTINUE TO MONITOR.
--- NOTE | 2023-06-10 07:17 | NUR ---
RECEIVED REPORT FROM GM GEORGE. PT LYING IN BED WITH HOB >30 DEGREES AWAKE, PT CALLING OUT PER BASELINE. BED RAILS UP, BONY PROMINENCES PROTECTED BY PILLOWS.
--- NOTE | 2023-06-10 07:22 | NUR ---
REPORT RECEIVED FROM GM SANTACRUZ. PT RESTING IN BED, SEMIFOWLER, PT AWAKE AND CRYING OUT PER BASELINE. BED RAILS UP. CALL LIGHT WITHIN REACH. THIS RN ASSUMING CARE OF PT ANDREEA GIL RN.
--- NOTE | 2023-06-10 08:07 | NUR ---
MORNING ASSESSMENT. ATTEMPTED TO TRANSFER PT TO PERSONAL WHEELCHAIR VIA DEMETRIUS LIFT, PT NOT TOLERATING TRANSFER, TRANSFERRED BACK TO BED VIA DEMETRIUS LIFT. PT FLACC SCORE IS 8, SEE EMAR FOR MEDICATIONS GIVEN. IVF CONTINUOUS PER ORDER, IVs FLUSHED AND WNL. PT AGITATED THIS MORNING, NO CHANGES IN NEURO ASSESSMENT FROM PREVIOUS. LUNG SOUNDS CLEAR, CONGESTED COUGH REMAINS, PER BASELINE. DEPENDS CLEAN, DRAW SHEET CHANGED IT WAS MOIST, LIKELY FROM PERSPERATION. PT TEMPERATURE WNL AT 98.9. PT CONTINUES TO TOLERATE THICKENED LIQUIDS AND PUREED FOODS. FAYE IN PLACE, DRAINING QUANTITY SUFFICIENT CLEAR YELLOW URINE VIA GRAVITY. NO CHANGES IN SKIN ASSESSMENT BUT FOR ALLEVYN REPLACED ON LEFT FOOT ULCER, SMALL AMOUNT OF PURULENT DRAINAGE PRESENT ON REMOVED DRESSING. NO CAREGIVER AT BEDSIDE THIS MORNING, CARES EXPLAINED TO PT. PT EATS FEW BITES OF FOOD, REFUSES BREAKFAST, TRAY COVERED.
--- NOTE | 2023-06-10 08:44 | NUR ---
THIS RN TO ROOM TO CHECK ON PT. PT RESTING IN BED, NOW MUCH CALMER WITH OCCATIONAL FROWN AND OCCATIONAL CRY OUT (EVERY 10 MINUTES OR SO). PT WELL SUPPORTED WITH PILLOWS. AWAKE AND MAKES EYE CONTACT. BED RAILS UP. CALL LIGHT WITHIN REACH. BED ALARM ON.
--- NOTE | 2023-06-10 09:25 | NUR ---
ABX DUE. THIS RN TO ROOM. PT RESTING CALMLY IN BED. CRYING OUT VERY RARELY, FLACC SCORE NOW 3/10. PTS CAREGIVER AT BEDSIDE AND STATES "YOU LOOK SO, SO COMFORTABLE RIGHT NOW. HE LOOKS SO MUCH BETTER." ABX GIVEN THROUGH LEFT FORARM IV SITE. IV WNL WITH NO S/S OF PHLEBITIS. IV SALINE LOCKED. ALCOHOL APPLIED. NO ADITONAL NEEDS AT THSI TIME. CALL LIGHT WIHTIN REACH. BED RAILS UP.
--- NOTE | 2023-06-10 09:58 | NUR ---
HOURLY ROUNDING. CAREGIVER AT THE BEDSIDE. PT NO LONGER DIAPHORETIC, PT RESTING IN BED WATCHING TV, APPEARS LESS AGITATED THAN PREVIOUS. PT HAS EATEN SOME BREAKFAST. NO FURTHER NEEDS STATED AT THIS TIME, CALL LIGHT WITHIN REACH, BED ALARM ON, BED RAILS UP, PILLOWS PROTECTING BONY PROMINENCES.
[2023-06-10 11:02] VITALS: BP 113/80
--- NOTE | 2023-06-10 11:10 | NUR ---
HOURLY ROUNDING. PT LYING IN BED WITH EYES CLOSED, CALLING OUT OCCASIONALLY PER BASELINE. CAREGIVER REQUESTED LUNG SOUNDS TO BE LISTENED TO AND COMPARED TO YESTERDAY, NO CHANGE IN LUNG SOUNDS, UPPER AIRWAY CONGESTION REMAINS PER BASELINE. CAREGIVER REQUESTING ORAL CARE AND SHAVING SUPPLIES, PROVIDED. CALL LIGHT WITHIN REACH, BED RAILS UP, BED ALARM ON, PILLOWS PROTECTING BONY PROMINENCES.
--- NOTE | 2023-06-10 12:21 | NUR ---
HOURLY ROUNDING. CAREGIVER NOT AT BEDSIDE, CAREGIVER THAT WAS IN ROOM PROVIDED ORAL CARE AND SHAVED PT'S FACE. PT FLACC SCORE 3, SEE EMAR FOR MEDICATION GIVEN. PT WATCHING TV, BED RAILS UP, BED ALARM ON, IVF CONTINUOUS PER ORDER. PT EATING LUNCH WITH ASSISTANCE. PILLOWS FOR PROTECTION ON BONY PROMINENCES.
[2023-06-10] MEDS ORDERED: AMOXICILLIN875 MG PO (13:32)
--- NOTE | 2023-06-10 13:45 | NUR ---
AFTERNOON ASSESSMENT. PT LYING IN BED WATCHING TV, CAREGIVER AT THE BEDSIDE. NO CHANGES IN SKIN BUT FOR SUPERFICIAL ABRASION TO LEFT KNEE, SUSPECTED PT WAS RUBBING KNEE ON L BED RAIL, PT REPOSITIONED TO PROTECT L KNEE, PILLOWS PLACED TO HOLD REPOSITIONING AND PROTECT BONY PROMINENCES. DR RUANO STATES THAT PODIATRY CONSULT WILL BE DONE OUTPATIENT, CHARGE NURSE NOTIFIED. FAYE DRAINING CLEAR YELLOW QUANTITY SUFFICIENT URINE VIA GRAVITY. PT HAS BM, [place] CARE/ CATHETER CARE COMPLETED AND NEW DEPENDS IN PLACE. CAREGIVER AND PT UPDATED ON PLAN OF CARE, CAREGIVER VERBALIZES UNDERSTANDING. CALL LIGHT WITHIN REACH, BED RAILS UP, BED ALARM ON, HEEL PADS ON, PILLOWS PROTECTING BONY PROMINENCES.
--- NOTE | 2023-06-10 14:42 | NUR ---
DR LEAVITT TO BEDSIDE FOR CONSULTATION. DR LEAVITT UPDATED ON PT STATUS. BANDAGES REMOVED. WOUND EVALUATED WITH SHARP DEBRIDMENT BY DR LEAVITT. ORDERS GIVEN FOR BEDSIDE 3 VIEW X-RAY OF FOOT. ORDERS ENTERED, REPEAT BACK PERFORMED. FIBROUS TISSUE REMOVED. NEW DRESSING APPLIED PER DR. LEAVITT. OTHER SPOTS TO PROXIMAL LEFT FOOT AND REDNESS TO RIGHT BIG TOE REMAIN OPEN PER DR LEAVITT. PT TOLERATED PROCEEDURE WELL WITH OCCATIONAL CRY OUT. PT RELAXES WITH FLACC SCORE OF 3/10 AFTER PROCEEDURE IS COMPLETE. X-RAY CALLED, AND TO BEDSIDE. IMAGES TAKE WITH POSITIONING HELP BY THIS RN. DR. LEAVITT REVIEWS IMAGES AT BEDSIDE. NEW LAB ORDERS GIVEN. ORDERS ENTERED, REPEAT BACK PERFORMED. LABS DRAWN BY GM GIL (SEE LAB CHARTING). DR LEAVITT STATES PT IS OK FOR DISCHARGE AND FOLLOW UP AN OUTPATIENT. INFRASTRUCTURE TECH UPDATED. PTS CAREGIVER STATES CLAUDETTE, CAREGIVER, HAS BEEN CONTACTED ADN WILL ARRIVE SOON FOR DISCHRAGE INSTRUCTIONS AND UPDATES ON PLAN OF CARE. NO ADDITIONAL NEEDS AT THIS TIME. CALL LIGHT WITHIN REACH. BED RAILS UP. HEAD OF BED ELEVATED TO 35 DEGREES.
--- NOTE | 2023-06-10 15:34 | NUR ---
DISCHARGE NOTE. PT IVs DC'D, PT DRESSED BY RN AND CAREGIVER. VSS. FLACC SCORE 3. PT TRANSFERRED TO PERSONAL WHEELCHAIR VIA DEMETRIUS LIFT. CATHETER IN PLACE, DRAINING CLEAR YELLOW URINE QUANTITY SUFFICIENT. ALL PERSONAL BELONGINGS WITH PT AND CAREGIVER. CAREGIVER GIVEN DC INSTRUCTIONS, VERBALIZES UNDERSTANDING OF MEDICATIONS, FOLLOW-UP, AND INSTRUCTIONS. PT CAREGIVER STATES ALL QUESTIONS HAVE BEEN ANSWERED. AFTERNOON MEDICATIONS GIVEN PRIOR TO DISCHARGE, SEE MAR. PATIENT WHEELED TO FRONT OF BUILDING WITH CAREGIVER.
[2023-06-10 15:38] VITALS: BP 140/94
--- NOTE | 2023-06-11 11:06 | NUR ---
Chart [facility] to [facility] with [facility], DC summary, Referral, F2F, face sheet as pts Cert period ended while he was in the hospital. Orders completed by Dr. Padilla.
== END 2023-06-10 15:55 | disposition home or self-care (01) | DRG 987 ==
LOC: ED 06:35 → MS 09:05
PROVIDERS: Internal Medicine; ADMIT Internal Medicine; ATTEND Internal Medicine
PROC: 0QBP0ZZ Excision of Left Metatarsal, Open Approach (ICD-10-PCS; principal; 2023-06-10)
DX: T83.511A Infection and inflammatory reaction due to indwelling urethral catheter, initial encounter (principal); A41.9 Sepsis, unspecified organism; L03.115 Cellulitis of right lower limb; L97.526 Non-pressure chronic ulcer of other part of left foot with bone involvement without evidence of necrosis; N39.0 Urinary tract infection, site not specified; R62.50 Unspecified lack of expected normal physiological development in childhood; F31.9 Bipolar disorder, unspecified; F41.9 Anxiety disorder, unspecified; K59.09 Other constipation; F20.9 Schizophrenia, unspecified; F43.10 Post-traumatic stress disorder, unspecified; G80.9 Cerebral palsy, unspecified; Z89.422 Acquired absence of other left toe(s); Z89.421 Acquired absence of other right toe(s)
CPT/HCPCS: 36415; 71045; 73630; 80048; 80053; 81001; 83605; 83735; 85025; 85651; 86140; 87502; 96365; 96366; 96375; 97163; 97167; 99285-25; A9270; A9270-GY; C9803; J0696; J0878; J3475; J7030; J7121; U0002

== ENCOUNTER 2023-06-26 11:13 | Emergency (ER) | payer OTHER ==
[~2023-06-26] VITALS: Ht 175.3 cm; Wt 47.2 kg
[~2023-06-26 11:13] MED LIST changes: +AMOXICILLIN875 MG PO; +CLEARLAX119 GM PO
--- OUTSIDE RECORDS SUMMARY | 2023-06-26 11:16 | XMS ---
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 - 2 Visits in 30 Days CARE PROVIDERS -, George- Dentist: [employer] [facility] PHONE: [phone] [facility] Current PHONE: Unknown Care Guidelines exist for the following facilities: Gio Ang ( 11/18/2019 ) Venkatesh VISIT COUNT (12 MO.) [address] [facility] TOTAL 7 NOTE: Visits indicate total known visits. ED/UCC VISIT TRACKING (12 MO.) 06/26/2023 11:14 [facility] [place] TYPE: Emergency COMPLAINT: - FALL, HEAD/FACE LAC 06/08/2023 06:35 [facility] [place] TYPE: Emergency COMPLAINT: - FEVER 03/03/2023 08:45 [facility] [place] TYPE: Emergency COMPLAINT: - BLEEDING FROM CATH 02/04/2023 08:[address] [facility] [place] TYPE: Emergency COMPLAINT: - TREMORS DIAGNOSES: - Cerebral palsy, unspecified - Cramp and spasm - Other custodial (current) drug therapy - Tremor, unspecified 11/26/2022 09:13 [facility] [place] TYPE: Emergency COMPLAINT: - BLOOD IN URINE DIAGNOSES: - Hematuria, unspecified - Other custodial (current) drug therapy - Post-traumatic stress disorder, unspecified 11/24/2022 12:[address] [facility] [place] TYPE: Emergency COMPLAINT: - UNABLE TO URINATE DIAGNOSES: - Other custodial (current) drug therapy - Retention of urine, unspecified 10/24/2022 22:16 [facility] [place] TYPE: Emergency COMPLAINT: - URINATING BLOOD DIAGNOSES: - Acute cystitis with hematuria - Cerebral palsy, unspecified - Hematuria, unspecified - Other custodial (current) drug therapy - Post-traumatic stress disorder, unspecified - Urinary tract infection, site not specified INPATIENT VISIT TRACKING (12 MO.) 06/08/2023 09:05 [facility] [place] TYPE: Medical Surgical COMPLAINT: - CELLULITIS DIAGNOSES: - Acquired absence of other left toe(s) - Acquired absence of other left toe(s) - Acquired absence of other right toe(s) - Acquired absence of other right toe(s) - Anxiety disorder, unspecified - Anxiety disorder, unspecified - Bipolar disorder, unspecified - Bipolar disorder, unspecified - Cellulitis of right lower limb - Cellulitis of right lower limb - Cerebral palsy, unspecified - Cerebral palsy, unspecified - Contracture, left foot - Infection and inflammatory reaction due to indwelling urethral catheter, initial encounter - Infection and inflammatory reaction due to indwelling urethral catheter, initial encounter - Non-pressure chronic ulcer of other part of left foot with bone involvement without evidence of necrosis - Non-pressure chronic ulcer of other part of left foot with bone involvement without evidence of necrosis - Other constipation - Other constipation - Post-traumatic stress disorder, unspecified - Post-traumatic stress disorder, unspecified - Pressure ulcer of other site, stage 4 - Schizophrenia, unspecified - Schizophrenia, unspecified - Sepsis, unspecified organism - Sepsis, unspecified organism - Unspecified lack of expected normal physiological development in childhood - Unspecified lack of expected normal physiological development in childhood - Urinary tract infection, site not specified 03/03/2023 13:[address] [facility] [place] [...] Obstructive sleep apnea (adult) (pediatric) - Other termite inspector (current) drug therapy - Other termite inspector (current) drug therapy - Other retention of [...] tract infection, site not specified - Weakness [email or web address]
[2023-06-26 12:11] VITALS: BP 115/74
[2023-07-02] MEDS ORDERED: AZITHROMYCIN500 MG PO (23:43)
[2023-07-02] MEDS ORDERED: CEFDINIR300 MG PO (23:43)
[2023-07-02] MEDS ORDERED: ACETAMINOPHEN650 MG PR (23:46)
== END 2023-06-26 12:15 | disposition home or self-care (01) ==
LOC: ED 11:13
DX: S01.111A Laceration without foreign body of right eyelid and periocular area, initial encounter (principal); S01.21XA Laceration without foreign body of nose, initial encounter; G80.9 Cerebral palsy, unspecified; F20.9 Schizophrenia, unspecified; W06.XXXA Fall from bed, initial encounter; Z79.899 Other long term (current) drug therapy
CPT/HCPCS: 12013; 99282

== ENCOUNTER 2023-07-03 11:36 | Emergency (ER) | payer OTHER ==
[~2023-07-03] VITALS: Ht 175.3 cm; Wt 51.0 kg
[~2023-07-03 11:36] MED LIST changes: +ACETAMINOPHEN650 MG PR; +AZITHROMYCIN500 MG PO; +CEFDINIR300 MG PO
--- OUTSIDE RECORDS SUMMARY | 2023-07-03 11:38 | XMS ---
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 TOTAL 9 NOTE: Visits indicate total known visits. ED/UCC VISIT TRACKING (12 MO.) 07/03/2023 11:36 [facility] TYPE: Emergency COMPLAINT: - SOB 07/02/2023 21:58 [facility] TYPE: Emergency COMPLAINT: - FEVER 06/26/2023 11:14 [facility] TYPE: Emergency COMPLAINT: - FALL, HEAD/FACE LAC DIAGNOSES: - Cerebral palsy, unspecified - Fall from bed, initial encounter - Laceration without foreign body of nose, initial encounter - Laceration without foreign body of right eyelid and periocular area, initial encounter - Other intermediate (current) drug therapy - Schizophrenia, unspecified 06/08/2023 06:35 [facility] TYPE: Emergency COMPLAINT: - FEVER 03/03/2023 08:45 [facility] TYPE: Emergency COMPLAINT: - BLEEDING FROM CATH 02/04/2023 08:02 [facility] TYPE: Emergency COMPLAINT: - TREMORS DIAGNOSES: - Cerebral palsy, unspecified - Cramp and spasm - Other intermediate (current) drug therapy - Tremor, unspecified 11/26/2022 09:13 [facility] TYPE: Emergency COMPLAINT: - BLOOD IN URINE DIAGNOSES: - Hematuria, unspecified - Other intermediate teacher (current) drug therapy - Post-traumatic stress disorder, unspecified 11/24/2022 12:01 [facility] TYPE: Emergency COMPLAINT: - UNABLE TO URINATE DIAGNOSES: - Other intermediate teacher (current) drug therapy - Retention of urine, unspecified 10/24/2022 22:16 [facility] TYPE: Emergency COMPLAINT: - URINATING BLOOD DIAGNOSES: - Acute cystitis with hematuria - Cerebral palsy, unspecified - Hematuria, unspecified - Other intermediate teacher (current) drug therapy - Post-traumatic stress disorder, [...] tract infection, site not specified 03/03/2023 13:13 [facility] TYPE: Medical Surgical COMPLAINT: - SOMNOLENCE [...] Obstructive sleep apnea (adult) (pediatric) - Other intermediate teacher (current) drug therapy - Other intermediate (current) drug therapy - Other retention of [...] tract infection, site not specified - Weakness [email or web address]
[2023-07-03] MEDS ORDERED: ALBUTEROL2.5 MG/3 M INH (12:55)
[2023-07-03 13:34] VITALS: BP 100/66
== END 2023-07-03 13:36 | disposition home or self-care (01) ==
LOC: ED 11:36
DX: J98.4 Other disorders of lung (principal); G80.9 Cerebral palsy, unspecified; K59.09 Other constipation; F20.9 Schizophrenia, unspecified; F41.9 Anxiety disorder, unspecified; F32.A Depression, unspecified; Z79.899 Other long term (current) drug therapy
CPT/HCPCS: 71045; 94640